=== PATIENT | female | born 1980 | race Caucasian/White ===

== ENCOUNTER 2020-09-29 15:00 | Inpatient (IN) | payer OTHER ==
[~2020-09-29] VITALS: Ht 172.7 cm; Wt 104.2 kg
[2020-09-29] VITALS (11 sets, daily range): BP systolic 96–178; BP diastolic 59–101
[2020-09-29] MEDS ORDERED: SODIUM BICARB ADULT 8.4% 50 MEQ/50 ML DISP.SYRIN. IV ONE (15:15)
[2020-09-29 15:29] LABS: BASE EXCESS ABG -5 mmol/L (-3-3); HCO3 ABG 17 mmol/L (21-28); PCO2 ABG 23 mmHg (35-46); PO2 ABG 60 mmHg (75-108); SAT O2 ABG 93 % (92-99)
[2020-09-29 15:30] LABS: CORRECTED PCO2 ABG 26 mmHg; CORRECTED PH ABG 7.44; CORRECTED PO2 ABG 70 mmHg
[2020-09-29] MEDS ORDERED: IV NORMAL SALINE 1000ML BAG 1,000 ML IV ONE (15:30)
--- NOTE | 2020-09-29 15:30 | NUR ---
Pt admitted to room 105 from [facility] surg unit via ambulance. Pt is very anxious and c/o horrible pain to her right arm. Right arm is red, hot to touch, and swollen. Redness extends from the entirety of the arm and onto her chest and up her neck. Conservation Science Officer unable to draw labs, pt verbally consented to central line placement and IR notified. PT has cell phone and called mother to update her. This nurse updated . Pt ST on monitor, see admission for further information.
[2020-09-29 15:47] LABS: FIO2 ABG 40/5LNC
[2020-09-29] MEDS ORDERED: INSU100C SQ (15:49)
[2020-09-29] MEDS ORDERED: INSU100I13 SQ (15:49)
[2020-09-29] MEDS ORDERED: ONDA4TAB7 IVP (15:49)
--- NOTE | 2020-09-29 15:50 | NUR ---
Dr. Willis notified of pts admission and current status, please see orders for further details.
[2020-09-29] MEDS: MORPHINE SULFATE 4 MG/ML VIAL. IV PRN ×2 (15:57→20:58)
[2020-09-29] MEDS: ACETAMINOPHEN 325 MG TABLET. PO PRN (16:00)
--- NOTE | 2020-09-29 16:01 | RAD ---
EXAM: Chest, single view. HISTORY: Central line placement. COMPARISON: 09/28/2020 FINDINGS: A frontal view of the chest is obtained. There is a right internal jugular catheter with th e tip in the right atrium. There is no pneumothorax. There is a small right pleural effusion and righ t pleural thickening. There is diffuse right lung interstitial infiltrate. There is left basilar atel ectasis or infiltrate. The heart is normal in size. IMPRESSION: 1. Right internal jugular catheter with the tip in the right atrium. There is no pneumothorax. 2. Small right pleural effusion and pleural thickening with diffuse right lung infiltrate. There is a lso stable left basilar atelectasis or interstitial infiltrate. Electronically signed by: Geovanna Langford MD (09/29/2020 3:59 PM) [id number]
--- NOTE | 2020-09-29 16:11 | RAD ---
Procedure: Placement of right internal jugular central line at the bedside with ultrasound guidance Sterility: All elements of maximal sterile barrier technique including the use of a cap, mask, steril e gown, sterile gloves, large sterile sheet, appropriate hand hygiene, and 2% chlorhexidine for cutan eous antisepsis (or acceptable alternative antiseptic per current guidelines) were followed for this procedure. Consent: The procedure was explained in its entirety to the patient or the patients designated repres entative by a member of the treatment team, including a discussion of the risks, benefits and commonl y accepted alternatives to the procedure, as well as the expected consequences of no therapy whatsoev er. Discussion of the risks included, but was not limited to, those that are most frequent and thos e that are rare but possibly severe or life-threatening, as well as the possibility of unforeseen com plications. Technique and Findings: Following informed consent, the patient was prepped and draped in the usual s terile fashion. Ultrasound interrogation of the right neck revealed patency and compressibility of t he right internal jugular vein. A 21-gauge micropuncture was then used to gain access to this vein u nder ultrasound guidance. A hard copy ultrasound image was recorded. A guidewire was advanced centra lly over which, following dilatation, a triple-lumen central venous catheter was placed. The new cat heter was found to flush and aspirate normally. The catheter was secured in place. Sterile dressings were applied. No immediate complications were identified. Follow-up chest radiograph demonstrates the catheter to be in acceptable position. Low lung volumes noted. IMPRESSION: Ultrasound-guided placement of right internal jugular triple-lumen central venous cathete r Electronically signed by: Darin Robbins MD (09/29/2020 4:09 PM) [id number]
[2020-09-29 16:24] LABS: BASO # 0.1 x10^3/uL (0.0-0.2); BASO % 1 % (0-3); EOS # 0.1 x10^3/uL (0.0-0.7); EOS % 1 % (0-3); HEMATOCRIT 37.1 % (36.0-47.0); LYMPH % 6 % (24-48); MEAN CORPUSCULAR HEMOGLOBIN 32 pg (25-35); MEAN CORPUSCULAR HGB CONC 35 g/dL (31-37); MEAN CORPUSCULAR VOLUME 93 fL (79-100); MONO % 6 % (0-9); NEUT # 13.6 x10^3/uL (1.8-7.7); NEUT % 86 % (31-73); PLATELET COUNT 191 x10^3/uL (140-400); RED CELL DISTRIBUTION WIDTH 12.6 % (11.5-14.5); WHITE BLOOD COUNT 15.7 x10^3/uL (4.0-11.0)
[2020-09-29] MEDS: VANCOMYCIN PER PHARMACY MC PRN (16:32)
[2020-09-29 16:33] LABS: CALCIUM 8.3 mg/dL (8.5-10.1); CREATININE 0.7 mg/dL (0.6-1.0); GFR 93.2; POTASSIUM 3.7 mmol/L (3.5-5.1)
--- NOTE | 2020-09-29 16:34 | NUR ---
Pharmacy Vancomycin Dosing Note S:Consulted to monitor and dose vancomycin started 09/28/20. O:JONATAN SON is a 40 year old F with Cellulitis . Height: 5 feet, 8 inches Weight: 98.9 kg [place] Body Weight: 252.27 Adjusted Body Weight: Dosing Weight: Other Antibiotics: LABS: Last BUN: Last Creatinine: 1.2 Creatinine Clearance: mL/min Last WBC: Last Procalcitonin: Tmax (past 24 hours): Microbiology: I/O: Drug Levels: Last level: on at Last dose given 09/29/20 at 0517 Vancomycin Dosing: Loading Dose: 2000 mg x1 Dosing Weight: Target Trough: 10-20 A: 2GM IV VANCOMYCIN STARTED AT [facility] AND LAST DOSE OF 1.5GM IV GIVEN THIS MORNING AT 05:17AM P: 1. Continue Vancomycin 1500 mg IV q12h 2. Follow up Trough level on 09/30/20 at 0530 3. Pharmacy will continue to monitor, follow and adjust therapy as needed. [facility]EVAN [facility], 09/29/20 [id number]
[2020-09-29 16:40] LABS: ALBUMIN 2.2 g/dL (3.4-5.0); ALBUMIN/GLOBULIN RATIO 0.5 (1.0-1.7); MAGNESIUM 1.9 mg/dL (1.8-2.4); PHOSPHORUS 1.7 mg/dL (2.6-4.7); TOTAL BILIRUBIN 1.7 mg/dL (0.2-1.0); TOTAL PROTEIN 6.6 g/dL (6.4-8.2)
[2020-09-29 17:17] LABS: % BANDS 45 % (0-9); % LYMPHS 7 % (24-48); % MONOS 6 % (0-10); % SEGS 42 % (35-66); PLT ESTIMATE ADEQUATE (ADEQUATE); TOXIC GRANULATION MOD; TOXIC VACUOLATION SLIGHT
--- NOTE | 2020-09-29 17:30 | RAD ---
EXAM: Right shoulder, 3 views; right humerus, 2 views; right elbow, 2 views. HISTORY: Swelling. COMPARISON: None. FINDINGS: 3 views of the right shoulder and 2 views of the right humerus and elbow are obtained. Ther e is mild acromial clavicular joint osteoarthritis with a small inferiorly directed distal clavicular spur. There is a right subclavian catheter with the tip excluded from the [id number]. No pneumoth orax is seen. There is a small right pleural effusion and diffuse increased right lung interstitial o pacity. There is no fracture, dislocation or subluxation. There is right upper extremity soft tissue edema. Evaluation for an elbow effusion is limited due to oblique lateral positioning. IMPRESSION: 1. Mild acromioclavicular joint osteoarthritis with small inferiorly directed distal clavicular spur. 2. No acute osseous finding. 3. Right upper extremity soft tissue edema. 4. Small right pleural effusion and diffuse right lung interstitial infiltrate. There is a right cent ral venous catheter partially included on the [id number]-rt-[id number]. Electronically signed by: Geovanna Langford MD (09/29/2020 5:28 PM) [id number]
--- NOTE | 2020-09-29 17:30 | RAD ---
EXAM: Right shoulder, 3 views; right humerus, 2 views; right elbow, 2 views. HISTORY: Swelling. COMPARISON: None. FINDINGS: 3 views of the right shoulder and 2 views of the right humerus and elbow are obtained. Ther e is mild acromial clavicular joint osteoarthritis with a small inferiorly directed distal clavicular spur. There is a right subclavian catheter with the tip excluded from the [id number]-wa-[id number]. No pneumoth orax is seen. There is a small right pleural effusion and diffuse increased right lung interstitial o pacity. There is no fracture, dislocation or subluxation. There is right upper extremity soft tissue edema. Evaluation for an elbow effusion is limited due to oblique lateral positioning. IMPRESSION: 1. Mild acromioclavicular joint osteoarthritis with small inferiorly directed distal clavicular spur. 2. No acute osseous finding. 3. Right upper extremity soft tissue edema. 4. Small right pleural effusion and diffuse right lung interstitial infiltrate. There is a right cent ral venous catheter partially included on the [id number]-fx-kuuy. Electronically signed by: Geovanna Langford MD (09/29/2020 5:28 PM) [id number]
--- NOTE | 2020-09-29 17:30 | RAD ---
EXAM: Right shoulder, 3 views; right humerus, 2 views; right elbow, 2 views. HISTORY: Swelling. COMPARISON: None. FINDINGS: 3 views of the right shoulder and 2 views of the right humerus and elbow are obtained. Ther e is mild acromial clavicular joint osteoarthritis with a small inferiorly directed distal clavicular spur. There is a right subclavian catheter with the tip excluded from the schfc-wm-iooz. No pneumoth orax is seen. There is a small right pleural effusion and diffuse increased right lung interstitial o pacity. There is no fracture, dislocation or subluxation. There is right upper extremity soft tissue edema. Evaluation for an elbow effusion is limited due to oblique lateral positioning. IMPRESSION: 1. Mild acromioclavicular joint osteoarthritis with small inferiorly directed distal clavicular spur. 2. No acute osseous finding. 3. Right upper extremity soft tissue edema. 4. Small right pleural effusion and diffuse right lung interstitial infiltrate. There is a right cent ral venous catheter partially included on the fnbja-vx-eoel. Electronically signed by: Geovanna Langford MD (09/29/2020 5:28 PM) [id number]
[2020-09-29] MEDS: HYDROmorphone 2 MG/ML VIAL IVP PRN ×2 (17:35→23:56)
[2020-09-29] MEDS ORDERED: VANCOMYCIN 1.5 GM in IV NORMAL SALINE 500ML BAG 500 ML IV SCH (18:00)
--- NOTE | 2020-09-29 18:51 | NUR ---
Cj notified of consult.
[2020-09-29] MEDS ORDERED: CLINDAMYCIN 600MG PREMIX 50 ML IV SCH (20:30)
[2020-09-29] MEDS: CEFEPIME HCL IV Push 2 GM VIAL. IVP SCH ×2 (20:34→21:35)
[2020-09-29] MEDS: INSULIN LISPRO 300 UNITS/3 ML VIAL. SQ SCH (20:52)
[2020-09-29] MEDS: INSULIN GLARGINE SYRINGE. SQ SCH (20:53)
[2020-09-29] MEDS: IV NORMAL SALINE 1000ML BAG 1,000 ML IV SCH (20:59)
[2020-09-29] MEDS: CLINDAMYCIN 600MG PREMIX 50 ML IV SCH (21:35)
[2020-09-30] VITALS (21 sets, daily range): BP systolic 104–167; BP diastolic 54–108
[2020-09-30] MEDS: IV NORMAL SALINE 1000ML BAG 1,000 ML IV SCH ×2 (01:57→13:02)
[2020-09-30] MEDS: MORPHINE SULFATE 4 MG/ML VIAL. IV PRN ×7 (01:57→23:46)
[2020-09-30] MEDS: HYDROmorphone 2 MG/ML VIAL IVP PRN ×5 (04:50→22:31)
[2020-09-30 05:20] LABS: BASO # 0.2 x10^3/uL (0.0-0.2); BASO % 1 % (0-3); EOS # 0.2 x10^3/uL (0.0-0.7); EOS % 1 % (0-3); HEMATOCRIT 36.4 % (36.0-47.0); HEMOGLOBIN 12.4 g/dL (12.0-15.5); LYMPH # 1.6 x10^3/uL (1.0-4.8); LYMPH % 10 % (24-48); MEAN CORPUSCULAR HEMOGLOBIN 32 pg (25-35); MEAN CORPUSCULAR HGB CONC 34 g/dL (31-37); MEAN CORPUSCULAR VOLUME 94 fL (79-100); MONO # 1.3 x10^3/uL (0.0-1.1); MONO % 8 % (0-9); NEUT # 13.1 x10^3/uL (1.8-7.7); NEUT % 80 % (31-73); PLATELET COUNT 216 x10^3/uL (140-400); RED BLOOD COUNT 3.88 x10^6/uL (3.50-5.40); RED CELL DISTRIBUTION WIDTH 12.8 % (11.5-14.5); WHITE BLOOD COUNT 16.3 x10^3/uL (4.0-11.0)
[2020-09-30] MEDS: CEFEPIME HCL IV Push 2 GM VIAL. IVP SCH ×3 (05:43→21:30)
[2020-09-30] MEDS: CLINDAMYCIN 600MG PREMIX 50 ML IV SCH ×3 (05:43→21:30)
[2020-09-30 05:49] LABS: VANC TR 6.4 mcg/mL (10.0-20.0)
[2020-09-30 05:52] LABS: ALBUMIN 2.1 g/dL (3.4-5.0); ALBUMIN/GLOBULIN RATIO 0.5 (1.0-1.7); CALCIUM 8.2 mg/dL (8.5-10.1); CREATININE 0.7 mg/dL (0.6-1.0); GFR 93.2; POTASSIUM 3.9 mmol/L (3.5-5.1); TOTAL BILIRUBIN 1.6 mg/dL (0.2-1.0); TOTAL PROTEIN 6.7 g/dL (6.4-8.2)
--- NOTE | 2020-09-30 05:56 | EKG ---
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
--- NOTE | 2020-09-30 06:12 | NUR ---
Patient HR continually increased throughout shift, reached 130s approx 5:00, even when she appears to be at rest. Fluid resuscitation efforts continuous throughout the night as well as pain management. Temperature retaken to be at 98.5. Labs drawn early this AM with no criticals. Dr. Willis notified of increase HR, wanted EKG. This was completed by RT.
[2020-09-30] MEDS: VANCOMYCIN PER PHARMACY MC PRN ×3 (06:23→06:31)
[2020-09-30] MEDS: VANCOMYCIN 1.5 GM in IV NORMAL SALINE 500ML BAG 500 ML IV SCH ×3 (06:29→22:31)
--- NOTE | 2020-09-30 06:32 | NUR ---
Pharmacy Vancomycin Dosing Note S:Consulted to monitor and dose vancomycin started 09/28/20. O:JONATAN SON is a 40 year old F with Cellulitis Pneumonia POSSIBLE PNA . Height: 5 feet, 8 inches Weight: 98.9 kg [place] Body Weight: 63.90 Adjusted Body Weight: 77.90 Dosing Weight: Other Antibiotics: CEFEPIME CLINDA LABS: Last BUN: 18 Last Creatinine: 0.7 Creatinine Clearance: >120 mL/min Last WBC: 16.3 Last Procalcitonin: - Tmax (past 24 hours): 102.7 Microbiology: 09/30 [facility]X NGTD I/O: 3689/950 Drug Levels: Last Trough level: 6.4 on 09/30/20 at 0510 Last dose given 09/29/20 at 0517 Vancomycin Dosing: Loading Dose: 2000 mg x1 Dosing Weight: Target Trough: 15-20 A: Based on: LOW TROUGH, P: 1. NEW REGIMEN OF Vancomycin 1500 mg IV q8h 2. Follow up Trough level on 10/01/20 at 0600 3. Pharmacy will continue to monitor, follow and adjust therapy as needed. ROSALINA BORGES [facility], 09/30/20 [id number]
[2020-09-30] MEDS ORDERED: DULoxetine HCL 30 MG CAPSULE.DR PO SCH (09:00)
[2020-09-30] MEDS ORDERED: IOHEXOL 350 MG/ML 100 ML VIAL. IV ONE ×2 (09:15→15:45)
[2020-09-30] MEDS ORDERED: CONTRAST GIVEN. MC PRN ×2 (09:30→16:00)
--- NOTE | 2020-09-30 10:23 | HP ---
ADMIT DATE: 09/29/2020 HISTORY OF PRESENT ILLNESS: The patient is a 40-year-old female patient who apparently mowed her lawn on Sunday, 09/26 and early on Sunday morning at around 4 a.m., she started having complaint of pain in her right arm and right shoulder. She was seen at the Urgent Clinic, and was discharged home. She was unable to get her pain medication filled at the pharmacy and the pain became very severe, so she went back to the emergency room and again she was given medication and discharged home. She came back on Sunday night and was admitted to [facility] with same complaint. She was also found to have what seemed to be like a boil in her left buttock and was started on IV vancomycin and also possible pneumonia as she had a chest x-ray, which read as suspected focal infiltrate or scarring within the right upper lobe and mild elevation of the right hemidiaphragm. Her CT angio showed that the patient has degraded evaluation for the pulmonary arteries due to contrast bolus timing. With persistent clinical concern, recommend repeat imaging with V/Q scan to further assess. There was right-sided septal thickening. The ground-glass opacities may represent asymmetric pulmonary edema or infection and bilobed right upper lobe nodular opacity. The patient was admitted to [facility] and was started on antibiotics in the form of ceftriaxone, azithromycin as well as vancomycin. She was also continued on IV fluid; however, her pain was extremely severe that even morphine was not controlling and we started her on hydromorphone. Unfortunately, the patient continued to be extremely tachypneic, tachycardic, and therefore, the patient was transferred to ICU of [facility]. While at [facility], we did order venous Doppler ultrasound of right upper extremity, which showed no evidence of deep vein thrombosis and as her bilirubin was elevated together with alkaline phosphatase we did actually abdominal ultrasound, which basically showed hepatic steatosis, obscured common bile duct and midline structure due to patient's respiratory motion. She has 3.8 cm anechoic lesion adjacent to the splenic hilum, possibly artifactual or due to renal cyst. The patient was transferred to [facility] where we continued IV antibiotics as well as IV fluid in the form of vancomycin and cefepime. Continue with pain management. PAST MEDICAL HISTORY: Significant for hypertension, hyperlipidemia, type 2 diabetes mellitus and fatty liver. According to her she is noncompliant and her blood sugar has been poorly controlled, in fact, her blood sugar while in the emergency room of [facility] was 565. PAST SURGICAL HISTORY: Significant for a reconstruction surgery of the left hand. ALLERGIES: SHE IS ALLERGIC TO PENICILLIN AND SULFA DRUGS. MEDICATIONS: She is currently on Lantus insulin 20 units at bedtime and Humalog insulin 20 units 4 times a day. FAMILY HISTORY: She has 2 younger sisters. one of them has bipolar disorder. Does not know her father. Her mother is still alive at age of 60 and is known to have diabetes. SOCIAL HISTORY: She is , has two sons. She quit smoking years ago but drinks alcohol occasionally. Does not use any drugs. 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 PHYSICAL EXAMINATION: GENERAL: On arrival to the emergency room, she was clearly tachypneic. There is no pallor, jaundice, cyanosis, or thyromegaly. No jugular venous distention, no lower limb edema. VITAL SIGNS: Heart rate was 140, blood pressure was 178/101, temperature was 102.7, respiratory rate was 15 and oxygen saturation was 94% on 5 liters of oxygen. HEENT: Examination of the head, eyes, ears, nose, and throat: Normocephalic, atraumatic. NECK: Supple. HEART: Showed normal first and second heart sounds, no gallop, murmur. CHEST: Showed central trachea, equal reduced chest expansion, reduced air entry, vesicular sounds with crepitation mostly on the right side posteriorly. I could not appreciate any rhonchi. ABDOMEN: Distended, soft, nontender. NEUROLOGIC: She is awake, alert, responding appropriately. All cranial nerves intact. She moves extremities without difficulty. She is able to stand and ambulate. Her right upper extremity is markedly swollen. Marked tenderness in the right forearm and right elbow. She also has tenderness in the back of her chest posteriorly on the right side mostly. She has an eschar on the left gluteal area. LABORATORY DATA: Her lab work on arrival showed a white cell count 15,700, hemoglobin 13, hematocrit 37, MCV 93, and platelet count of 191,000 with a manual differential showed 86% polymorphs 6% lymphocytes, 6% monocytes. Her arterial blood gas on arrival showed a pH of 7.47, pCO2 of 23, pO2 of 60, bicarbonate of 17 and oxygen saturation was 96% on FIO2 of 40%. Her chemistry on arrival showed her serum sodium to be 136, potassium 3.7, chloride 99, bicarbonate 23, anion gap of 14, BUN 15, creatinine 0.7. Estimated GFR was 93 mL per minute. Her glucose was 137, calcium was 8.3. Phosphorus 1.7, magnesium was 1.9, total bilirubin 1.7. AST, ALT, alkaline phosphatase were normal. Beta natriuretic peptide was 462 and a total protein 6.6, albumin was 2.2. Her lactic acid was down to 1.7. Chest x-ray again showed right internal jugular catheter with the tip in the right atrium. There is no pneumothorax. She has small right pleural effusion and pleural thickening with diffuse right lung infiltrate. There is also stable left basilar atelectasis and interstitial infiltrate. We have done an x-ray of the right shoulder, right humerus in right view and showed that there is mild acromioclavicular joint osteoarthritis with small inferior directed distal clavicular spur. There is no acute osseous finding. Right upper extremity soft tissue edema, small right pleural effusion, diffuse right lung interstitial infiltrate. There is a right central venous catheter partially included the field of view. We did some blood cultures [facility], the result of which is still pending at the time of this dictation. ASSESSMENT AND PLAN: The patient was admitted to [facility] with right upper extremity cellulitis and pneumonia involving the right lung with right side pleural effusion, acute hypoxic respiratory failure, poorly controlled type 2 diabetes mellitus, hepatic steatosis with elevation of bilirubin, alkaline phosphatase, although ultrasound showed no evidence of acute cholecystitis or cholelithiasis. Plan is to continue with IV antibiotic and IV fluids and consult the orthopedic. We will consult the infectious disease specialist. MELISSA/BUCK DR: Kali TID: [id number]
[2020-09-30] MEDS: INSULIN LISPRO 300 UNITS/3 ML VIAL. SQ SCH ×4 (11:09→20:47)
--- NOTE | 2020-09-30 11:40 | CONS ---
DATE OF CONSULTATION: 09/30/2020 PULMONARY CONSULTATION ATTENDING PHYSICIAN: Jannette Willis MD REASON FOR CONSULTATION: Hypoxic respiratory failure, abnormal chest x-ray. HISTORY OF PRESENT ILLNESS: The patient is a 40-year-old female with a BMI of 33. She presented to [facility] after she was mowing her lawn and complained of pain in her right arm and right shoulder. She was seen at the urgent clinic previously and was discharged on pain medication and I assume some antibiotics. The patient also seemed like a boil in her left buttock. She was started on IV vancomycin. She underwent CT angiogram on , which showed no obvious central pulmonary emboli, but due to contrast bolus timing, distal pulmonary vessels were not well visualized. There was some right-sided septal thickening and there was also some right upper lobe bilobed nodular opacity 1.4 cm in size. The patient was brought into the hospital for further care. She has right arm rash as well as swelling. Has been seen by Infectious Disease for possible cellulitis. She is mildly tachypneic. She is requiring oxygen via nasal cannula. Her saturation is stable, but her heart rate is in the 130s and 140s. She is currently on 6 liters. She denies any significant tobacco history. She denies any substance abuse. No history of asthma. I have reviewed the patient's chest x-ray and it shows evidence of moderate right-sided pleural effusion with pleural thickening and associated infiltrate, atelectasis. PAST MEDICAL HISTORY: Significant for hypertension, hyperlipidemia, type 2 diabetes. PAST SURGICAL HISTORY: Reconstruction surgery of the left hand. ALLERGIES: PENICILLIN AND SULFA. MEDICATIONS: Reviewed as listed in the [facility] including broad-spectrum antibiotic of vancomycin and cefepime. REVIEW OF SYSTEMS: A 12-point system obtained. Pertinent positives discussed in my present illness, otherwise noncontributory. All systems that were negative were reviewed as well. SOCIAL HISTORY: Denies any tobacco use. FAMILY HISTORY: Noncontributory to lungs. PHYSICAL EXAMINATION: VITAL SIGNS: Reviewed. She is tachycardic. Blood pressure 152/90, pulse ox is 94% on 6 liters. NECK: Supple. LUNGS: With diminished breath sounds on the right chest. She has swelling in the right arm and rash. ABDOMEN: Soft, nontender. CARDIOVASCULAR: With tachycardia. EXTREMITIES: With trace pitting edema. LABORATORY DATA: Reviewed. White cell count 16.3, hemoglobin 12.4 and platelets are 216. BUN 18, creatinine 0.7. Albumin is 2.1. ABGs with a pH of 7.44, pCO2 of 23, pO2 of 60 on 40% FIO2. IMPRESSION: 1. Acute hypoxic respiratory failure secondary to right-sided pleural effusion and possible pneumonia. 2. Abnormal CT chest done on at [facility] with no evidence of central pulmonary emboli, but the contrast was poor and unable to see segmental and subsegmental pulmonary arteries. She has some asymmetric right septal thickening and also a right upper lobe bilobed opacity 1.4 cm in size. Now, her chest x-ray has shown increasing pleural effusion and pleural thickening and associated infiltrates. We will benefit from repeat CT chest. 3. No significant tobacco history. 4. Right hand cellulitis. Infectious Disease is following. 5. Tachycardia, likely secondary to pain. RECOMMENDATIONS: 1. Continue present oxygen, keep saturation 94 and above. 2. Continue broad-spectrum antibiotic per Infectious Disease. 3. Repeat CT chest has been ordered by Dr. Willis and will follow the results. 4. The patient may need thoracentesis. 5. Follow blood cultures. 05/10 has been positive for gram-positive cocci. 6. Venous Doppler of the upper extremity did not show any evidence of DVT. 7. Pain control. Discussed with RN. We will follow along with you. NOÉ/MADISON DR: Jeronimo TID: [id number]
[2020-09-30] MEDS: LABETALOL HCL 100 MG TABLET. PO SCH ×2 (12:51→20:40)
--- NOTE | 2020-09-30 13:33 | PN ---
DATE: 09/30/2020 SUBJECTIVE: The patient is resting, propped up in bed, continued to be extremely tachypneic, tachycardic, continued to complain of severe pain in her right upper extremity, right chest, unable to take deep breath. PHYSICAL EXAMINATION: GENERAL: When I examined her, there was no pallor, jaundice, cyanosis or thyromegaly. No jugular venous distention, no lower limb edema. VITAL SIGNS: Her heart rate was 138, blood pressure is 125/87, her temperature this morning was 98.5, respiratory rate was 24 and oxygen saturation was 93% on 6 liters of oxygen via nasal cannula. HEAD, EYES, EARS, NOSE AND THROAT: Normocephalic, atraumatic. NECK: Supple. HEART: Showed normal first and second heart sounds clearly in sinus tachycardia. There is no rub or murmur. CHEST: Shows central trachea, equal reduced chest expansion, reduced air entry, vesicular sounds with crepitation mostly in the right side posteriorly. ABDOMEN: Distended, soft, nontender. NEUROLOGIC: She is awake, alert, responding appropriately. Cranial nerves intact. She moves extremities without difficulty, except her right upper extremity is markedly swollen and extremely tender, particularly in the forearm and right elbow with some tenderness also in the right shoulder and right chest wall posteriorly. Her intake over the last 24 hours was incompletely recorded. LABORATORY DATA: This morning showed a white cell count of 16,300, hemoglobin 12.4, hematocrit 36, MCV 94 and platelet count 216,000 with a manual differential showed 80% polymorphs, 10% lymphocytes and 8% monocytes. Her chemistry this morning showed a serum sodium 136, potassium 3.9, chloride 102, bicarbonate 23, anion gap of 11, BUN 18, creatinine 0.7. Estimated GFR was 93 mL per minute. Her glucose was 123, calcium was 8.2. Total bilirubin 1.6. AST, ALT, alkaline phosphatase slightly elevated. Total protein 6.7, albumin 2.1. Her vancomycin trough level was 6.5, it is subtherapeutic. ASSESSMENT: 1. Acute hypoxic respiratory failure. 2. Community-acquired pneumonia versus asymmetric pulmonary edema. 3. Markedly swollen right upper extremity, possible cellulitis and possible also compartment syndrome. The patient has also what seems to be an abscess in her left gluteal area. Other medical problems include; A. Poorly controlled type 2 diabetes mellitus. B. Hypertension. C. Hyperlipidemia. D. Fatty liver. E. Depression. F. Peripheral neuropathy. PLAN: My plan is to continue with IV antibiotic. Continue with IV fluid. I have consulted Infectious Disease specialist as well as general surgeon for compartment syndrome, winder helper for acute respiratory failure. I added CK to the lab work, to see if the patient has rhabdomyolysis and I will discuss the presentation with Dr. Del Angel and to repeat the CT angio of the chest. [place] DR: Kali TID: [id number]
[2020-09-30] MEDS: ACETAMINOPHEN 325 MG TABLET. PO PRN ×2 (13:56→20:40)
--- NOTE | 2020-09-30 16:40 | NUR ---
SS following for discharge planning. SS reviewed pt chart and discussed with pt RN. Pt is from home with spouse and is currently requiring oxygen at six liters nasal canula. Pt on IV Vancomycin and IV Clindamycin. Pt has no home oxygen. SS will continue to follow for discharge planning.
--- NOTE | 2020-09-30 16:41 | CONS ---
DATE OF CONSULTATION: 09/30/2020 REFERRING PHYSICIAN: Jannette Willis MD REASON FOR CONSULTATION: Right upper extremity cellulitis, antibiotic management. HISTORY OF PRESENT ILLNESS: A 40-year-old female with diabetes, poorly controlled, presented to ED at [facility] on 09/28/2020 with severe back pain, muscle spasms, which started the day prior to admission. The patient was mowing her lawn and started having pain over the right upper extremity, mainly in the neck and the right upper arm. She denied any trauma. She denied any fevers, chills. She had swelling, pain, redness. She also had a bite over the left buttock for which she was seen in urgent care and was given Flexeril and Bactrim prior to admission. There was no drainage. The patient was febrile with tachycardia on room air. CTA of the chest showed degraded evaluation of pulmonary artery due to contrast bolus timing, right-sided septal thickening, ground glass opacities, asymmetric pulmonary edema or infection, bilobed right upper lobe nodularity, recommend followup. Chest x-ray showed suspected focal infiltrate in the right upper lobe, mild elevation of the left hemidiaphragm. The patient's blood sugar was greater than 500. D-dimer was elevated. White count was 16.9, hemoglobin of 16, hematocrit of 47.8, lymphocyte of 0.6, bands of 24. Lactate of 5.5, glucose of 565, bicarbonate of 19. Sodium of 131. CK of 517, alkaline phosphatase was 148, creatinine of 1.2. Acetone was negative. UA showed greater than 1000 glucose. SARS COVID was negative. Blood cultures at [place] 05/10 bottles turned positive this morning for gram-positive cocci in pairs and small clusters. UA was negative, less than 10,000 CFU. The patient was admitted under Dr. Patricio. The patient was started on IV vancomycin. IV fluids were stopped. She received insulin. The patient was then transferred to [facility] last night for respiratory failure and admitted to ICU. The patient was on vancomycin. Last night, I started the patient on cefepime and clindamycin. The patient had tolerated ceftriaxone well at [facility] per discussion with pharmacy at [facility]. The patient also had ultrasound of the liver, which did not show any stones or blockage, does have hepatic steatosis. Upon arrival at [facility], the patient was admitted to ICU. Her white count was 15.7, hemoglobin of 13, platelets of 191, bands of 45. This morning, her white count is 16,000. Lactate was 1.7. Creatinine of 0.7. BNP of 462. Albumin of 2.2. CK was down to 140, glucose is at 223. Total bilirubin of 1.6, AST of 48. Albumin of 2.1. The patient underwent a right IJ placement. Chest x-ray showed no pneumothorax, small right pleural effusion and pleural thickening with diffuse lung infiltrates. Elbow x-ray showed no acute osseous finding. Humeral x-ray did not show any acute osseous findings. Shoulder x-ray did not show any acute osseous finding. CTA chest is pending at this time. Pulmonary has been consulted. Today, the patient states her swelling is a little less, still has quite a bit of tightness. Denies any numbness or tingling. Continues to feel weak. Denies any fevers, chills, nausea, vomiting at this time, diarrhea, abdominal pain, symptoms. Denies any headache, sore throat, difficulty swallowing, ear pain or drainage. Denies any recent procedure. Denies any recent immunization. Does say that she realizes her sugar is not under good control. PAST MEDICAL HISTORY: Diabetes mellitus, noncompliant; chronic pain syndrome, cervical neck muscle spasm. ALLERGIES: SULFA AND PENICILLIN WITH HIVES. Tolerated Rocephin well, tolerating cefepime well. CURRENT MEDICATIONS: IV vancomycin, clindamycin. The patient had been on ceftriaxone, Flagyl, clindamycin and vancomycin at [facility]. SOCIAL HISTORY: Nonsmoker, nondrinker. Lives at home. FAMILY HISTORY: As per the HPI. REVIEW OF SYSTEMS: Significant left upper extremity pain, some back pain, intermittent nausea, left buttock cheek discomfort. Otherwise negative. PHYSICAL EXAMINATION: VITAL SIGNS: Temperature 98.4, pulse 141, respiratory rate 34, blood pressure 152/90, oxygen saturation 91% on 6 liters O2 by nasal cannula. GENERAL: Alert, oriented x 3, tired appearing female, lying in bed comfortably, in no acute distress. HEENT: Normocephalic, atraumatic. Anicteric. No thrush. Oral mucosa moist, on O2 by nasal cannula. NECK: Supple, no JVD, no lymphadenopathy. Right neck central line clean. LUNGS: Poor inspiratory effort, no wheezing. Decreased breath sounds at the bases. HEART: S1, S2, tachycardia. No murmurs. ABDOMEN: Soft, nontender, nondistended, no rebound or guarding. EXTREMITIES: Severe Right upper extremity swelling extending from hand to shoulder, mild redness, diffuse erythema and tenderness though improving per patient. Radial pulse palpable. Decreased range of motion due to extreme swelling. No wrist, elbow or shoulder Effusion noted DERMATOLOGIC: No other open skin wounds noted. No generalized rash except for above. Dry scab present over the left cheek. No abscess, no fluctuance. NEUROLOGIC: Alert, oriented x 3, grossly nonfocal. PSYCHIATRIC: Cooperative, calm, somewhat flat affect. LABORATORY DATA: WBC 16.3 was 15.7, hemoglobin 12.4, hematocrit 36.4, platelets 216. Sodium 136, potassium 3.9, chloride 102, bicarbonate 23, BUN 18, creatinine 0.7, glucose 223. Lactate 1.7. BNP 462. CK is down to 140 here. Albumin 2.1. Vancomycin level is 6.4. IMAGIN. CTA at [facility] as above. 2. Humeral shoulder, elbow, chest x-ray here as above. 3. CTA chest as above. 4. CTA chest at [facility] is pending at this time. MICROBIOLOGY: Blood culture 1/4 bottles positive at [facility] for GPC in pairs and clusters. IMPRESSION: 1. Severe sepsis 2. Bacteremia, 1/4 bottles at outside hospital, Gram-positive cocci. 3. Leukocytosis. 4. Severe right upper extremity swelling and pain. CTA negative 5. Right upper extremity cellulitis. 6. Diabetic ketoacidosis. 7. Abnormal LFTs. 8. Protein calorie malnutrition. 9. Neck pain with underlying chronic neck pain and back pain. 10. High CK. 11. Left buttock skin lesion, improving. No evidence of abscess. 12. History of allergies to penicillin has tolerated ceftriaxone well at outside hospital RECOMMENDATIONS: 1. Continue IV vancomycin, cefepime and clindamycin. 2. Monitor labs and cultures. Vancomycin dosing per pharmacy 3. Repeat blood cultures today from line and peripheral. 4. Follow up GPC from blood cultures at [facility]. 5. Followup CTA. 6. Obtain CT right upper extremity. 7. Monitor neurologic status closely. 8. Agree with General Surgery consultation to rule out compartment syndrome. 9. Elevate right upper extremity. 10. Continue supportive care. 11. Continue local care. 12. Maintain aspiration precaution. Discussed with Dr. Willis. Thank you, Dr. Willis for consulting Infectious Disease to participate in this patient's care. If you have any questions, do not hesitate to contact me. Discussed with nursing staff. CCT time 45 minutes. AD/MAX DR: Enedina TID: [id number] [facility]
--- NOTE | 2020-09-30 17:17 | RAD ---
STUDY: CT of the right upper extremity without contrast INDICATION: Swelling and pain COMPARISON: Right shoulder, humerus, elbow radiographs 09/29/2020 TECHNIQUE: Axial CT imaging of the right upper extremity performed without contrast. Coronal and sagi ttal reformats were obtained. One or more of the following individualized dose reduction techniques were utilized for this examinat ion: 1. Automated exposure control 2. Adjustment of the mA and/or kV according to patient size 3. Use of iterative reconstruction technique. FINDINGS: No acute fracture or dislocation. There is mild acromioclavicular degenerative joint disease. The gle nohumeral joint is maintained. There is mild diffuse subcutaneous edema in the right arm, greatest ar ound the elbow. No definite fluid collection. No joint effusion. There are bilateral perihilar opacit ies and a small right pleural effusion. A right IJ central venous catheter tip is in place. Heart is normal in size. No pericardial effusion. The visualized portion of the upper abdomen is unremarkable. Evaluation limited by streak artifact. IMPRESSION: 1. No acute osseous abnormality. 2. Mild diffuse subcutaneous edema in the right upper extremity, greatest around the elbow. No defin ite drainable fluid collection. Evaluation of soft tissue limited by CT modality and noncontrast exam . 3. Small right pleural effusion and bilateral pulmonary opacities. Electronically signed by: Nkechi Trotter MD (09/30/2020 5:14 PM) [id number]
[2020-09-30] MEDS: GABAPENTIN 300 MG CAPSULE. PO SCH (20:39)
[2020-09-30] MEDS: DULoxetine HCL 30 MG CAPSULE.DR PO SCH (20:40)
[2020-09-30] MEDS: INSULIN GLARGINE SYRINGE. SQ SCH (20:48)
[2020-10-01] VITALS (24 sets, daily range): BP systolic 95–144; BP diastolic 56–87
[2020-10-01] MEDS: MORPHINE SULFATE 4 MG/ML VIAL. IV PRN ×5 (02:11→20:38)
[2020-10-01] MEDS: HYDROmorphone 2 MG/ML VIAL IVP PRN ×3 (04:18→18:06)
[2020-10-01] MEDS: ACETAMINOPHEN 325 MG TABLET. PO PRN (05:11)
[2020-10-01] MEDS: CEFEPIME HCL IV Push 2 GM VIAL. IVP SCH ×3 (05:38→21:36)
[2020-10-01] MEDS: CLINDAMYCIN 600MG PREMIX 50 ML IV SCH ×3 (05:39→21:35)
[2020-10-01 05:42] LABS: BASO # 0.1 x10^3/uL (0.0-0.2); BASO % 1 % (0-3); EOS # 0.2 x10^3/uL (0.0-0.7); EOS % 2 % (0-3); HEMOGLOBIN 11.9 g/dL (12.0-15.5); LYMPH # 1.5 x10^3/uL (1.0-4.8); LYMPH % 12 % (24-48); MEAN CORPUSCULAR HEMOGLOBIN 32 pg (25-35); MEAN CORPUSCULAR HGB CONC 34 g/dL (31-37); MEAN CORPUSCULAR VOLUME 94 fL (79-100); MONO # 1.7 x10^3/uL (0.0-1.1); MONO % 14 % (0-9); NEUT % 72 % (31-73); PLATELET COUNT 209 x10^3/uL (140-400); RED BLOOD COUNT 3.73 x10^6/uL (3.50-5.40); RED CELL DISTRIBUTION WIDTH 13.1 % (11.5-14.5); WHITE BLOOD COUNT 12.6 x10^3/uL (4.0-11.0)
[2020-10-01 06:01] LABS: ALBUMIN 1.9 g/dL (3.4-5.0); ALBUMIN/GLOBULIN RATIO 0.4 (1.0-1.7); CALCIUM 8.3 mg/dL (8.5-10.1); CREATININE 0.7 mg/dL (0.6-1.0); GFR 93.2; POTASSIUM 3.5 mmol/L (3.5-5.1); TOTAL BILIRUBIN 1.5 mg/dL (0.2-1.0); TOTAL PROTEIN 6.5 g/dL (6.4-8.2); VANC TR 14.2 mcg/mL (10.0-20.0)
[2020-10-01] MEDS: VANCOMYCIN 1.5 GM in IV NORMAL SALINE 500ML BAG 500 ML IV SCH ×3 (06:28→22:22)
[2020-10-01] MEDS: VANCOMYCIN PER PHARMACY MC PRN ×2 (06:28→06:30)
[2020-10-01] MEDS: IV NORMAL SALINE 1000ML BAG 1,000 ML IV SCH ×2 (06:30→20:34)
--- NOTE | 2020-10-01 06:31 | NUR ---
Pharmacy Vancomycin Dosing Note S:Consulted to monitor and dose vancomycin started 09/28/20. O:JONATAN SON is a 40 year old F with Cellulitis Bacteremia Pneumonia POSSIBLE PNA . Height: 5 feet, 8 inches Weight: 104.0 kg [place] Body Weight: 63.90 Adjusted Body Weight: 79.94 Dosing Weight: Other Antibiotics: CEFEPIME CLINDA LABS: Last BUN: 18 Last Creatinine: 0.7 Creatinine Clearance: >120 mL/min Last WBC: 12.6 Last Procalcitonin: - Tmax (past 24 hours): 98.4 Microbiology: 09/30 [facility] GPC 05/10 I/O: 4499/1350 Drug Levels: Last Trough level: 14.2 on 10/01/20 at 0530 Last dose given 09/30/20 at 2231 Vancomycin Dosing: Loading Dose: 2000 mg x1 Dosing Weight: Target Trough: 15-20 A: Based on: TROUGH, P: 1. CONTINUE Vancomycin 1500 mg IV q8h 2. Follow up Trough level NEEDED 3. Pharmacy will continue to monitor, follow and adjust therapy as needed. ROSALINA BORGES [facility], 10/01/20 1027
[2020-10-01] MEDS: INSULIN LISPRO 300 UNITS/3 ML VIAL. SQ SCH ×4 (07:30→20:42)
[2020-10-01] MEDS: LACTOBACILLUS RHAMNOSUS GG 1 CAPSULE. PO SCH ×2 (09:25→20:34)
--- NOTE | 2020-10-01 10:01 | PDOC ---
Infectious Disease Note Subjective: Subjective Patient sleepy but arousable Patient feels a little better Right upper extremity swelling and discomfort and redness has improved since slowly No new concerns per discussion with RN Vital Signs: Vital Signs Vital Signs Date Time Temp Pulse Resp B/P (MAP) Pulse Ox O2 Delivery O2 Flow Rate FiO2 10/01/20 09:24 94 Nasal Cannula 6.0 10/01/20 09:00 104 22 119/72 (88) 10/01/20 08:00 97.6 97.6 Physical Exam: PHYSICAL EXAM GENERAL: Alert, oriented x 3, lying in bed comfortably, in no acute distress. Appears tired, lethargic Able to stand up with support HEENT: Normocephalic, atraumatic. Anicteric. No thrush. Oral mucosa moist, on O2 by nasal cannula. NECK: Supple, no JVD, no lymphadenopathy. Right neck central line clean. LUNGS: Poor inspiratory effort, no wheezing. Decreased breath sounds at the bases. HEART: S1, S2, tachycardia. No murmurs. ABDOMEN: Soft, nontender, nondistended, no rebound or guarding. EXTREMITIES: Right upper extremity swelling extending from hand to shoulder, mild redness, diffuse erythema and tenderness though improved than yesterday. Radial pulse palpable. Decreased range of motion due to extreme swelling. No wrist, elbow or shoulder Effusion noted DERMATOLOGIC: No other open skin wounds noted. No generalized rash except for above. Dry scab present over the left cheek. No abscess, no fluctuance. NEUROLOGIC: Alert, oriented x 3, grossly nonfocal. PSYCHIATRIC: Cooperative, calm, somewhat flat affect. Medications: Inpatient Meds: Medications reviewed. Labs: Lab Laboratory Tests Test 09/30/20 10:58 09/30/20 18:33 09/30/20 20:44 10/01/20 05:30 Glucose (Fingerstick) 211 mg/dL (70-99) 199 mg/dL (70-99) 145 mg/dL (70-99) White Blood Count 12.6 x10^3/uL (4.0-11.0) Red Blood Count 3.73 x10^6/uL (3.50-5.40) Hemoglobin 11.9 g/dL (12.0-15.5) Hematocrit 35.0 % (36.0-47.0) Mean Corpuscular Volume 94 fL (79-100) Mean Corpuscular Hemoglobin 32 pg (25-35) Mean Corpuscular Hemoglobin Concent 34 g/dL (31-37) Red Cell Distribution Width 13.1 % (11.5-14.5) Platelet Count 209 x10^3/uL (140-400) Neutrophils (%) (Auto) 72 % (31-73) Lymphocytes (%) (Auto) 12 % (24-48) Monocytes (%) (Auto) 14 % (0-9) Eosinophils (%) (Auto) 2 % (0-3) Basophils (%) (Auto) 1 % (0-3) Neutrophils # (Auto) 9.0 x10^3/uL (1.8-7.7) Lymphocytes # (Auto) 1.5 x10^3/uL (1.0-4.8) Monocytes # (Auto) 1.7 x10^3/uL (0.0-1.1) Eosinophils # (Auto) 0.2 x10^3/uL (0.0-0.7) Basophils # (Auto) 0.1 x10^3/uL (0.0-0.2) Sodium Level 136 mmol/L (136-145) Potassium Level 3.5 mmol/L (3.5-5.1) Chloride Level 103 mmol/L (98-107) Carbon Dioxide Level 23 mmol/L (21-32) Anion Gap 10 (6-14) Blood Urea Nitrogen 18 mg/dL (7-20) Creatinine 0.7 mg/dL (0.6-1.0) Estimated GFR (Cockcroft-Gault) 93.2 BUN/Creatinine Ratio 26 (6-20) Glucose Level 167 mg/dL (70-99) Calcium Level 8.3 mg/dL (8.5-10.1) Total Bilirubin 1.5 mg/dL (0.2-1.0) Aspartate Amino Transf (AST/SGOT) 44 U/L (15-37) Alanine Aminotransferase (ALT/SGPT) 37 U/L (14-59) Alkaline Phosphatase 141 U/L (46-116) Total Protein 6.5 g/dL (6.4-8.2) Albumin 1.9 g/dL (3.4-5.0) Albumin/Globulin Ratio 0.4 (1.0-1.7) Vancomycin Level Trough 14.2 mcg/mL (10.0-20.0) Vancomycin Last Dose Date 09/30/20 Vancomycin Last Dose Time 2229 Test 10/01/20 09:29 Glucose (Fingerstick) 151 mg/dL (70-99) Objective: Assessment: 1. Sepsis 2. Bacteremia, 1/4 bottles at outside hospital, Gram-positive cocci. 3. Leukocytosis. 4. Severe right upper extremity swelling and pain. CTA negative 5. Right upper extremity cellulitis. 6. Diabetic ketoacidosis. 7. Abnormal LFTs. 8. Protein calorie malnutrition. 9. Neck pain with underlying chronic neck pain and back pain. 10. High CK. 11. Left buttock skin lesion, improving. No evidence of abscess. 12. History of allergies to penicillin has tolerated ceftriaxone well at outside hospital Plan: Plan of Care 1. Continue IV vancomycin, cefepime and clindamycin. 2. Monitor labs and cultures. Vancomycin dosing per pharmacy 3. Follow-up repeat blood cultures 4. Follow up GPC from blood cultures at [facility]. 5. Followup CTA. 6. CT right upper extremity. Resolved fluid collection 7. Monitor neurologic status closely. 8. Monitor closely for compartment syndrome 9. Elevate right upper extremity. 10. Continue supportive care. 11. Continue local care. 12. Maintain aspiration precaution. Discussed with CECIL EDWARDS MD October 01, 2020 10:01
--- NOTE | 2020-10-01 10:02 | PDOC ---
PULMONARY PROGRESS NOTES DATE: 10/01/20 TIME: 09:57 Subjective Patient clinically better. Tachycardia is resolved. Pain is still minimal. Still has right arm swelling. Vitals Vital Signs Date Time Temp Pulse Resp B/P (MAP) Pulse Ox O2 Delivery O2 Flow Rate FiO2 10/01/20 09:24 94 Nasal Cannula 6.0 10/01/20 09:00 104 22 119/72 (88) 10/01/20 08:00 97.6 97.6 General: Alert, No acute distress Lungs: Other (decreased right) Cardiovascular: S1 Abdomen: Soft, Other (obese) Extremities: Other (1+edema lower, right arm swelling) Labs Laboratory Tests Test 09/29/20 15:10 09/29/20 16:00 09/29/20 16:10 09/29/20 20:48 O2 Saturation 93 % (92-99) Arterial Blood pH 7.47 (7.35-7.45) Arterial Blood pH (Temp corrected) 7.44 Arterial Blood pCO2 at Patient Temp 23 mmHg (35-46) Arterial Blood pCO2 (Temp correct) 26 mmHg Arterial Blood pO2 at Patient Temp 60 mmHg (75-108) Arterial Blood pO2 (Temp corrected) 70 mmHg Arterial Blood HCO3 17 mmol/L (21-28) Arterial Blood Base Excess -5 mmol/L (-3-3) FiO2 40/5lnc White Blood Count 15.7 x10^3/uL (4.0-11.0) Red Blood Count 4.00 x10^6/uL (3.50-5.40) Hemoglobin 13.0 g/dL (12.0-15.5) Hematocrit 37.1 % (36.0-47.0) Mean Corpuscular Volume 93 fL (79-100) Mean Corpuscular Hemoglobin 32 pg (25-35) Mean Corpuscular Hemoglobin Concent 35 g/dL (31-37) Red Cell Distribution Width 12.6 % (11.5-14.5) Platelet Count 191 x10^3/uL (140-400) Neutrophils (%) (Auto) 86 % (31-73) Lymphocytes (%) (Auto) 6 % (24-48) Monocytes (%) (Auto) 6 % (0-9) Eosinophils (%) (Auto) 1 % (0-3) Basophils (%) (Auto) 1 % (0-3) Neutrophils # (Auto) 13.6 x10^3/uL (1.8-7.7) Lymphocytes # (Auto) 1.0 x10^3/uL (1.0-4.8) Monocytes # (Auto) 1.0 x10^3/uL (0.0-1.1) Eosinophils # (Auto) 0.1 x10^3/uL (0.0-0.7) Basophils # (Auto) 0.1 x10^3/uL (0.0-0.2) Segmented Neutrophils % 42 % (35-66) Band Neutrophils % 45 % (0-9) Lymphocytes % 7 % (24-48) Monocytes % 6 % (0-10) Toxic Granulation Mod Toxic Vacuolation Slight Dohle Bodies Present Platelet Estimate Adequate (ADEQUATE) Sodium Level 136 mmol/L (136-145) Potassium Level 3.7 mmol/L (3.5-5.1) Chloride Level 99 mmol/L (98-107) Carbon Dioxide Level 23 mmol/L (21-32) Anion Gap 14 (6-14) Blood Urea Nitrogen 15 mg/dL (7-20) Creatinine 0.7 mg/dL (0.6-1.0) Estimated GFR (Cockcroft-Gault) 93.2 BUN/Creatinine Ratio 21 (6-20) Glucose Level 237 mg/dL (70-99) Lactic Acid Level 1.7 mmol/L (0.4-2.0) Calcium Level 8.3 mg/dL (8.5-10.1) Phosphorus Level 1.7 mg/dL (2.6-4.7) Magnesium Level 1.9 mg/dL (1.8-2.4) Total Bilirubin 1.7 mg/dL (0.2-1.0) Aspartate Amino Transf (AST/SGOT) 34 U/L (15-37) Alanine Aminotransferase (ALT/SGPT) 31 U/L (14-59) Alkaline Phosphatase 107 U/L (46-116) HQ-Yks-M-Type Natriuretic Peptide 462 pg/mL (0-124) Total Protein 6.6 g/dL (6.4-8.2) Albumin 2.2 g/dL (3.4-5.0) Albumin/Globulin Ratio 0.5 (1.0-1.7) Glucose (Fingerstick) 230 mg/dL (70-99) 266 mg/dL (70-99) Test 09/30/20 04:02 09/30/20 05:10 09/30/20 10:58 09/30/20 18:33 Glucose (Fingerstick) 213 mg/dL (70-99) 211 mg/dL (70-99) 199 mg/dL (70-99) White Blood Count 16.3 x10^3/uL (4.0-11.0) Red Blood Count 3.88 x10^6/uL (3.50-5.40) Hemoglobin 12.4 g/dL (12.0-15.5) Hematocrit 36.4 % (36.0-47.0) Mean Corpuscular Volume 94 fL (79-100) Mean Corpuscular Hemoglobin 32 pg (25-35) Mean Corpuscular Hemoglobin Concent 34 g/dL (31-37) Red Cell Distribution Width 12.8 % (11.5-14.5) Platelet Count 216 x10^3/uL (140-400) Neutrophils (%) (Auto) 80 % (31-73) Lymphocytes (%) (Auto) 10 % (24-48) Monocytes (%) (Auto) 8 % (0-9) Eosinophils (%) (Auto) 1 % (0-3) Basophils (%) (Auto) 1 % (0-3) Neutrophils # (Auto) 13.1 x10^3/uL (1.8-7.7) Lymphocytes # (Auto) 1.6 x10^3/uL (1.0-4.8) Monocytes # (Auto) 1.3 x10^3/uL (0.0-1.1) Eosinophils # (Auto) 0.2 x10^3/uL (0.0-0.7) Basophils # (Auto) 0.2 x10^3/uL (0.0-0.2) Sodium Level 136 mmol/L (136-145) Potassium Level 3.9 mmol/L (3.5-5.1) Chloride Level 102 mmol/L (98-107) Carbon Dioxide Level 23 mmol/L (21-32) Anion Gap 11 (6-14) Blood Urea Nitrogen 18 mg/dL (7-20) Creatinine 0.7 mg/dL (0.6-1.0) Estimated GFR (Cockcroft-Gault) 93.2 BUN/Creatinine Ratio 26 (6-20) Glucose Level 223 mg/dL (70-99) Calcium Level 8.2 mg/dL (8.5-10.1) Total Bilirubin 1.6 mg/dL (0.2-1.0) Aspartate Amino Transf (AST/SGOT) 48 U/L (15-37) Alanine Aminotransferase (ALT/SGPT) 36 U/L (14-59) Alkaline Phosphatase 131 U/L (46-116) Creatine Kinase 140 U/L (26-192) Total Protein 6.7 g/dL (6.4-8.2) Albumin 2.1 g/dL (3.4-5.0) Albumin/Globulin Ratio 0.5 (1.0-1.7) Vancomycin Level Trough 6.4 mcg/mL (10.0-20.0) Vancomycin Last Dose Date 09/29/20 Vancomycin Last Dose Time 1800 Test 09/30/20 20:44 10/01/20 05:30 10/01/20 09:29 Glucose (Fingerstick) 145 mg/dL (70-99) 151 mg/dL (70-99) White Blood Count 12.6 x10^3/uL (4.0-11.0) Red Blood Count 3.73 x10^6/uL (3.50-5.40) Hemoglobin 11.9 g/dL (12.0-15.5) Hematocrit 35.0 % (36.0-47.0) Mean Corpuscular Volume 94 fL (79-100) Mean Corpuscular Hemoglobin 32 pg (25-35) Mean Corpuscular Hemoglobin Concent 34 g/dL (31-37) Red Cell Distribution Width 13.1 % (11.5-14.5) Platelet Count 209 x10^3/uL (140-400) Neutrophils (%) (Auto) 72 % (31-73) Lymphocytes (%) (Auto) 12 % (24-48) Monocytes (%) (Auto) 14 % (0-9) Eosinophils (%) (Auto) 2 % (0-3) Basophils (%) (Auto) 1 % (0-3) Neutrophils # (Auto) 9.0 x10^3/uL (1.8-7.7) Lymphocytes # (Auto) 1.5 x10^3/uL (1.0-4.8) Monocytes # (Auto) 1.7 x10^3/uL (0.0-1.1) Eosinophils # (Auto) 0.2 x10^3/uL (0.0-0.7) Basophils # (Auto) 0.1 x10^3/uL (0.0-0.2) Sodium Level 136 mmol/L (136-145) Potassium Level 3.5 mmol/L (3.5-5.1) Chloride Level 103 mmol/L (98-107) Carbon Dioxide Level 23 mmol/L (21-32) Anion Gap 10 (6-14) Blood Urea Nitrogen 18 mg/dL (7-20) Creatinine 0.7 mg/dL (0.6-1.0) Estimated GFR (Cockcroft-Gault) 93.2 BUN/Creatinine Ratio 26 (6-20) Glucose Level 167 mg/dL (70-99) Calcium Level 8.3 mg/dL (8.5-10.1) Total Bilirubin 1.5 mg/dL (0.2-1.0) Aspartate Amino Transf (AST/SGOT) 44 U/L (15-37) Alanine Aminotransferase (ALT/SGPT) 37 U/L (14-59) Alkaline Phosphatase 141 U/L (46-116) Total Protein 6.5 g/dL (6.4-8.2) Albumin 1.9 g/dL (3.4-5.0) Albumin/Globulin Ratio 0.4 (1.0-1.7) Vancomycin Level Trough 14.2 mcg/mL (10.0-20.0) Vancomycin Last Dose Date 09/30/20 Vancomycin Last Dose Time 2229 Laboratory Tests Test 09/30/20 10:58 09/30/20 18:33 09/30/20 20:44 10/01/20 05:30 Glucose (Fingerstick) 211 mg/dL (70-99) 199 mg/dL (70-99) 145 mg/dL (70-99) White Blood Count 12.6 x10^3/uL (4.0-11.0) Red Blood Count 3.73 x10^6/uL (3.50-5.40) Hemoglobin 11.9 g/dL (12.0-15.5) Hematocrit 35.0 % (36.0-47.0) Mean Corpuscular Volume 94 fL (79-100) Mean Corpuscular Hemoglobin 32 pg (25-35) Mean Corpuscular Hemoglobin Concent 34 g/dL (31-37) Red Cell Distribution Width 13.1 % (11.5-14.5) Platelet Count 209 x10^3/uL (140-400) Neutrophils (%) (Auto) 72 % (31-73) Lymphocytes (%) (Auto) 12 % (24-48) Monocytes (%) (Auto) 14 % (0-9) Eosinophils (%) (Auto) 2 % (0-3) Basophils (%) (Auto) 1 % (0-3) Neutrophils # (Auto) 9.0 x10^3/uL (1.8-7.7) Lymphocytes # (Auto) 1.5 x10^3/uL (1.0-4.8) Monocytes # (Auto) 1.7 x10^3/uL (0.0-1.1) Eosinophils # (Auto) 0.2 x10^3/uL (0.0-0.7) Basophils # (Auto) 0.1 x10^3/uL (0.0-0.2) Sodium Level 136 mmol/L (136-145) Potassium Level 3.5 mmol/L (3.5-5.1) Chloride Level 103 mmol/L (98-107) Carbon Dioxide Level 23 mmol/L (21-32) Anion Gap 10 (6-14) Blood Urea Nitrogen 18 mg/dL (7-20) Creatinine 0.7 mg/dL (0.6-1.0) Estimated GFR (Cockcroft-Gault) 93.2 BUN/Creatinine Ratio 26 (6-20) Glucose Level 167 mg/dL (70-99) Calcium Level 8.3 mg/dL (8.5-10.1) Total Bilirubin 1.5 mg/dL (0.2-1.0) Aspartate Amino Transf (AST/SGOT) 44 U/L (15-37) Alanine Aminotransferase (ALT/SGPT) 37 U/L (14-59) Alkaline Phosphatase 141 U/L (46-116) Total Protein 6.5 g/dL (6.4-8.2) Albumin 1.9 g/dL (3.4-5.0) Albumin/Globulin Ratio 0.4 (1.0-1.7) Vancomycin Level Trough 14.2 mcg/mL (10.0-20.0) Vancomycin Last Dose Date 09/30/20 Vancomycin Last Dose Time 2229 Test 10/01/20 09:29 Glucose (Fingerstick) 151 mg/dL (70-99) Medications Active Scripts Medications Dose Route/Sig Max Daily Dose Days Date Category Zofran (Ondansetron Hcl) 4 Mg Tablet 4 Mg IVP PRN Q6HRS PRN 09/29/20 Reported Humalog (Insulin Lispro) 100 Unit/1 Ml Cartridge 20 Unit SQ QIDACHS 09/29/20 Reported Lantus Solostar (Insulin Glargine,Hum.rec.anlog) 100 Unit/1 Ml Insuln.pen 20 Unit SQ QHS 09/29/20 Reported Impression . 1. Acute hypoxic respiratory failure secondary to right lung pneumonia, and small right-sided pleural effusion , likely parapneumonic. 2. Abnormal CT chest done on at [facility] with no evidence of central pulmonary emboli, but the contrast was poor and unable to see segmental and subsegmental pulmonary arteries. She has some asymmetric right septal thickening and also a right upper lobe bilobed opacity 1.4 cm in size. Now, her chest x-ray has shown increasing pleural effusion and pleural thickening and associated infiltrates. CT of right arm along with CT of the chest was reviewed dated 09/30. She has right lung infiltrate with effusion is small. 3. No significant tobacco history. 4. Right hand cellulitis. Infectious Disease is following. 5. Tachycardia, likely secondary to pain. Resolved. Plan . 1. Continue present oxygen, keep saturation 94 and above. 2. Continue broad-spectrum antibiotic per Infectious Disease. 3. CT chest reviewed 527. Fusion is a small. Does not need thoracentesis. 4. Follow-up chest x-ray in few days to see an improvement in right lung pneumonia. 5. Follow blood cultures. 05/10 has been positive for gram-positive cocci. 6. Venous Doppler of the upper extremity did not show any evidence of DVT. 7. Pain control. 8. She will need a follow-up CT chest in 4 to 6 weeks to follow-up on the right upper lobe bilobed mass to make sure it is not malignant. Discussed with RN. We will follow along with you. BELGICA PAZ MD October 01, 2020 10:02
--- NOTE | 2020-10-01 10:06 | PN ---
DATE: 10/01/2020 SUBJECTIVE: The patient is resting, slightly propped up in bed, continued to be somewhat tachypneic, although she is generally much better than yesterday. She is able now to move her right upper extremity. PHYSICAL EXAMINATION: GENERAL: When I examined her, she looked well and was clearly slightly tachypneic, but no pallor, jaundice, cyanosis or thyromegaly. No jugular venous distention, no lower limb edema. VITAL SIGNS: Heart rate was 102, blood pressure 116/68, temperature 98.7, respiratory rate 20, and oxygen saturation was 97% on 6 liters of oxygen. HEAD, EYES, EARS, NOSE AND THROAT: Normocephalic, atraumatic. NECK: Supple. HEART: Normal first and second heart sounds. No gallop or murmur. CHEST: Shows central trachea, equal bilateral expansion, air entry, vesicular breath sounds with dull percussion noted and absent breath sounds on the right side posteriorly. There is also bilateral basal crepitation. I could not appreciate any rhonchi. ABDOMEN: Distended, soft, nontender. NEUROLOGIC: She was awake, alert, responding appropriately. All cranial nerves intact. She moves extremities without difficulties, although her right arm continues to be swollen, she is now able to move it. The radial pulses are easily palpable. A CT scan showed no evidence of any drainable abscess. Her intake was 3689 and output was 950. LABORATORY DATA: Her lab work showed a white cell count 12,600, hemoglobin 12, hematocrit 35, MCV 94 and platelet count 209,000. Serum sodium was 136, potassium 3.5, chloride 103, bicarbonate 23, anion gap of 10, BUN 18 and creatinine 0.7. Estimated GFR was 93 mL per minute. Her glucose 167, calcium was 8.3. Total bilirubin, AST, ALT and alkaline phosphatase slightly elevated. Total protein 6.5, albumin was 1.9. ASSESSMENT: 1. Acute hypoxic respiratory failure. 2. Community-acquired pneumonia versus asymmetric pulmonary edema. 3. Markedly swollen right upper extremity with possible cellulitis. 4. An abscess in the left gluteal area. 5. Poorly controlled type 2 diabetes mellitus. 6. Hypertension. 7. Hyperlipidemia. 8. Fatty liver. 9. Depression. 10. Peripheral neuropathy. PLAN: To continue with IV antibiotic. Continue with pain management. Continue with oxygen supplementation. Continue with DVT prophylaxis in the form of SCDs. MELISSA/SINDY DR: Kali TID: [id number]
[2020-10-01] MEDS: LABETALOL HCL 100 MG TABLET. PO SCH ×2 (10:39→20:35)
--- NOTE | 2020-10-01 10:42 | NUR ---
Patient did not eat breakfast this morning. Requested that we hold insulin and give dose at noon
--- NOTE | 2020-10-01 16:11 | NUR ---
SS following up with discharge planning. SS reviewed pt chart and discussed with pt RN. Pt is currently requiring oxygen at six liters nasal canula. Pt on IV Vancomycin, IV Clindamycin, and IV Cefepime. Pt has no home oxygen. SS will continue to follow for discharge planning.
--- NOTE | 2020-10-01 16:14 | PDOC2 ---
Consult: Patient seen and evaluated in room 105 at 6pm 09/30- her primary reason of right arm swelling. She has been having swelling and pain in the arm for about 5 days. She was admitted to [facility] and then transferred to [facility] on Sunday. She denies any specific injury. She has had an ultrasound as well as an x-ray and CT which revealed soft tissue swelling but no discrete abscess. She currently also has significant pleural fluid. She is having on and off fevers. PAST MEDICAL/SURGICAL/FAMILY HISTORY/SOCIAL HISTORY/ AND ROS were reviewed on intake to include multiple system review. Copied to EHR. EXAM: -------- Well-nourished well-developed patient General: No acute distress. HEENT: Normocephalic. Respiratory: Respirations are non-labored. Cardiovascular: No edema. Abdomen: soft Neurologic: Alert. Psychiatric: Cooperative. Right upper extremity reveals moderate soft tissue swelling up to the mid upper arm. She is able to wiggle move her fingers. Her compartments are compressible although she has pain. She has limited range of motion of the elbow wrist and hand. There is no palpable abscess or mass. No fluctuant areas. She does have pitting edema. Sensation is intact distally. ASSESSMENT & PLAN: Moderate to severe right upper extremity cellulitis with pleural effusion and sepsis With regards to her right upper extremity I do not feel there is any operative intervention needed. She does need to continue IV antibiotics as prescribed. I will reevaluate her within 24 hours to see if there is any progression or regression of her symptoms. There does not appear to be any swelling in the knee compartments of the upper extremity to warrant any consideration for compartmental release. Overall prognosis is guarded secondary to her sepsis. KENDRA DILLON DO October 01, 2020 16:14
--- NOTE | 2020-10-01 16:17 | PDOC ---
Date of Service: DATE: 10/01/20 TIME: 1000 Progress Note: Patient seen today in reevaluation. She states her right upper extremity is improving. She is able to move the extremity. She is still slightly tachycardic. Right upper extremity reveals some mild regression of the swelling in her upper extremity. She is able to move her elbow and wrist without much difficulty. Neurocirculatory status is intact. There is still considerable soft tissue swelling but no fluctuant areas are noticed. ASSESSMENT & PLAN: Right upper extremity cellulitis improving Sepsis At this point I recommended continued nonoperative management of her cellulitis. Continue with IV antibiotics as prescribed. If there is any regression in her progress I will be happy to reevaluate but I do not see any operative intervention to be needed at this time. Thank you. Do not hesitate to call me if there are any need for reconsideration Justifications for Admission Other Justification KENDRA DILLON DO October 01, 2020 16:17
--- NOTE | 2020-10-01 16:57 | NUR ---
Patient not given insulin. BS was 90. Patient states she does not want to eat dinner.
--- NOTE | 2020-10-01 18:58 | CARD ---
MR#: [id number] Date of Study: 10/01/2020 Ordering Physician: SAMM FOFANA, Referring Physician: SAMM FOFANA, Tech: Magdalena Lin, [facility] APPROVED REPORT EXAM: Two-dimensional and M-mode echocardiogram with Doppler and color Doppler. Other Information Quality : AverageHR: 112bpm Technically limited study due to patient sitting up INDICATION Pericardial effusion 2D DIMENSIONS RVDd2.9 (2.9-3.5cm)Left Atrium(2D)3.6 (1.6-4.0cm) IVSd0.8 (0.7-1.1cm)Aortic Root(2D)3.3 (2.0-3.7cm) LVDd4.8 (3.9-5.9cm)LVOT Diameter2.0 (1.8-2.4cm) PWd0.8 (0.7-1.1cm)LVDs2.8 (2.5-4.0cm) FS (%) 42.0 %SV80.2 ml Aortic Valve AoV Peak Edison.148.3cm/sAoV VTI19.8cm AO Peak GR.8.8mmHgLVOT VTI 15.21cm AO Mean GR.5mmHg Mitral Valve MV E Aakavcja78.0cm/sMV DECEL ATNU021vp MV A Mxvfdfjc15.4cm/sE/A Ratio1.1 TDI Lateral E' P. V11.01cm/sMedial E' P. V13.97cm/s E/Lateral E'8.3E/Medial E'6.5 Tricuspid Valve TR P. Qyeavtks377vy/sRAP JCRFRBLU3hpWp TR Peak Gr.22sjQrZCPU05zxPi LEFT VENTRICLE The left ventricle is normal size. There is normal left ventricular wall thickness. The left ventricu lar systolic function is normal and the ejection fraction is within normal range. The Ejection Fracti on is 55-60%. Septal motion consistent with conduction abnormality. The left ventricular diastolic fu nction and filling is normal for age. RIGHT VENTRICLE The right ventricle is normal size. There is normal right ventricular wall thickness. The right ventr icular systolic function is normal. ATRIA The left atrium size is normal. The right atrium size is normal. The interatrial septum is intact wit h no evidence for an atrial septal defect or patent foramen ovale as noted on 2-D or Doppler imaging. AORTIC VALVE The aortic valve is normal in structure and function. Doppler and Color Flow revealed no significant aortic regurgitation. There is no significant aortic valvular stenosis. Calculated aortic valve area is 2.42 cm2 with maximum pressure gradient of 9 mmHg and mean pressure gradient of 5 mmHg. MITRAL VALVE The mitral valve is normal in structure and function. There is no evidence of mitral valve prolapse. There is no mitral valve stenosis. Doppler and Color-flow revealed trace mitral regurgitation. TRICUSPID VALVE The tricuspid valve is normal in structure and function. Doppler and Color Flow revealed trace tricus pid regurgitation with an estimated PAP of 32 mmHg. There is no tricuspid valve stenosis. PULMONIC VALVE The pulmonic valve is not well visualized. Doppler and Color Flow revealed trace pulmonic valvular re gurgitation. GREAT VESSELS The aortic root is normal in size. The IVC was not visualized. PERICARDIAL EFFUSION There is a trace to small pericardial effusion with no evidence of hemodynamic significance. Critical Notification Critical Value: No <Conclusion> The left ventricle is normal size. The left ventricular systolic function is normal and the ejection fraction is within normal range. The Ejection Fraction is 55-60%. Doppler and Color Flow revealed no significant aortic regurgitation. There is no significant aortic valvular stenosis. Doppler and Color-flow revealed trace mitral regurgitation. Doppler and Color Flow revealed trace tricuspid regurgitation with an estimated PAP of 32 mmHg. There is a trace to small pericardial effusion with no evidence of hemodynamic significance. Signed by : Bubba Montoya MD Electronically Approved : 10/01/2020 18:58:41
[2020-10-01] MEDS: LORazepam 0.5 MG TABLET PO PRN (19:39)
[2020-10-01] MEDS: GABAPENTIN 300 MG CAPSULE. PO SCH (20:35)
[2020-10-01] MEDS: DULoxetine HCL 30 MG CAPSULE.DR PO SCH (20:38)
[2020-10-01] MEDS: INSULIN GLARGINE SYRINGE. SQ SCH (20:41)
[2020-10-02] VITALS (24 sets, daily range): BP systolic 105–176; BP diastolic 64–102
[2020-10-02] MEDS: HYDROmorphone 2 MG/ML VIAL IVP PRN ×2 (01:53→06:49)
[2020-10-02] MEDS: MORPHINE SULFATE 4 MG/ML VIAL. IV PRN (04:41)
[2020-10-02] MEDS: LORazepam 0.5 MG TABLET PO PRN ×2 (04:41→21:06)
[2020-10-02] MEDS: CEFEPIME HCL IV Push 2 GM VIAL. IVP SCH ×3 (05:43→21:41)
[2020-10-02] MEDS: CLINDAMYCIN 600MG PREMIX 50 ML IV SCH (05:43)
[2020-10-02] MEDS: VANCOMYCIN 1.5 GM in IV NORMAL SALINE 500ML BAG 500 ML IV SCH (06:12)
[2020-10-02] MEDS: INSULIN LISPRO 300 UNITS/3 ML VIAL. SQ SCH ×4 (07:30→21:10)
[2020-10-02] MEDS: POTASSIUM CHLORIDE 20 MEQ TABLET.ER. PO SCH ×3 (07:53→17:17)
[2020-10-02] MEDS: LACTOBACILLUS RHAMNOSUS GG 1 CAPSULE. PO SCH ×2 (07:53→21:06)
[2020-10-02] MEDS: LABETALOL HCL 100 MG TABLET. PO SCH ×2 (07:54→21:06)
[2020-10-02] MEDS ORDERED: FUROSEMIDE 40 MG/4 ML VIAL. IVP ONE (08:00)
--- NOTE | 2020-10-02 08:02 | PN ---
DATE: 10/02/2020 SUBJECTIVE: The patient is sitting, slightly propped up in bed, continued to be tachypneic, tachycardic. OBJECTIVE: GENERAL: On examining her, she was pale, but no jaundice, cyanosis or thyromegaly. No jugular venous distention, mild bilateral lower limb edema. VITAL SIGNS: Heart rate was 126, blood pressure is 162/102, temperature was 98.2, respiratory rate was 26 and oxygen saturation was 94% on 6 liters of oxygen. HEAD, EYES, EARS, NOSE AND THROAT: Normocephalic, atraumatic. NECK: Supple. HEART: Showed normal first and second heart sounds, no gallop, murmur. CHEST: Shows central trachea, equal, bilateral chest expansion, air entry, vesicular breath sounds with crepitation mostly on the right side posteriorly with dull percussion, not so on the right side posteriorly. ABDOMEN: Distended, soft, nontender, no guarding or rigidity. No organomegaly. All hernial orifice intact. Bowel sounds normal. NEUROLOGIC: She was awake, alert, responding appropriately. All her cranial nerves are intact. She moves without difficulty. Her right upper extremity has continued to be swollen, but less tender. The right radial artery pulsation is easily palpable. Her intake over the last 24 hours was 4500. Output was 1350. LABORATORY DATA: Her lab work is still pending at the time of this dictation. As of yesterday, her white cell count was 12,600, hemoglobin 12, hematocrit 35, MCV 94 and platelet count 209,000. Serum sodium was 136, potassium 3.5, chloride 103, bicarbonate 23, anion gap of 10, BUN 18, creatinine 0.7. Estimated GFR was 93 mL per minute, glucose 167, calcium was 8.3. Total bilirubin, AST, ALT, alkaline phosphatase slightly elevated. Total protein 6.5, albumin was 1.9. Her vancomycin trough level was 14.2. ASSESSMENT: 1. Acute hypoxic respiratory failure. 2. Community-acquired pneumonia versus symmetric pulmonary edema. 3. Markedly swollen right upper extremity with possible cellulitis. 4. Abscess in the left gluteal area. 5. Poorly controlled type 2 diabetes mellitus. 6. Hypertension. 7. Hyperlipidemia. 8. fatty liver. 9. Depression and anxiety. 10. Peripheral neuropathy. PLAN: To continue with IV antibiotic. Continue pain management. Continue with DVT prophylaxis in the form of SCDs. Continue with oxygen supplementation. Repeat all her lab work including CBC, CMP, BMP, blood gases, chest x-ray. I will increase her labetalol to 200 mg twice a day and start her on some IV Lasix. CRISTHIAN DR: Kali TID: [id number]
--- NOTE | 2020-10-02 08:11 | PDOC ---
PULMONARY PROGRESS NOTES DATE: 10/02/20 TIME: 08:06 Subjective on 02 6 lpm, confused on morphin diladid Still has right arm swelling. Vitals Vital Signs Date Time Temp Pulse Resp B/P (MAP) Pulse Ox O2 Delivery O2 Flow Rate FiO2 10/02/20 07:54 29 94 Nasal Cannula 6.0 10/02/20 07:54 126 162/102 10/02/20 05:00 98.2 98.2 Comments ros unable to obtain confused General: No acute distress, Confused HEENT: Other (nc at perrl nose clear opened her mouth ? spastic neck no lad no thyromegaly) Lungs: Other (decreased right) Cardiovascular: S1, S2, Other (tachy) Abdomen: Soft, Non-tender, Other (obese) Extremities: Other (1+edema lower, right arm swelling) Skin: Warm Labs Laboratory Tests Test 09/30/20 10:58 09/30/20 18:33 09/30/20 20:44 10/01/20 05:30 Glucose (Fingerstick) 211 mg/dL (70-99) 199 mg/dL (70-99) 145 mg/dL (70-99) White Blood Count 12.6 x10^3/uL (4.0-11.0) Red Blood Count 3.73 x10^6/uL (3.50-5.40) Hemoglobin 11.9 g/dL (12.0-15.5) Hematocrit 35.0 % (36.0-47.0) Mean Corpuscular Volume 94 fL (79-100) Mean Corpuscular Hemoglobin 32 pg (25-35) Mean Corpuscular Hemoglobin Concent 34 g/dL (31-37) Red Cell Distribution Width 13.1 % (11.5-14.5) Platelet Count 209 x10^3/uL (140-400) Neutrophils (%) (Auto) 72 % (31-73) Lymphocytes (%) (Auto) 12 % (24-48) Monocytes (%) (Auto) 14 % (0-9) Eosinophils (%) (Auto) 2 % (0-3) Basophils (%) (Auto) 1 % (0-3) Neutrophils # (Auto) 9.0 x10^3/uL (1.8-7.7) Lymphocytes # (Auto) 1.5 x10^3/uL (1.0-4.8) Monocytes # (Auto) 1.7 x10^3/uL (0.0-1.1) Eosinophils # (Auto) 0.2 x10^3/uL (0.0-0.7) Basophils # (Auto) 0.1 x10^3/uL (0.0-0.2) Sodium Level 136 mmol/L (136-145) Potassium Level 3.5 mmol/L (3.5-5.1) Chloride Level 103 mmol/L (98-107) Carbon Dioxide Level 23 mmol/L (21-32) Anion Gap 10 (6-14) Blood Urea Nitrogen 18 mg/dL (7-20) Creatinine 0.7 mg/dL (0.6-1.0) Estimated GFR (Cockcroft-Gault) 93.2 BUN/Creatinine Ratio 26 (6-20) Glucose Level 167 mg/dL (70-99) Calcium Level 8.3 mg/dL (8.5-10.1) Total Bilirubin 1.5 mg/dL (0.2-1.0) Aspartate Amino Transf (AST/SGOT) 44 U/L (15-37) Alanine Aminotransferase (ALT/SGPT) 37 U/L (14-59) Alkaline Phosphatase 141 U/L (46-116) Total Protein 6.5 g/dL (6.4-8.2) Albumin 1.9 g/dL (3.4-5.0) Albumin/Globulin Ratio 0.4 (1.0-1.7) Vancomycin Level Trough 14.2 mcg/mL (10.0-20.0) Vancomycin Last Dose Date 09/30/20 Vancomycin Last Dose Time 2229 Test 10/01/20 09:29 10/01/20 12:29 10/01/20 16:55 10/01/20 20:40 Glucose (Fingerstick) 151 mg/dL (70-99) 168 mg/dL (70-99) 90 mg/dL (70-99) 117 mg/dL (70-99) Laboratory Tests Test 10/01/20 09:29 10/01/20 12:29 10/01/20 16:55 10/01/20 20:40 Glucose (Fingerstick) 151 mg/dL (70-99) 168 mg/dL (70-99) 90 mg/dL (70-99) 117 mg/dL (70-99) Medications Active Scripts Medications Dose Route/Sig Max Daily Dose Days Date Category Zofran (Ondansetron Hcl) 4 Mg Tablet 4 Mg IVP PRN Q6HRS PRN 09/29/20 Reported Humalog (Insulin Lispro) 100 Unit/1 Ml Cartridge 20 Unit SQ QIDACHS 09/29/20 Reported Lantus Solostar (Insulin Glargine,Hum.rec.anlog) 100 Unit/1 Ml Insuln.pen 20 Unit SQ QHS 09/29/20 Reported Comments cxr 10/02 r infilt consolidation ? worse Impression . 1. Acute hypoxic respiratory failure secondary to right lung pneumonia, and sma ll right-sided pleural effusion , likely parapneumonic. 2. Abnormal CT chest done on at [facility] with no evidence of central pulmonary emboli, but the contrast was poor and unable to see segmental and subsegmental pulmonary arteries. She has some asymmetric right septal thickening and also a right upper lobe bilobed opacity 1.4 cm in size. Now, her chest x-ray has shown increasing pleural effusion and pleural thickening and associated infiltrates. CT of right arm along with CT of the chest was reviewed dated 09/30. She has right lung infiltrate with effusion is small. 3. No significant tobacco history. 4. Right hand cellulitis. Infectious Disease is following. 5. staph areous bactremia Plan . 10/02 02 titration decreased to 4 lpm stat cxr, r infilt consolidation ? worse BD atrovent only tachycardic avoid over sedation abg will review fu bcx cont abx per id, DCed IV vancomycin, clindamycin.,Started Daptomycin,flagyl,doxycycline fu ct in 4-6 weeks Venous Doppler of the upper extremity did not show any evidence of DVT. monitor in icu discussed w rn id 1. Continue present oxygen, keep saturation 94 and above. 2. Continue broad-spectrum antibiotic per Infectious Disease. 3. CT chest reviewed 527. Fusion is a small. Does not need thoracentesis. 4. Follow-up chest x-ray in few days to see an improvement in right lung pneumonia. 5. Follow blood cultures. 05/10 has been positive for gram-positive cocci. 6. Venous Doppler of the upper extremity did not show any evidence of DVT. 7. Pain control. 8. She will need a follow-up CT chest in 4 to 6 weeks to follow-up on the right upper lobe bilobed mass to make sure it is not malignant. Discussed with RN. We will follow along with you. ISAAC COURTNEY MD October 02, 2020 08:11
--- NOTE | 2020-10-02 08:21 | PDOC ---
Infectious Disease Note Subjective: Subjective Patient little agitated she wants to get out of bed Says right upper extremity swelling ,discomfort and redness has improved Some shortness of breath No fevers, nausea, vomiting, diarrhea Tolerating p.o. intake well No new concerns per discussion with RN Vital Signs: Vital Signs Vital Signs Date Time Temp Pulse Resp B/P (MAP) Pulse Ox O2 Delivery O2 Flow Rate FiO2 10/02/20 07:54 29 94 Nasal Cannula 6.0 10/02/20 07:54 126 162/102 10/02/20 05:00 98.2 98.2 Physical Exam: PHYSICAL EXAM GENERAL: Alert, oriented x 3, lying in bed comfortably, in no acute distress. Appears tired, Able to stand up with support HEENT: Normocephalic, atraumatic. Anicteric. No thrush. Oral mucosa moist, on O2 by nasal cannula. NECK: Supple, no JVD, no lymphadenopathy. Right neck central line clean. LUNGS: Poor inspiratory effort, no wheezing. Decreased breath sounds at the bases. HEART: S1, S2, No murmurs. ABDOMEN: Soft, nontender, nondistended, no rebound or guarding. EXTREMITIES: Right upper extremity swelling extending from hand to shoulder, mild redness, diffuse erythema and tenderness though improving, Radial pulse palpable. Decreased range of motion due to extreme swelling. No wrist, elbow or shoulder Effusion noted DERMATOLOGIC: No other open skin wounds noted. No generalized rash except for above. Dry scab present over the left cheek. No abscess, no fluctuance. NEUROLOGIC: Alert, oriented x 3, grossly nonfocal. PSYCHIATRIC: Cooperative, calm, somewhat flat affect. Medications: Inpatient Meds: Medications reviewed. Labs: Lab Laboratory Tests Test 10/01/20 09:29 10/01/20 12:29 10/01/20 16:55 10/01/20 20:40 Glucose (Fingerstick) 151 mg/dL (70-99) 168 mg/dL (70-99) 90 mg/dL (70-99) 117 mg/dL (70-99) Micro RUN DATE: 10/01/20 [facility] LAB *LIVE* PAGE 1 RUN TIME: 08 Specimen Inquiry PATIENT: JONATAN SON ACCT: [id number] LOC: [address] [place] [address] U: [id number] AGE/SX: 40/F ROOM: 120 RE09/28/[address]: SAMM FOFANA MD : [id number] BED: A DIS: 09/29/20 STATUS: DIS IN TLOC: SPEC #: [id number] ABDOULAYE: 09/28/20 STATUS: RES REQ #: [id number] RECD: 09/28/20 [facility] DR: ALVARO GALVIN APRN SOURCE: BLOOD ENTR: 09/30/[address] [facility] [address]: MELIZA ANDREW MD SPDC: ALVARO NUNEZ DO ORDERED: BLOOD CULT-LC ----- ------- Procedure Result BLOOD CULTURE LC Preliminary Preliminary GRAM POSITIVE COCCI FINAL ID= [STAPHYLOCOCCUS AUREUS] STAPHYLOCOCCUS AUREUS Unless otherwise specified, Testing Performed by: [facility] [address] [place] [address] For Inquires, the Physician may contact the Microbiology department at [phone] END OF REPORT Objective: Assessment: 1. Sepsis 2. Staph aureus Bacteremia, 1/ bottles at [facility], source left buttock skin lesion 3. Leukocytosis. 4. Severe right upper extremity swelling and pain. CTA negative 5. Right upper extremity cellulitis. Improved 6. Diabetic ketoacidosis. 7. Abnormal LFTs. 8. Protein calorie malnutrition. 9. Neck pain with underlying chronic neck pain and back pain. 10. High CK at outside hospital. They are within normal limits 11. Left buttock skin lesion, improving. No evidence of abscess. 12. History of allergies to penicillin has tolerated ceftriaxone well at outside hospital 13. Pneumonia, right pleural effusion Plan: Plan of Care 1. DC IV vancomycin, clindamycin.,Start Daptomycin,flagyl,doxycycline, monitor CPK F/U Labs from this am 2. Cont Cefepime 3. Follow-up repeat blood cultures here 4. Follow up GPC from blood cultures at [facility]. 5. Followup CTA. 6. CT right upper extremity.revealed no fluid collection 7. Monitor neurologic status closely. 8. Monitor closely for compartment syndrome 9. Elevate right upper extremity. 10. Continue supportive care. 11. Continue local care. 12. Maintain aspiration precaution. Discussed with CECIL EDWARDS MD October 02, 2020 08:21
[2020-10-02 08:22] LABS: BASO # 0.1 x10^3/uL (0.0-0.2); BASO % 1 % (0-3); EOS # 0.2 x10^3/uL (0.0-0.7); EOS % 1 % (0-3); HEMATOCRIT 37.3 % (36.0-47.0); HEMOGLOBIN 12.6 g/dL (12.0-15.5); LYMPH # 1.5 x10^3/uL (1.0-4.8); LYMPH % 8 % (24-48); MEAN CORPUSCULAR HEMOGLOBIN 32 pg (25-35); MEAN CORPUSCULAR HGB CONC 34 g/dL (31-37); MEAN CORPUSCULAR VOLUME 93 fL (79-100); MONO # 1.8 x10^3/uL (0.0-1.1); MONO % 9 % (0-9); NEUT % 82 % (31-73); PLATELET COUNT 286 x10^3/uL (140-400); RED BLOOD COUNT 4.01 x10^6/uL (3.50-5.40); RED CELL DISTRIBUTION WIDTH 13.2 % (11.5-14.5); WHITE BLOOD COUNT 19.6 x10^3/uL (4.0-11.0)
--- NOTE | 2020-10-02 08:31 | RAD ---
XR CHEST 1V CLINICAL INDICATIONS: Worsening shortness of breath. COMPARISON: September 29, 2020. Findings: Moderate size right-sided pleural effusion and associated compressive atelectasis or consol idative right lung base infiltrate is unchanged. Developing infiltrate is seen within the medial left lung base. No left-sided pleural effusion is seen. No pneumothorax is evident. Heart size and medias tinum and pulmonary vasculature are and unchanged. Position of right IJ central line is unchanged. IMPRESSION: Stable moderate size right-sided pleural effusion and associated compressive atelectasis or consolidative right lung base infiltrate. Developing medial left lung base infiltrate. Electronically signed by: Jose Rafael Ramachandran MD (10/02/2020 8:29 AM) [id number]
[2020-10-02 09:02] LABS: BILIRUBIN,URINE NEGATIVE (NEG); CLARITY,URINE CLEAR; COLOR,URINE YELLOW; NITRITE,URINE NEGATIVE (NEG); PH,URINE 5.5 (<5.0-8.0); PROTEIN,URINE NEGATIVE (NEG-TRACE)
[2020-10-02 09:10] LABS: CALCIUM 7.5 mg/dL (8.5-10.1); CREATININE 0.6 mg/dL (0.6-1.0); GFR 111.3; POTASSIUM 3.6 mmol/L (3.5-5.1)
[2020-10-02 09:15] LABS: ALBUMIN/GLOBULIN RATIO 0.5 (1.0-1.7); TOTAL BILIRUBIN 1.6 mg/dL (0.2-1.0)
[2020-10-02 09:22] LABS: BASE EXCESS ABG -6 mmol/L (-3-3); HCO3 ABG 19 mmol/L (21-28); PCO2 ABG 39 mmHg (35-46); PO2 ABG 79 mmHg (75-108); SAT O2 ABG 95 % (92-99)
[2020-10-02] MEDS: DAPTOmycin (GENERIC) IVPB 490 MG in IV NORMAL SALINE 50ML 50 ML IV SCH (09:31)
[2020-10-02] MEDS ORDERED: IPRATROPIUM BROMIDE 0.5 MG/2.5 ML NEBU. NEB ONE (10:30)
[2020-10-02 10:47] LABS: BACTERIA,URINE 0 /HPF (0-FEW); RBC,URINE 0 /HPF (0-2); WBC,URINE 0 /HPF (0-4)
[2020-10-02] MEDS: DOXYCYCLINE HYCLATE 100 MG TABLET PO SCH ×2 (11:23→21:06)
[2020-10-02] MEDS: metroNIDAZOLE 500 MG TABLET PO SCH ×3 (11:23→21:41)
[2020-10-02] MEDS: IV NORMAL SALINE 1000ML BAG 1,000 ML IV SCH (11:53)
[2020-10-02] MEDS: oxyCODONE/APAP 5/325 1 TAB TABLET PO PRN ×3 (11:57→19:58)
--- NOTE | 2020-10-02 14:03 | NUR ---
Non administered 1400 Q8hrs PO Flagyl per pharmacy. Gave 1st dose at 1130. Will pass on to production supervisor off shift to give 2200 dose at 2100 in order to get back on schedule.
[2020-10-02] MEDS: NYSTATIN TOPICAL POWDER 15GM BOTTLE. TP SCH (15:56)
[2020-10-02] MEDS: IPRATROPIUM BROMIDE 0.5 MG/2.5 ML NEBU. NEB SCH ×2 (16:24→20:08)
[2020-10-02] MEDS: AMINO AC 3%/ELECTROLYTE/GLYCER 1,000 ML IV SCH (18:02)
[2020-10-02] MEDS: GABAPENTIN 300 MG CAPSULE. PO SCH (21:06)
[2020-10-02] MEDS: DULoxetine HCL 30 MG CAPSULE.DR PO SCH (21:08)
[2020-10-02] MEDS: INSULIN GLARGINE SYRINGE. SQ SCH (21:09)
[2020-10-03] VITALS (12 sets, daily range): BP systolic 108–147; BP diastolic 60–88
--- NOTE | 2020-10-03 01:14 | NUR ---
After receiving pain medication and anxiety medication per pt request, pt again slurring words and unable to breathe through mouth on request. At this time, pt remains belligerent, and continually trying to get OOB and pull off O2. With O2 on, sat is 92-95, when removed, pt holds breath and bears down, causing sat to drop to 70%. Pt does not open eyes while conversing with anyone who comes into room. is now at bedside and keeping O2 on with great difficulty. Pt insists that she needs to get up to use bathroom. When reminded she has a catheter, pt states she knows, but then tries to get oob siting the same reason. Catheter draining well. Pt exhibiting poor STM, inability to keep eyes open during short conversations, forgetfulness, and poor judgement. is at bedside to assure pt compliance with treatment. Will hold all narcotics until morning rounds by Dr Willis.
[2020-10-03 05:21] LABS: HEMATOCRIT 34.2 % (36.0-47.0); HEMOGLOBIN 11.6 g/dL (12.0-15.5); RED BLOOD COUNT 3.7 x10^6/uL (3.50-5.40); RED CELL DISTRIBUTION WIDTH 13.1 % (11.5-14.5); WHITE BLOOD COUNT 19.7 x10^3/uL (4.0-11.0)
[2020-10-03 05:30] LABS: CALCIUM 8.7 mg/dL (8.5-10.1); CREATININE 0.6 mg/dL (0.6-1.0); GFR 111.3; POTASSIUM 3.2 mmol/L (3.5-5.1)
[2020-10-03] MEDS: CEFEPIME HCL IV Push 2 GM VIAL. IVP SCH ×3 (05:38→21:01)
[2020-10-03] MEDS: metroNIDAZOLE 500 MG TABLET PO SCH ×3 (05:38→21:00)
[2020-10-03] MEDS: ACETAMINOPHEN 325 MG TABLET. PO PRN (05:38)
[2020-10-03] MEDS: AMINO AC 3%/ELECTROLYTE/GLYCER 1,000 ML IV SCH ×2 (05:39→18:58)
--- NOTE | 2020-10-03 06:27 | NUR ---
Pt remains drowsy, though less confused and less slurring of words noted. She began coughing frequently at 0400 and was able to expectorate a small amount of thick phlegm. O2 removed at 0615. O2 sat now 92-93% on room air. has gone home.
[2020-10-03] MEDS: IPRATROPIUM BROMIDE 0.5 MG/2.5 ML NEBU. NEB SCH ×4 (07:28→20:26)
[2020-10-03] MEDS: INSULIN LISPRO 300 UNITS/3 ML VIAL. SQ SCH ×4 (07:30→21:02)
--- NOTE | 2020-10-03 07:52 | PDOC ---
Infectious Disease Note Subjective: Subjective Patient says feels a little better Says right upper extremity swelling ,discomfort and redness has improved Shortness of breath is improved Down to 3 L from 6 L No fevers, nausea, vomiting, diarrhea,abdo pain Vital Signs: Vital Signs Vital Signs Date Time Temp Pulse Resp B/P (MAP) Pulse Ox O2 Delivery O2 Flow Rate FiO2 10/03/20 07:00 109 25 130/81 (97) 90 Room Air 10/03/20 05:00 2.0 10/03/20 04:00 99.4 99.4 Physical Exam: PHYSICAL EXAM GENERAL: Alert, oriented x 3, lying in bed comfortably, in no acute distress. Appears tired, Able to stand up with support HEENT: Normocephalic, atraumatic. Anicteric. No thrush. Oral mucosa moist, on O2 by nasal cannula. NECK: Supple, no JVD, no lymphadenopathy. Right neck central line clean. LUNGS: Poor inspiratory effort, no wheezing. Decreased breath sounds at the bases. HEART: S1, S2, No murmurs. ABDOMEN: Soft, nontender, nondistended, no rebound or guarding. EXTREMITIES: Right upper extremity swelling extending from hand to shoulder, mild redness, diffuse erythema and tenderness though improving, Radial pulse palpable. Decreased range of motion due to extreme swelling. No wrist, elbow or shoulder Effusion noted DERMATOLOGIC: No other open skin wounds noted. No generalized rash except for above. Dry scab present over the left cheek. No abscess, no fluctuance. NEUROLOGIC: Alert, oriented x 3, grossly nonfocal. PSYCHIATRIC: Cooperative, calm, somewhat flat affect. Medications: Inpatient Meds: Medications reviewed. Labs: Lab Laboratory Tests Test 10/02/20 08:05 10/02/20 08:40 10/02/20 09:15 10/02/20 11:48 White Blood Count 19.6 x10^3/uL (4.0-11.0) Red Blood Count 4.01 x10^6/uL (3.50-5.40) Hemoglobin 12.6 g/dL (12.0-15.5) Hematocrit 37.3 % (36.0-47.0) Mean Corpuscular Volume 93 fL (79-100) Mean Corpuscular Hemoglobin 32 pg (25-35) Mean Corpuscular Hemoglobin Concent 34 g/dL (31-37) Red Cell Distribution Width 13.2 % (11.5-14.5) Platelet Count 286 x10^3/uL (140-400) Neutrophils (%) (Auto) 82 % (31-73) Lymphocytes (%) (Auto) 8 % (24-48) Monocytes (%) (Auto) 9 % (0-9) Eosinophils (%) (Auto) 1 % (0-3) Basophils (%) (Auto) 1 % (0-3) Neutrophils # (Auto) 16.0 x10^3/uL (1.8-7.7) Lymphocytes # (Auto) 1.5 x10^3/uL (1.0-4.8) Monocytes # (Auto) 1.8 x10^3/uL (0.0-1.1) Eosinophils # (Auto) 0.2 x10^3/uL (0.0-0.7) Basophils # (Auto) 0.1 x10^3/uL (0.0-0.2) Sodium Level 139 mmol/L (136-145) Potassium Level 3.6 mmol/L (3.5-5.1) Chloride Level 103 mmol/L (98-107) Carbon Dioxide Level 22 mmol/L (21-32) Anion Gap 14 (6-14) Blood Urea Nitrogen 14 mg/dL (7-20) Creatinine 0.6 mg/dL (0.6-1.0) Estimated GFR (Cockcroft-Gault) 111.3 BUN/Creatinine Ratio 23 (6-20) Glucose Level 110 mg/dL (70-99) Calcium Level 7.5 mg/dL (8.5-10.1) Total Bilirubin 1.6 mg/dL (0.2-1.0) Aspartate Amino Transf (AST/SGOT) 56 U/L (15-37) Alanine Aminotransferase (ALT/SGPT) 41 U/L (14-59) Alkaline Phosphatase 228 U/L (46-116) MV-Lgl-P-Type Natriuretic Peptide 698 pg/mL (0-124) Total Protein 6.0 g/dL (6.4-8.2) Albumin 2.0 g/dL (3.4-5.0) Albumin/Globulin Ratio 0.5 (1.0-1.7) Urine Collection Type Unknown Urine Color Yellow Urine Clarity Clear Urine pH 5.5 (<5.0-8.0) Urine Specific [place] 1.010 (1.000-1.030) Urine Protein Negative mg/dL (NEG-TRACE) Urine Glucose (UA) Negative mg/dL (NEG) Urine Ketones (Stick) 40 mg/dL (NEG) Urine Blood Negative (NEG) Urine Nitrite Negative (NEG) Urine Bilirubin Negative (NEG) Urine Urobilinogen Dipstick 1.0 mg/dL (0.2 mg/dL) Urine Leukocyte Esterase Negative (NEG) Urine RBC 0 /HPF (0-2) Urine WBC 0 /HPF (0-4) Urine Bacteria 0 /HPF (0-FEW) O2 Saturation 95 % (92-99) Arterial Blood pH 7.31 (7.35-7.45) Arterial Blood pCO2 at Patient Temp 39 mmHg (35-46) Arterial Blood pO2 at Patient Temp 79 mmHg (75-108) Arterial Blood HCO3 19 mmol/L (21-28) Arterial Blood Base Excess -6 mmol/L (-3-3) FiO2 10 lpm nc Glucose (Fingerstick) 108 mg/dL (70-99) Test 10/02/20 16:02 10/02/20 20:53 10/03/20 05:00 Glucose (Fingerstick) 190 mg/dL (70-99) 183 mg/dL (70-99) White Blood Count 19.7 x10^3/uL (4.0-11.0) Red Blood Count 3.70 x10^6/uL (3.50-5.40) Hemoglobin 11.6 g/dL (12.0-15.5) Hematocrit 34.2 % (36.0-47.0) Mean Corpuscular Volume 92 fL (79-100) Mean Corpuscular Hemoglobin 31 pg (25-35) Mean Corpuscular Hemoglobin Concent 34 g/dL (31-37) Red Cell Distribution Width 13.1 % (11.5-14.5) Platelet Count 248 x10^3/uL (140-400) Sodium Level 140 mmol/L (136-145) Potassium Level 3.2 mmol/L (3.5-5.1) Chloride Level 105 mmol/L (98-107) Carbon Dioxide Level 24 mmol/L (21-32) Anion Gap 11 (6-14) Blood Urea Nitrogen 15 mg/dL (7-20) Creatinine 0.6 mg/dL (0.6-1.0) Estimated GFR (Cockcroft-Gault) 111.3 Glucose Level 144 mg/dL (70-99) Calcium Level 8.7 mg/dL (8.5-10.1) Micro - RUN DATE: 10/02/20 [facility] LAB *LIVE* PAGE 1 RUN TIME: 929 Specimen Inquiry PATIENT: JONATAN SON ACCT: [id number] LOC: [address] [place] [address] U: [id number] AGE/SX: 40/F ROOM: [facility] RE09/28/[address]: SAMM FOFANA MD : [id number] BED: A DIS: 09/29/20 STATUS: DIS IN TLOC: SPEC #: [id number] ABDOULAYE: 09/28/20-1813 STATUS: PHILL RENadine #: [id number] RECD: 09/28/20-[address]: ALVARO GALVIN APRN SOURCE: BLOOD ENTR: 09/30/[address] [facility] [address]: MELIZA ANDREW MD [facility]: ALVARO NUNEZ DO ORDERED: BLOOD CULT-LC Procedure Result BLOOD CULTURE LC Final Final GRAM POSITIVE COCCI FINAL ID= [STAPHYLOCOCCUS AUREUS (MRSA)] STAPHYLOCOCCUS AUREUS (MRSA) ANTIMICROBIAL SUSCEPTIBILITY Final Comment POS IVELISSE TYPE 38 STAPHYLOCOCCUS AUREUS (MRSA) ANTIBIOTIC RESULT INTERPRETATION AZITHROMYCIN >4 R CLINDAMYCIN <=0.25 S CEFOXITIN SCREEN >4 POS CIPROFLOXACIN <=1 S CEFTAROLINE <=0.5 S DAPTOMYCIN 1 S ERYTHROMYCIN >4 R GENTAMICIN <=4 S INDUCIBLE CLINDAMYCIN <=4/0.5 NEG LINEZOLID 2 S LEVOFLOXACIN <=1 S OXACILLIN >2 R PENICILLIN >2 R* RIFAMPIN <=1 S TRIMETHOPRIM/SULFAMETHOXAZOLE <=0.5/9.5 S TETRACYCLINE <=4 S VANCOMYCIN 1 S Unless otherwise specified, Testing Performed by: [address] [address] For Inquires, the Physician may contact the Microbiology department at [phone] <Conclusion> The left ventricle is normal size. The left ventricular systolic function is normal and the ejection fraction is within normal range. The Ejection Fraction is 55-60%. Doppler and Color Flow revealed no significant aortic regurgitation. There is no significant aortic valvular stenosis. Doppler and Color-flow revealed trace mitral regurgitation. Doppler and Color Flow revealed trace tricuspid regurgitation with an estimated PAP of 32 mmHg. There is a trace to small pericardial effusion with no evidence of hemodynamic significance. Objective: Assessment: 1. Sepsis 2. MRSA Bacteremia, 1/ bottles at [facility], POA source left buttock skin lesion 3. Leukocytosis and Bandemia. 4. Severe right upper extremity swelling and pain. CTA negative for abscess Improving though slowly 5. Right upper extremity cellulitis. Improving 6. Diabetic ketoacidosis. 7. Abnormal LFTs. 8. Protein calorie malnutrition. 9. Neck pain with underlying chronic neck pain and back pain. 10. High CK at outside hospital. They are within normal limits 11. Left buttock skin lesion, improving. No evidence of abscess. 12. History of allergies to penicillin has tolerated ceftriaxone well at outside hospital 13. Pneumonia, right pleural effusion,?Parapneumonic effusion 14. Mild CHF 2D echo noted Plan: Plan of Care 1. Continue Daptomycin,Cefepime,flagyl,doxycycline, 3. Follow-up repeat blood cultures here negative so far 4. Follow up GPC from blood cultures at [facility]. 5. CT Chest, may need thoracocentesis 6. CT right upper extremity.revealed no fluid collection 7. Elevate right upper extremity. 8. Continue local care. 9.. Maintain aspiration precautions. 10. Check c diff if has diarrhea Discussed with CECIL EDWARDS MD October 03, 2020 07:52
[2020-10-03] MEDS ORDERED: FUROSEMIDE 40 MG/4 ML VIAL. IVP ONE (08:00)
[2020-10-03] MEDS: NYSTATIN TOPICAL POWDER 15GM BOTTLE. TP SCH ×2 (08:34→21:01)
[2020-10-03] MEDS: LABETALOL HCL 100 MG TABLET. PO SCH ×2 (08:34→21:00)
[2020-10-03] MEDS: POTASSIUM CHLORIDE 20 MEQ TABLET.ER. PO SCH ×3 (08:34→16:53)
[2020-10-03] MEDS: DOXYCYCLINE HYCLATE 100 MG TABLET PO SCH ×2 (08:34→21:00)
[2020-10-03] MEDS: LACTOBACILLUS RHAMNOSUS GG 1 CAPSULE. PO SCH ×2 (08:43→21:00)
--- NOTE | 2020-10-03 08:47 | PN ---
DATE: 10/03/2020 SUBJECTIVE: The patient is resting, slightly propped up in bed, continued to be slightly tachypneic, although seemed to be much better than before. She is not interacting, apparently had received Ativan and oxycodone yesterday. We did treat her with IV Lasix and oxygen requirement came down, in fact she was requiring 6 liters of oxygen and now she is only on 2 liters. PHYSICAL EXAMINATION: GENERAL: When I examined her, she was somewhat pale, but not jaundiced or cyanosed. No lymphadenopathy, no thyromegaly, no jugular venous distention, no lower limb edema. VITAL SIGNS: Her heart rate was 115, blood pressure was 133/85, temperature was 99.4, respiratory rate was 22 and oxygen saturation was 92% on 2 liters of oxygen. HEAD, EYES, EARS, NOSE AND THROAT: Normocephalic, atraumatic. NECK: Supple. HEART: Normal first and second heart sounds. No gallop, rub or murmur. CHEST: Clear to auscultation anteriorly, dull percussion note and absent breath sounds and crepitation mostly on the right side posteriorly. ABDOMEN: Nondistended, soft, nontender. NEUROLOGIC: She is awake, alert, responding appropriately. She has generalized anasarca with swelling in her right upper extremity more than her left upper extremity. Her intake over the last 24 hours was 3700, output was 1650. LABORATORY DATA: As of this morning, her white cell count was up to 19,700, hemoglobin 11.6, hematocrit 34, MCV 92 and platelet count 248,000. Her serum sodium was 140, potassium 3.2, chloride 105, bicarbonate 24, anion gap of 11, BUN 15, creatinine 0.6. Estimated GFR was 111. Her glucose was 144, calcium was 8.7. ASSESSMENT: 1. Acute hypoxic respiratory failure, improving. Her oxygen requirement is down from 6 liters to 2 liters. 2. Community-acquired pneumonia versus asymmetric pulmonary edema. 3. Right side pleural effusion. 4. Markedly swollen right upper extremity and possible cellulitis; however, venous Doppler ultrasound was negative for deep vein thrombosis for abscess in the left gluteal area. 5. Poorly controlled type 2 diabetes mellitus. 6. Hypertension. 7. Hyperlipidemia. 8. Fatty liver. 9. Depression and anxiety. 10. Peripheral neuropathy. 11. Hypokalemia. PLAN: 1. To continue with IV antibiotic as recommended by the infectious disease specialist. 2. Continue with pain management. She is now on oxycodone. 3. Continue with DVT prophylaxis in the form of SCDs. 4. Continue with oxygen supplementation. Continue with nutritional support in the form of TPN. PRITI DR: Kali TID: [id number]
--- NOTE | 2020-10-03 09:22 | PDOC ---
PULMONARY PROGRESS NOTES DATE: 10/03/20 TIME: 09:21 Subjective on 02 2 lpm, alert sob better, r arm pain better Vitals Vital Signs Date Time Temp Pulse Resp B/P (MAP) Pulse Ox O2 Delivery O2 Flow Rate FiO2 10/03/20 08:34 106 140/88 10/03/20 08:00 98.7 28 96 Room Air 98.7 10/03/20 05:00 2.0 ROS: No Nausea, No Chest Pain General: Alert, No acute distress HEENT: Other (nc at perrl nose clear opened her mouth ? spastic neck no lad no thyromegaly) Lungs: Other (dimished bs on right ) Cardiovascular: S1, S2, Other (tachy) Abdomen: Soft, Non-tender, Other (obese) Neuro Exam: Alert Extremities: Other (1+edema lower, right arm swelling) Skin: Warm Labs Laboratory Tests Test 10/01/20 09:29 10/01/20 12:29 10/01/20 16:55 10/01/20 20:40 Glucose (Fingerstick) 151 mg/dL (70-99) 168 mg/dL (70-99) 90 mg/dL (70-99) 117 mg/dL (70-99) Test 10/02/20 07:33 10/02/20 08:05 10/02/20 08:40 10/02/20 09:15 Creatine Kinase 76 U/L (26-192) White Blood Count 19.6 x10^3/uL (4.0-11.0) Red Blood Count 4.01 x10^6/uL (3.50-5.40) Hemoglobin 12.6 g/dL (12.0-15.5) Hematocrit 37.3 % (36.0-47.0) Mean Corpuscular Volume 93 fL (79-100) Mean Corpuscular Hemoglobin 32 pg (25-35) Mean Corpuscular Hemoglobin Concent 34 g/dL (31-37) Red Cell Distribution Width 13.2 % (11.5-14.5) Platelet Count 286 x10^3/uL (140-400) Neutrophils (%) (Auto) 82 % (31-73) Lymphocytes (%) (Auto) 8 % (24-48) Monocytes (%) (Auto) 9 % (0-9) Eosinophils (%) (Auto) 1 % (0-3) Basophils (%) (Auto) 1 % (0-3) Neutrophils # (Auto) 16.0 x10^3/uL (1.8-7.7) Lymphocytes # (Auto) 1.5 x10^3/uL (1.0-4.8) Monocytes # (Auto) 1.8 x10^3/uL (0.0-1.1) Eosinophils # (Auto) 0.2 x10^3/uL (0.0-0.7) Basophils # (Auto) 0.1 x10^3/uL (0.0-0.2) Sodium Level 139 mmol/L (136-145) Potassium Level 3.6 mmol/L (3.5-5.1) Chloride Level 103 mmol/L (98-107) Carbon Dioxide Level 22 mmol/L (21-32) Anion Gap 14 (6-14) Blood Urea Nitrogen 14 mg/dL (7-20) Creatinine 0.6 mg/dL (0.6-1.0) Estimated GFR (Cockcroft-Gault) 111.3 BUN/Creatinine Ratio 23 (6-20) Glucose Level 110 mg/dL (70-99) Calcium Level 7.5 mg/dL (8.5-10.1) Total Bilirubin 1.6 mg/dL (0.2-1.0) Aspartate Amino Transf (AST/SGOT) 56 U/L (15-37) Alanine Aminotransferase (ALT/SGPT) 41 U/L (14-59) Alkaline Phosphatase 228 U/L (46-116) YW-Qge-X-Type Natriuretic Peptide 698 pg/mL (0-124) Total Protein 6.0 g/dL (6.4-8.2) Albumin 2.0 g/dL (3.4-5.0) Albumin/Globulin Ratio 0.5 (1.0-1.7) Urine Collection Type Unknown Urine Color Yellow Urine Clarity Clear Urine pH 5.5 (<5.0-8.0) Urine Specific [place] 1.010 (1.000-1.030) Urine Protein Negative mg/dL (NEG-TRACE) Urine Glucose (UA) Negative mg/dL (NEG) Urine Ketones (Stick) 40 mg/dL (NEG) Urine Blood Negative (NEG) Urine Nitrite Negative (NEG) Urine Bilirubin Negative (NEG) Urine Urobilinogen Dipstick 1.0 mg/dL (0.2 mg/dL) Urine Leukocyte Esterase Negative (NEG) Urine RBC 0 /HPF (0-2) Urine WBC 0 /HPF (0-4) Urine Bacteria 0 /HPF (0-FEW) O2 Saturation 95 % (92-99) Arterial Blood pH 7.31 (7.35-7.45) Arterial Blood pCO2 at Patient Temp 39 mmHg (35-46) Arterial Blood pO2 at Patient Temp 79 mmHg (75-108) Arterial Blood HCO3 19 mmol/L (21-28) Arterial Blood Base Excess -6 mmol/L (-3-3) FiO2 10 lpm nc Test 10/02/20 11:48 10/02/20 16:02 10/02/20 20:53 10/03/20 05:00 Glucose (Fingerstick) 108 mg/dL (70-99) 190 mg/dL (70-99) 183 mg/dL (70-99) White Blood Count 19.7 x10^3/uL (4.0-11.0) Red Blood Count 3.70 x10^6/uL (3.50-5.40) Hemoglobin 11.6 g/dL (12.0-15.5) Hematocrit 34.2 % (36.0-47.0) Mean Corpuscular Volume 92 fL (79-100) Mean Corpuscular Hemoglobin 31 pg (25-35) Mean Corpuscular Hemoglobin Concent 34 g/dL (31-37) Red Cell Distribution Width 13.1 % (11.5-14.5) Platelet Count 248 x10^3/uL (140-400) Erythrocyte Sedimentation Rate 125 (0-25) Sodium Level 140 mmol/L (136-145) Potassium Level 3.2 mmol/L (3.5-5.1) Chloride Level 105 mmol/L (98-107) Carbon Dioxide Level 24 mmol/L (21-32) Anion Gap 11 (6-14) Blood Urea Nitrogen 15 mg/dL (7-20) Creatinine 0.6 mg/dL (0.6-1.0) Estimated GFR (Cockcroft-Gault) 111.3 Glucose Level 144 mg/dL (70-99) Calcium Level 8.7 mg/dL (8.5-10.1) C-Reactive Protein, Quantitative 197.9 mg/L (0-3.3) Laboratory Tests Test 10/02/20 11:48 10/02/20 16:02 10/02/20 20:53 10/03/20 05:00 Glucose (Fingerstick) 108 mg/dL (70-99) 190 mg/dL (70-99) 183 mg/dL (70-99) White Blood Count 19.7 x10^3/uL (4.0-11.0) Red Blood Count 3.70 x10^6/uL (3.50-5.40) Hemoglobin 11.6 g/dL (12.0-15.5) Hematocrit 34.2 % (36.0-47.0) Mean Corpuscular Volume 92 fL (79-100) Mean Corpuscular Hemoglobin 31 pg (25-35) Mean Corpuscular Hemoglobin Concent 34 g/dL (31-37) Red Cell Distribution Width 13.1 % (11.5-14.5) Platelet Count 248 x10^3/uL (140-400) Erythrocyte Sedimentation Rate 125 (0-25) Sodium Level 140 mmol/L (136-145) Potassium Level 3.2 mmol/L (3.5-5.1) Chloride Level 105 mmol/L (98-107) Carbon Dioxide Level 24 mmol/L (21-32) Anion Gap 11 (6-14) Blood Urea Nitrogen 15 mg/dL (7-20) Creatinine 0.6 mg/dL (0.6-1.0) Estimated GFR (Cockcroft-Gault) 111.3 Glucose Level 144 mg/dL (70-99) Calcium Level 8.7 mg/dL (8.5-10.1) C-Reactive Protein, Quantitative 197.9 mg/L (0-3.3) Medications Active Scripts Medications Dose Route/Sig Max Daily Dose Days Date Category Zofran (Ondansetron Hcl) 4 Mg Tablet 4 Mg IVP PRN Q6HRS PRN 09/29/20 Reported Humalog (Insulin Lispro) 100 Unit/1 Ml Cartridge 20 Unit SQ QIDACHS 09/29/20 Reported Lantus Solostar (Insulin Glargine,Hum.rec.anlog) 100 Unit/1 Ml Insuln.pen 20 Unit SQ QHS 09/29/20 Reported Comments cxr 10/02 r infilt consolidation ? worse Impression . 1. Acute hypoxic respiratory failure secondary to right lung pneumonia, and small right-sided pleural effusion , likely parapneumonic. 2. Abnormal CT chest done on at [facility] with no evidence of central pulmonary emboli, but the contrast was poor and unable to see segmental and subsegmental pulmonary arteries. She has some asymmetric right septal thickening and also a right upper lobe bilobed opacity 1.4 cm in size. Now, her chest x-ray has shown increasing pleural effusion and pleural thickening and associated infiltrates. CT of right arm along with CT of the chest was reviewed dated 09/30. She has right lung infiltrate with effusion is small. 3. No significant tobacco history. 4. Right u ext cellulitis. Infectious Disease is following. 5. MRSA bacteremia [facility] blood cx 05/10 Plan . 10/03 01 titration to keep sat 92% reviewed cxr, r infilt consolidation ? worse cxr in am BD atrovent only tachycardic avoid over sedation abg reviewed fu bcx mrsa cont abx per id, Daptomycin,flagyl,doxycycline fu ct in 4-6 weeks Venous Doppler of the upper extremity did not show any evidence of DVT. monitor in icu discussed w rn id 10/02 02 titration decreased to 4 lpm stat cxr, r infilt consolidation ? worse BD atrovent only tachycardic avoid over sedation abg will review fu bcx cont abx per id, DCed IV vancomycin, clindamycin.,Started Daptomycin,flagyl,doxycycline fu ct in 4-6 weeks Venous Doppler of the upper extremity did not show any evidence of DVT. monitor in icu discussed w rn id 1. Continue present oxygen, keep saturation 94 and above. 2. Continue broad-spectrum antibiotic per Infectious Disease. 3. CT chest reviewed 527. Fusion is a small. Does not need thoracentesis. 4. Follow-up chest x-ray in few days to see an improvement in right lung pneumonia. 5. Follow blood cultures. 05/10 has been positive for gram-positive cocci. 6. Venous Doppler of the upper extremity did not show any evidence of DVT. 7. Pain control. 8. She will need a follow-up CT chest in 4 to 6 weeks to follow-up on the right upper lobe bilobed mass to make sure it is not malignant. Discussed with RN. We will follow along with you. ISAAC COURTNEY MD October 03, 2020 09:22
[2020-10-03] MEDS: DAPTOmycin (GENERIC) IVPB 490 MG in IV NORMAL SALINE 50ML 50 ML IV SCH (10:37)
[2020-10-03] MEDS: oxyCODONE/APAP 5/325 1 TAB TABLET PO PRN (16:52)
[2020-10-03] MEDS: DULoxetine HCL 30 MG CAPSULE.DR PO SCH (21:00)
[2020-10-03] MEDS: GABAPENTIN 300 MG CAPSULE. PO SCH (21:00)
[2020-10-03] MEDS: INSULIN GLARGINE SYRINGE. SQ SCH (21:01)
[2020-10-04] VITALS (7 sets, daily range): BP systolic 98–137; BP diastolic 53–80
[2020-10-04] MEDS: ACETAMINOPHEN 325 MG TABLET. PO PRN (02:23)
[2020-10-04] MEDS: CEFEPIME HCL IV Push 2 GM VIAL. IVP SCH ×3 (06:05→20:55)
[2020-10-04] MEDS: metroNIDAZOLE 500 MG TABLET PO SCH ×3 (06:05→20:55)
[2020-10-04 06:35] LABS: ALBUMIN 1.4 g/dL (3.4-5.0); ALBUMIN/GLOBULIN RATIO 0.3 (1.0-1.7); CALCIUM 8.2 mg/dL (8.5-10.1); CREATININE 0.6 mg/dL (0.6-1.0); GFR 111.3; POTASSIUM 3.6 mmol/L (3.5-5.1); TOTAL PROTEIN 5.8 g/dL (6.4-8.2)
[2020-10-04 06:37] LABS: BASO # 0.1 x10^3/uL (0.0-0.2); BASO % 0 % (0-3); EOS # 0.1 x10^3/uL (0.0-0.7); EOS % 1 % (0-3); HEMATOCRIT 34.1 % (36.0-47.0); HEMOGLOBIN 11.4 g/dL (12.0-15.5); LYMPH # 1.9 x10^3/uL (1.0-4.8); LYMPH % 10 % (24-48); MEAN CORPUSCULAR HEMOGLOBIN 31 pg (25-35); MEAN CORPUSCULAR HGB CONC 34 g/dL (31-37); MEAN CORPUSCULAR VOLUME 93 fL (79-100); MONO # 1.8 x10^3/uL (0.0-1.1); MONO % 9 % (0-9); NEUT # 16.1 x10^3/uL (1.8-7.7); NEUT % 81 % (31-73); PLATELET COUNT 282 x10^3/uL (140-400); RED BLOOD COUNT 3.66 x10^6/uL (3.50-5.40); RED CELL DISTRIBUTION WIDTH 13.4 % (11.5-14.5)
--- NOTE | 2020-10-04 07:34 | RAD ---
XR CHEST 1V INDICATION: Reason: fu infilt 105 / Spl. Instructions: / History: . COMPARISON STUDY: 10/04/2020. FINDINGS: Life Support Devices: Stable right IJ central venous catheter. Lungs: Normal lung volume. Stable right lung opacities and left basilar opacity. Pleura: Stable small right pleural effusion. Heart and Mediastinum: Stable cardiomediastinal silhouette and great vessels. Bones and Soft Tissues: Stable regional skeleton and soft tissues. IMPRESSION: 1. Stable right lung opacities and left basilar opacities. 2. Stable small right pleural effusion. Electronically signed by: Richard Moore MD (10/04/2020 7:32 AM) [id number]
[2020-10-04] MEDS: IPRATROPIUM BROMIDE 0.5 MG/2.5 ML NEBU. NEB SCH ×4 (07:51→19:55)
--- NOTE | 2020-10-04 07:56 | PDOC ---
Infectious Disease Note Subjective: Subjective Patient says feels better Says right upper extremity swelling ,discomfort and redness has improved Shortness of breath is improved Down to 2 l O2 by nc No fevers, nausea, vomiting,abdo pain Has diarrhea Awaiting CT chest and right upper extremity later today Vital Signs: Vital Signs Vital Signs Date Time Temp Pulse Resp B/P (MAP) Pulse Ox O2 Delivery O2 Flow Rate FiO2 10/04/20 07:52 96 Nasal Cannula 3.0 10/04/20 04:00 98.8 102 24 137/74 (95) 98.8 Physical Exam: PHYSICAL EXAM GENERAL: Alert, oriented x 3, sitting in chair comfortably, in no acute distress. Looks better HEENT: Normocephalic, atraumatic. Anicteric. No thrush. Oral mucosa dry on O2 by nasal cannula. NECK: Supple, no JVD, no lymphadenopathy. Right neck central line clean. LUNGS: Poor inspiratory effort, no wheezing. Decreased breath sounds at the bases. HEART: S1, S2, No murmurs. ABDOMEN: Soft, nontender, nondistended, no rebound or guarding. EXTREMITIES: Right upper extremity swelling extending from hand to shoulder, mild redness, diffuse erythema and tenderness though improving, Radial pulse palpable. Decreased range of motion due to extreme swelling. No wrist, elbow or shoulder Effusion noted DERMATOLOGIC: No other open skin wounds noted. No generalized rash except for above. Dry scab present over the left cheek and right forearm. No abscess, no fluctuance. NEUROLOGIC: Alert, oriented x 3, grossly nonfocal. PSYCHIATRIC: Cooperative, calm, somewhat flat affect. Medications: Inpatient Meds: Medications reviewed. Labs: Lab Laboratory Tests Test 10/03/20 11:39 10/03/20 17:03 10/03/20 20:59 10/04/20 06:00 Glucose (Fingerstick) 222 mg/dL (70-99) 266 mg/dL (70-99) 253 mg/dL (70-99) White Blood Count 20.0 x10^3/uL (4.0-11.0) Red Blood Count 3.66 x10^6/uL (3.50-5.40) Hemoglobin 11.4 g/dL (12.0-15.5) Hematocrit 34.1 % (36.0-47.0) Mean Corpuscular Volume 93 fL (79-100) Mean Corpuscular Hemoglobin 31 pg (25-35) Mean Corpuscular Hemoglobin Concent 34 g/dL (31-37) Red Cell Distribution Width 13.4 % (11.5-14.5) Platelet Count 282 x10^3/uL (140-400) Neutrophils (%) (Auto) 81 % (31-73) Lymphocytes (%) (Auto) 10 % (24-48) Monocytes (%) (Auto) 9 % (0-9) Eosinophils (%) (Auto) 1 % (0-3) Basophils (%) (Auto) 0 % (0-3) Neutrophils # (Auto) 16.1 x10^3/uL (1.8-7.7) Lymphocytes # (Auto) 1.9 x10^3/uL (1.0-4.8) Monocytes # (Auto) 1.8 x10^3/uL (0.0-1.1) Eosinophils # (Auto) 0.1 x10^3/uL (0.0-0.7) Basophils # (Auto) 0.1 x10^3/uL (0.0-0.2) Sodium Level 139 mmol/L (136-145) Potassium Level 3.6 mmol/L (3.5-5.1) Chloride Level 104 mmol/L (98-107) Carbon Dioxide Level 27 mmol/L (21-32) Anion Gap 8 (6-14) Blood Urea Nitrogen 18 mg/dL (7-20) Creatinine 0.6 mg/dL (0.6-1.0) Estimated GFR (Cockcroft-Gault) 111.3 BUN/Creatinine Ratio 30 (6-20) Glucose Level 268 mg/dL (70-99) Calcium Level 8.2 mg/dL (8.5-10.1) Total Bilirubin 1.0 mg/dL (0.2-1.0) Aspartate Amino Transf (AST/SGOT) 29 U/L (15-37) Alanine Aminotransferase (ALT/SGPT) 23 U/L (14-59) Alkaline Phosphatase 196 U/L (46-116) Total Protein 5.8 g/dL (6.4-8.2) Albumin 1.4 g/dL (3.4-5.0) Albumin/Globulin Ratio 0.3 (1.0-1.7) Micro --------- --- RUN DATE: 10/02/20 [facility] LAB *LIVE* PAGE 1 RUN TIME: 929 Specimen Inquiry PATIENT: JONATAN SON ACCT: [id number] LOC: [address] [place] [address] U: [id number] AGE/SX: 40/F ROOM: 120 RE09/28/[address]: ASMM FOFANA MD : [id number] BED: A DIS: 09/29/20 STATUS: DIS IN TLOC: SPEC #: [id number] ABDOULAYE: 09/28/20-1813 STATUS: COMP REQ #: [id number] RECD: 09/28/20-[address]: ALVARO GALVIN APRN SOURCE: BLOOD ENTR: 09/30/20-[address] [facility] [address]: MELIZA ANDREW MD SPDESC: ALVARO NUNEZ DO ORDERED: BLOOD CULT-LC Procedure Result BLOOD CULTURE LC Final Final GRAM POSITIVE COCCI FINAL ID= [STAPHYLOCOCCUS AUREUS (MRSA)] STAPHYLOCOCCUS AUREUS (MRSA) ANTIMICROBIAL SUSCEPTIBILITY Final Comment POS IVELISSE TYPE 38 STAPHYLOCOCCUS AUREUS (MRSA) ANTIBIOTIC RESULT INTERPRETATION AZITHROMYCIN >4 R CLINDAMYCIN <=0.25 S CEFOXITIN SCREEN >4 POS CIPROFLOXACIN <=1 S CEFTAROLINE <=0.5 S DAPTOMYCIN 1 S ERYTHROMYCIN >4 R GENTAMICIN <=4 S INDUCIBLE CLINDAMYCIN <=4/0.5 NEG LINEZOLID 2 S LEVOFLOXACIN <=1 S OXACILLIN >2 R PENICILLIN >2 R* RIFAMPIN <=1 S TRIMETHOPRIM/SULFAMETHOXAZOLE <=0.5/9.5 S TETRACYCLINE <=4 S VANCOMYCIN 1 S Unless otherwise specified, Testing Performed by: [address] [address] For Inquires, the Physician may contact the Microbiology department at [phone] <Conclusion> The left ventricle is normal size. The left ventricular systolic function is normal and the ejection fraction is within normal range. The Ejection Fraction is 55-60%. Doppler and Color Flow revealed no significant aortic regurgitation. There is no significant aortic valvular stenosis. Doppler and Color-flow revealed trace mitral regurgitation. Doppler and Color Flow revealed trace tricuspid regurgitation with an estimated PAP of 32 mmHg. There is a trace to small pericardial effusion with no evidence of hemodynamic significance. Objective: Assessment: 1. Sepsis 2. MRSA Bacteremia, 1/4 bottles at [facility], POA source left buttock skin lesion Repeat BC neg here ECHO noted 3. Leukocytosis and Bandemia. 4. Severe right upper extremity swelling and pain. CTA negative for abscess Improving though slowly 5. Right upper extremity cellulitis. Improving 6. Diabetic ketoacidosis. 7. Abnormal LFTs. 8. Protein calorie malnutrition. 9. Neck pain with underlying chronic neck pain and back pain. 10. High CK at outside hospital. They are within normal limits 11. Left buttock skin lesion, improving. No evidence of abscess. 12. History of allergies to penicillin has tolerated ceftriaxone well at outside hospital 13. Pneumonia, right pleural effusion,?Parapneumonic effusion 14. Mild CHF 2D echo noted Plan: Plan of Care 1. Continue Daptomycin,Cefepime,flagyl,doxycycline, Was on IV Vanc and clindamycin 3. Follow-up repeat blood cultures here negative so far 4. Follow up CT Chest, 5. F/U RUE CT with contrast 6. may need thoracocentesis 7. Elevate right upper extremity. 8. Continue local care. 9.. Maintain aspiration precautions. 10. Check c diff Discussed with CECIL EDWARDS MD October 04, 2020 07:56
[2020-10-04] MEDS: POTASSIUM CHLORIDE 20 MEQ TABLET.ER. PO SCH ×3 (08:53→17:30)
[2020-10-04] MEDS: AMINO AC 3%/ELECTROLYTE/GLYCER 1,000 ML IV SCH (08:53)
[2020-10-04] MEDS: LACTOBACILLUS RHAMNOSUS GG 1 CAPSULE. PO SCH ×2 (08:53→20:48)
[2020-10-04] MEDS: DOXYCYCLINE HYCLATE 100 MG TABLET PO SCH ×2 (08:53→20:48)
[2020-10-04] MEDS: LABETALOL HCL 100 MG TABLET. PO SCH ×2 (08:53→20:48)
[2020-10-04] MEDS: NYSTATIN TOPICAL POWDER 15GM BOTTLE. TP SCH ×2 (08:54→20:48)
[2020-10-04] MEDS: INSULIN LISPRO 300 UNITS/3 ML VIAL. SQ SCH ×4 (08:57→20:52)
--- NOTE | 2020-10-04 09:28 | PDOC ---
PULMONARY PROGRESS NOTES DATE: 10/04/20 TIME: 09:27 Subjective Patient sitting up in a chair, very sleepy, not more short of air, feels better. Vitals Vital Signs Date Time Temp Pulse Resp B/P (MAP) Pulse Ox O2 Delivery O2 Flow Rate FiO2 10/04/20 08:53 103 133/80 10/04/20 08:00 98.4 26 95 Nasal Cannula 2.0 98.4 ROS: No Nausea, No Chest Pain, No Abdominal Pain, No Increase Cough General: Alert, No acute distress Lungs: Other (dimished bs on right ) Cardiovascular: S1, S2, Other (tachy) Abdomen: Soft, Non-tender, Other (obese) Neuro Exam: Alert Extremities: Other (1+edema lower, right arm swelling) Skin: Warm Labs Laboratory Tests Test 10/02/20 11:48 10/02/20 16:02 10/02/20 20:53 10/03/20 05:00 Glucose (Fingerstick) 108 mg/dL (70-99) 190 mg/dL (70-99) 183 mg/dL (70-99) White Blood Count 19.7 x10^3/uL (4.0-11.0) Red Blood Count 3.70 x10^6/uL (3.50-5.40) Hemoglobin 11.6 g/dL (12.0-15.5) Hematocrit 34.2 % (36.0-47.0) Mean Corpuscular Volume 92 fL (79-100) Mean Corpuscular Hemoglobin 31 pg (25-35) Mean Corpuscular Hemoglobin Concent 34 g/dL (31-37) Red Cell Distribution Width 13.1 % (11.5-14.5) Platelet Count 248 x10^3/uL (140-400) Erythrocyte Sedimentation Rate 125 (0-25) Sodium Level 140 mmol/L (136-145) Potassium Level 3.2 mmol/L (3.5-5.1) Chloride Level 105 mmol/L (98-107) Carbon Dioxide Level 24 mmol/L (21-32) Anion Gap 11 (6-14) Blood Urea Nitrogen 15 mg/dL (7-20) Creatinine 0.6 mg/dL (0.6-1.0) Estimated GFR (Cockcroft-Gault) 111.3 Glucose Level 144 mg/dL (70-99) Calcium Level 8.7 mg/dL (8.5-10.1) C-Reactive Protein, Quantitative 197.9 mg/L (0-3.3) Test 10/03/20 11:39 10/03/20 17:03 10/03/20 20:59 10/04/20 06:00 Glucose (Fingerstick) 222 mg/dL (70-99) 266 mg/dL (70-99) 253 mg/dL (70-99) White Blood Count 20.0 x10^3/uL (4.0-11.0) Red Blood Count 3.66 x10^6/uL (3.50-5.40) Hemoglobin 11.4 g/dL (12.0-15.5) Hematocrit 34.1 % (36.0-47.0) Mean Corpuscular Volume 93 fL (79-100) Mean Corpuscular Hemoglobin 31 pg (25-35) Mean Corpuscular Hemoglobin Concent 34 g/dL (31-37) Red Cell Distribution Width 13.4 % (11.5-14.5) Platelet Count 282 x10^3/uL (140-400) Neutrophils (%) (Auto) 81 % (31-73) Lymphocytes (%) (Auto) 10 % (24-48) Monocytes (%) (Auto) 9 % (0-9) Eosinophils (%) (Auto) 1 % (0-3) Basophils (%) (Auto) 0 % (0-3) Neutrophils # (Auto) 16.1 x10^3/uL (1.8-7.7) Lymphocytes # (Auto) 1.9 x10^3/uL (1.0-4.8) Monocytes # (Auto) 1.8 x10^3/uL (0.0-1.1) Eosinophils # (Auto) 0.1 x10^3/uL (0.0-0.7) Basophils # (Auto) 0.1 x10^3/uL (0.0-0.2) Sodium Level 139 mmol/L (136-145) Potassium Level 3.6 mmol/L (3.5-5.1) Chloride Level 104 mmol/L (98-107) Carbon Dioxide Level 27 mmol/L (21-32) Anion Gap 8 (6-14) Blood Urea Nitrogen 18 mg/dL (7-20) Creatinine 0.6 mg/dL (0.6-1.0) Estimated GFR (Cockcroft-Gault) 111.3 BUN/Creatinine Ratio 30 (6-20) Glucose Level 268 mg/dL (70-99) Calcium Level 8.2 mg/dL (8.5-10.1) Total Bilirubin 1.0 mg/dL (0.2-1.0) Aspartate Amino Transf (AST/SGOT) 29 U/L (15-37) Alanine Aminotransferase (ALT/SGPT) 23 U/L (14-59) Alkaline Phosphatase 196 U/L (46-116) Total Protein 5.8 g/dL (6.4-8.2) Albumin 1.4 g/dL (3.4-5.0) Albumin/Globulin Ratio 0.3 (1.0-1.7) Laboratory Tests Test 10/03/20 11:39 10/03/20 17:03 10/03/20 20:59 10/04/20 06:00 Glucose (Fingerstick) 222 mg/dL (70-99) 266 mg/dL (70-99) 253 mg/dL (70-99) White Blood Count 20.0 x10^3/uL (4.0-11.0) Red Blood Count 3.66 x10^6/uL (3.50-5.40) Hemoglobin 11.4 g/dL (12.0-15.5) Hematocrit 34.1 % (36.0-47.0) Mean Corpuscular Volume 93 fL (79-100) Mean Corpuscular Hemoglobin 31 pg (25-35) Mean Corpuscular Hemoglobin Concent 34 g/dL (31-37) Red Cell Distribution Width 13.4 % (11.5-14.5) Platelet Count 282 x10^3/uL (140-400) Neutrophils (%) (Auto) 81 % (31-73) Lymphocytes (%) (Auto) 10 % (24-48) Monocytes (%) (Auto) 9 % (0-9) Eosinophils (%) (Auto) 1 % (0-3) Basophils (%) (Auto) 0 % (0-3) Neutrophils # (Auto) 16.1 x10^3/uL (1.8-7.7) Lymphocytes # (Auto) 1.9 x10^3/uL (1.0-4.8) Monocytes # (Auto) 1.8 x10^3/uL (0.0-1.1) Eosinophils # (Auto) 0.1 x10^3/uL (0.0-0.7) Basophils # (Auto) 0.1 x10^3/uL (0.0-0.2) Sodium Level 139 mmol/L (136-145) Potassium Level 3.6 mmol/L (3.5-5.1) Chloride Level 104 mmol/L (98-107) Carbon Dioxide Level 27 mmol/L (21-32) Anion Gap 8 (6-14) Blood Urea Nitrogen 18 mg/dL (7-20) Creatinine 0.6 mg/dL (0.6-1.0) Estimated GFR (Cockcroft-Gault) 111.3 BUN/Creatinine Ratio 30 (6-20) Glucose Level 268 mg/dL (70-99) Calcium Level 8.2 mg/dL (8.5-10.1) Total Bilirubin 1.0 mg/dL (0.2-1.0) Aspartate Amino Transf (AST/SGOT) 29 U/L (15-37) Alanine Aminotransferase (ALT/SGPT) 23 U/L (14-59) Alkaline Phosphatase 196 U/L (46-116) Total Protein 5.8 g/dL (6.4-8.2) Albumin 1.4 g/dL (3.4-5.0) Albumin/Globulin Ratio 0.3 (1.0-1.7) Medications Active Scripts Medications Dose Route/Sig Max Daily Dose Days Date Category Zofran (Ondansetron Hcl) 4 Mg Tablet 4 Mg IVP PRN Q6HRS PRN 09/29/20 Reported Humalog (Insulin Lispro) 100 Unit/1 Ml Cartridge 20 Unit SQ QIDACHS 09/29/20 Reported Lantus Solostar (Insulin Glargine,Hum.rec.anlog) 100 Unit/1 Ml Insuln.pen 20 Unit SQ QHS 09/29/20 Reported Comments Chest x-ray reviewed, right infiltrate no change Impression . 1. Acute hypoxic respiratory failure secondary to right lung pneumonia, and small right-sided pleural effusion , likely parapneumonic. 2. Abnormal CT chest done on at [facility] with no evidence of central pulmonary emboli, but the contrast was poor and unable to see segmental and subsegmental pulmonary arteries. She has some asymmetric right septal thickening and also a right upper lobe bilobed opacity 1.4 cm in size. Now, her chest x-ray has shown increasing pleural effusion and pleural thickening and associated infiltrates. CT of right arm along with CT of the chest was reviewed dated 09/30. She has right lung infiltrate with effusion is small. 3. No significant tobacco history. 4. Right u ext cellulitis. Infectious Disease is following. 5. MRSA bacteremia , per ID 6. Encephalopathy multifactorial 7. Right upper extremity cellulitis 8. Abnormal LFTs 9. Protein malnutrition Plan . Updated October 04 Continue antibiotics per ID Up into chair Needs repeat follow-up CT chest in 6 to 8 weeks Advance diet as tolerated Check C. difficile No significant effusion seen on current chest x-ray 10/03 02 titration to keep sat 92% reviewed cxr, r infilt consolidation ? worse cxr in am BD atrovent only tachycardic avoid over sedation abg reviewed fu bcx mrsa cont abx per id, Daptomycin,flagyl,doxycycline fu ct in 4-6 weeks Venous Doppler of the upper extremity did not show any evidence of DVT. monitor in icu discussed w JAYSHREE Paredes MD October 04, 2020 09:28
[2020-10-04] MEDS: DAPTOmycin (GENERIC) IVPB 490 MG in IV NORMAL SALINE 50ML 50 ML IV SCH (10:11)
--- NOTE | 2020-10-04 11:43 | PN ---
DATE: 10/04/2020 SUBJECTIVE: The patient is resting in her recliner, in no apparent respiratory distress. She is awake, alert, continued to complain of shortness of breath. She is definitely more awake, alert, has been able to move her right upper extremity, was able to walk with physical therapy. PHYSICAL EXAMINATION: GENERAL: When I examined her this morning, she was somewhat pale, not jaundiced or cyanosed. No thyromegaly. No jugular venous distention, but somewhat generalized anasarca. VITAL SIGNS: Her heart rate was 102, blood pressure is 137/74, temperature was 98.8, respiratory rate 24 and oxygen saturation was 95% on 2 liters of oxygen by nasal cannula. HEAD, EYES, EARS, NOSE AND THROAT: Normocephalic, atraumatic. NECK: Supple. HEART: Normal first and second heart sounds. No gallop, murmur. CHEST: Showed central trachea, equal bilateral expansion, air entry, vesicular breath sounds. No crepitation or rhonchi anteriorly. Has dull percussion noted and absent breath sounds on the right side posteriorly. Bilateral basal crepitation. I do not appreciate any rhonchi. ABDOMEN: Distended, soft, nontender. NEUROLOGIC: She is definitely more awake, alert. LABORATORY DATA: Her intake over the last 24 hours was 2888, output was 3635. As of this morning, her white cell count was up to 20,000, hemoglobin 11, hematocrit 34, MCV 93 and platelet count 282,000 with normal manual differential. Her chemistry showed a serum sodium 139, potassium 3.6, chloride 104, bicarbonate 27, anion gap of 8, BUN 18, creatinine 0.6. Estimated GFR was 111 mL/min. Her glucose 168, calcium was 8.2. Total bilirubin, AST, ALT were normal. Alkaline phosphatase slightly elevated. Total protein was 5.8, albumin was 1.4. ASSESSMENT: 1. Acute hypoxic respiratory failure, improving. Her oxygen requirement is down from 6 liters to 2 liters now. 2. Community-acquired pneumonia with questionable parapneumonic effusion. 3. Marked swollen right upper extremity, possible cellulitis; however, venous Doppler ultrasound was negative for deep vein thrombosis. 4. The patient has an abscess in the left gluteal area. 5. Poorly controlled type 2 diabetes mellitus. 6. Hypertension. 7. Hyperlipidemia. 8. Fatty liver. 9. Depression and anxiety. 10. Peripheral neuropathy. 11. Hypokalemia, resolved. 12. Severe protein calorie malnutrition. Serum albumin is only 1.4 g/dL. PLAN: 1. To continue with the IV antibiotic as recommended by the infectious disease specialist. 2. Continue with pain management. She is now on oxycodone. 3. Continue with DVT prophylaxis in form of SCDs. 4. Continue with oxygen supplementation. 5. Continue nutritional support in the form of TPN and encourage oral intake. 6. I will arrange for a CT scan of the chest without contrast to evaluate for the right side pleural effusion that might require drainage. [facility] [place]: Kali TID: [id number]
[2020-10-04] MEDS ORDERED: IOHEXOL 300 MG/ML 100ML VIAL. IV ONE (14:30)
[2020-10-04] MEDS ORDERED: CONTRAST GIVEN. MC PRN (14:45)
--- NOTE | 2020-10-04 17:24 | RAD ---
STUDY: CT of the right upper extremity with contrast INDICATION: Right upper extremity swelling COMPARISON: 09/30/2020 TECHNIQUE: Axial CT imaging of the right upper extremity performed 75 cc Omnipaque 300 contrast. Chandan nal and sagittal reformats were obtained. One or more of the following individualized dose reduction techniques were utilized for this examinat ion: 1. Automated exposure control 2. Adjustment of the mA and/or kV according to patient size 3. Use of iterative reconstruction technique. FINDINGS: Much of the right upper extremity is not included in the [id number]. Portions that are included in the [id number]-nr-[id number] are degraded given positioning near the edge of the imaging field. Ill-defined subcutaneous fatty reticulation seen along the medial aspect of the upper arm becoming ap parent at approximately the mid humerus. No drainable fluid collection is identified. No CT evidence for a shoulder joint effusion. No erosive change across the glenohumeral or acromioclavicular joints. No fracture or periostitis involving the shoulder girdle or partially imaged humerus. Right axillary lymph nodes on images 40 and 41 series 12 measures 0.9 cm and 0.8 cm short axis, respectively. Chest and abdominal findings detailed separately. IMPRESSION: 1. Only a small portion of the right upper extremity is included in the [id number]. Nonspecific i ll-defined edema along the medial aspect of the upper arm beginning at approximately the mid aspect o f the humerus and extending towards the elbow. No soft tissue gas or well delineated fluid collection along the imaged portion of the upper shotty. Mildly prominent but not pathologically enlarged axill erna lymph nodes. 2. Abnormalities involving the chest and abdomen detailed in a separate report. Electronically signed by: RASHAD HELM MD (10/04/2020 5:21 PM) [facility]
[2020-10-04] MEDS: DULoxetine HCL 30 MG CAPSULE.DR PO SCH (20:47)
[2020-10-04] MEDS: GABAPENTIN 300 MG CAPSULE. PO SCH (20:48)
[2020-10-04] MEDS: INSULIN GLARGINE SYRINGE. SQ SCH (20:51)
[2020-10-04] MEDS: oxyCODONE/APAP 5/325 1 TAB TABLET PO PRN (20:55)
--- NOTE | 2020-10-04 22:33 | RAD ---
Study: CT chest, abdomen and pelvis with contrast INDICATION: Pneumonia. Pleural effusion. COMPARISON: CT chest 09/28/2020 TECHNIQUE: Helical CT imaging performed of the chest, abdomen and pelvis after the intravenous admini stration of 75 cc Omnipaque 300. Coronal and sagittal reformats were obtained. One or more of the following individualized dose reduction techniques were utilized for this examinat ion: 1. Automated exposure control 2. Adjustment of the mA and/or kV according to patient size 3. Use of iterative reconstruction technique. FINDINGS: CT Chest: Right IJ central venous catheter extending into the right atrium. Normal aortic caliber. Unchanged transverse dimension of the main pulmonary artery at 2.9 cm. In gene ral mediastinal lymph nodes have increased in size. A subcarinal lymph node now measures 1.4 cm genesis red to 1 cm. Small amount of pericardial fluid. Increase in size of a right pleural effusion but still relatively small. Progressive atelectasis on t he right. No pleural effusion on the left but with increasing atelectasis/infiltrates with newly seen groundglass densities some of which are perihilar but the majority subpleural.. Branching opacities with a basilar predilection of the aerated right lung. Mild increase in size of a few lower neck lymph nodes such as retroclavicular on the right, image 7 s eries 3 measuring 1 cm short axis compared to 0.7 cm. No pathologically enlarged axillary lymph nodes . Mild fatty stranding along the right lateral chest wall towards the breast. More pronounced subcuta neous edema below the diaphragm. No newly seen osseous abnormality. Partial segmentation anomaly at T5. CT Abdomen/Pelvis: Hepatic steatosis and mild hepatic enlargement. The spleen is within normal limits for size. Small ga llstone. No CT manifestations of acute cholecystitis. Nondilated biliary tree. Unremarkable pancreas. No adrenal gland mass. A few areas of hypoattenuation within the renal parenchyma. Endoscopy Registered Nurse low-attenuation at the rig ht kidney upper pole on image 41 series 8 measuring 2.2 cm. Mild perinephric fat stranding. No hydron ephrosis. The urinary bladder is partially imaged. Duncan catheter noted. Unremarkable uterus. Bilater al ovarian dermoid cysts on the right measuring up to 4.5 cm and on the left 6.1 cm. Incompletely for med stool within the colon. No pericolonic inflammation. Normal appendix. Nonobstructed small bowel. The stomach is within normal limits. Nonaneurysmal aorta. Patent central portal veins and superior mesenteric vein. Precaval lymph node on image 32 series 4 is mildly enlarged at 1.1 cm. Retroperitoneal lymph nodes are subcentimeter in siz e. There appears to be a small amount of fluid subjacent to the right hemidiaphragm. Body wall edema. Mildly diastatic ventral midline above the umbilicus. No complex body wall hernia. E dematous soft tissues partially imaged along the dorsum of the hand, image 85 series 4. No acute or aggressive osseous process. IMPRESSION: CT Chest: 1. Increase in size of a small right pleural effusion. More pronounced atelectasis on the right and progression of branching opacities and interlobular septal thickening. As was noted previously a port ion of the findings could be related to asymmetric pulmonary edema. The appearance would be somewhat unusual for worsening pneumonia but an atypical infectious process remains a consideration. 2. No pleural effusion has developed on the left however there are increasing predominantly groundgl ass infiltrates. Atypical infection is on the differentiation is well. 3. Increase in size of mediastinal lymph nodes but not unexpected given worsened appearance of the l ungs. CT Abdomen/Pelvis: 1. Heterogeneous attenuation of the kidneys more noticeable on the right and best seen at the right kidney upper pole (image 41 series 8). This is not well explained by artifact but the areas of hetero geneity are poorly defined and not diagnostic of a particular pathology. Recommend urinalysis and con labeling specialist follow-up to assess for processes such as pyelonephritis or evolving renal infarcts. 2. Hepatic steatosis and mild hepatomegaly. Small gallstone without findings of cholecystitis. 3. Fluid within the colon typical of a diarrheal state. No bowel obstruction. 4. There appears to be a small amount of subdiaphragmatic free fluid. 5. Incidental bilateral dermoid cysts Electronically signed by: RASHAD HELM MD (10/04/2020 10:31 PM) [facility] [place]
[2020-10-05] MEDS: AMINO AC 3%/ELECTROLYTE/GLYCER 1,000 ML IV SCH ×2 (02:42→15:35)
[2020-10-05 04:00] VITALS: BP 127/55
[2020-10-05] MEDS: CEFEPIME HCL IV Push 2 GM VIAL. IVP SCH ×3 (06:02→22:00)
[2020-10-05] MEDS: metroNIDAZOLE 500 MG TABLET PO SCH ×3 (06:02→22:00)
[2020-10-05 06:25] LABS: CREATININE 0.6 mg/dL (0.6-1.0); GFR 111.3
--- NOTE | 2020-10-05 06:57 | NUR ---
IP: Pt is mrsa + in blood from culture done at [facility] on 09/28/20 requiring contact precautions.
[2020-10-05] MEDS ORDERED: FUROSEMIDE 40 MG/4 ML VIAL. IVP ONE (07:30)
--- NOTE | 2020-10-05 07:54 | PN ---
DATE: 10/05/2020 SUBJECTIVE: The patient is sitting comfortably in her recliner in no apparent distress, awake, alert, continued to complain of pain in her right arm, right side of the chest. Her appetite continues to be poor; however, she was able to walk twice yesterday. The CT scan of the chest, abdomen and pelvis showed that the patient has increase in size of her small right-sided pleural effusion with more pronounced atelectasis on the right and progression of branching opacities and interlobular septal thickening. Some of the findings are related to asymmetric pulmonary edema. The appearance would be somewhat unusual for worsening pneumonia, but an atypical infectious process remains a consideration. No pleural effusion has developed on the left; however, there are increasing predominantly ground glass infiltrates, atypical infection is on the differential as well. Increased size of mediastinal lymph nodes, but not unexpected given worsening appearance of the lungs. CT scan of the abdomen showed heterogenous attenuation of the kidneys, more noticeable on the right and best seen at the right kidney upper pole and is not well explained by artifacts, but the areas of heterogeneity are poorly defined and not diagnostic of any particular pathology. Recommend urinalysis and consider followup to assess for the process such as pyelonephritis or evolving renal infarct. She was found to have hepatic steatosis and mild hepatomegaly, small gallstones without finding of cholecystitis. There is fluid within the colon, typically with diarrheal state. No bowel obstruction. There appears to be a small amount of subdiaphragmatic free fluid and incidental finding of dermoid cyst. OBJECTIVE: GENERAL: On examining her, she was pale, but no jaundice, cyanosis, no lymphadenopathy, no thyromegaly. No jugular venous distention, no lower limb edema. VITAL SIGNS: Heart rate was 80, blood pressure is 127/55, temperature was 98.2, respiratory rate was 18 and oxygen saturation was 92% on 2 liters of oxygen. HEAD, EYES, EARS, NOSE AND THROAT: Normocephalic, atraumatic. NECK: Supple. HEART: Showed normal first and second heart sounds, no gallop, murmur. CHEST: Shows central trachea, equal bilateral chest expansion, air entry, vesicular breath sounds. No crepitation or rhonchi anteriorly. The patient has dull percussion noted and absent breath sounds, bilateral basal crepitation posteriorly, more so on the right than left. ABDOMEN: Soft, nontender. NEUROLOGIC: She was grossly intact. She continued to have swollen right upper extremity compared to the left with limited mobility. Her intake was 3200. Output was 4100. LABORATORY DATA: Today's labs are still pending at the time of this dictation. ASSESSMENT: 1. Acute hypoxic respiratory failure, improving. Her oxygen requirement is down from 6 liters to 2 liters. 2. Community-acquired pneumonia, questionable left-sided pleural effusion versus parapneumonic effusion. 3. Markedly swollen right upper extremity, possible cellulitis; however, venous Doppler ultrasound was negative for deep vein thrombosis and CT scan showed no obvious drainable abscess. 4. The patient has an abscess in the left gluteal area. 5. The patient has poorly controlled type 2 diabetes. 6. Hypertension. 7. Hyperlipidemia. 8. Fatty liver. 9. Depression and anxiety. 10. Peripheral neuropathy. 11. Hypokalemia, resolved. 12. Severe protein calorie malnutrition. Serum albumin is only 1.4 g/dL. PLAN: To continue with IV antibiotic as recommended by the infectious disease specialist. Continue with pain management. She is now on oxycodone. Continue with DVT prophylaxis in the form of SCDs. Continue with oxygen supplementation. Continue nutritional support. MARCOS DR: Kali TID: [id number]
[2020-10-05 08:00] VITALS: BP 140/85
[2020-10-05] MEDS: IPRATROPIUM BROMIDE 0.5 MG/2.5 ML NEBU. NEB SCH ×4 (08:15→18:20)
--- NOTE | 2020-10-05 08:35 | PDOC ---
Infectious Disease Note Subjective: Subjective Patient says feels better Denies fever, chills, nausea, vomiting, abdominal pain As of breath and cough have improved slightly Remains on 2 l O2 by nc No fevers, nausea, vomiting,abdo pain Vital Signs: Vital Signs Vital Signs Date Time Temp Pulse Resp B/P (MAP) Pulse Ox O2 Delivery O2 Flow Rate FiO2 10/05/20 08:11 94 Nasal Cannula 3.0 10/05/20 04:00 98.2 80 18 127/55 (79) 98.2 Physical Exam: PHYSICAL EXAM GENERAL: Alert, oriented x 3, sitting in chair comfortably, in no acute distress. Looks better HEENT: Normocephalic, atraumatic. Anicteric. No thrush. Oral mucosa dry on O2 by nasal cannula. NECK: Supple, no JVD, no lymphadenopathy. Right neck central line clean. LUNGS: Poor inspiratory effort, no wheezing. Decreased breath sounds at the bases. HEART: S1, S2, No murmurs. ABDOMEN: Soft, nontender, nondistended, no rebound or guarding. EXTREMITIES: Right upper extremity swelling extending from hand to shoulder, mild redness, diffuse erythema and tenderness though improving, Radial pulse palpable. Decreased range of motion due to extreme swelling. No wrist, elbow or shoulder Effusion noted DERMATOLOGIC: No other open skin wounds noted. No generalized rash except for above. Dry scab present over the left cheek and right forearm. No abscess, no fluctuance. NEUROLOGIC: Alert, oriented x 3, grossly nonfocal. PSYCHIATRIC: Cooperative, calm, somewhat flat affect. Medications: Inpatient Meds: Medications reviewed. Labs: Lab Laboratory Tests Test 10/04/20 12:15 10/04/20 17:29 10/04/20 20:50 10/05/20 06:00 Glucose (Fingerstick) 260 mg/dL (70-99) 222 mg/dL (70-99) 225 mg/dL (70-99) Sodium Level 137 mmol/L (136-145) Potassium Level 4.0 mmol/L (3.5-5.1) Chloride Level 103 mmol/L (98-107) Carbon Dioxide Level 25 mmol/L (21-32) Anion Gap 9 (6-14) Blood Urea Nitrogen 12 mg/dL (7-20) Creatinine 0.6 mg/dL (0.6-1.0) Estimated GFR (Cockcroft-Gault) 111.3 Glucose Level 252 mg/dL (70-99) Calcium Level 8.0 mg/dL (8.5-10.1) Micro RUN DATE: 10/02/20 [facility] LAB *LIVE* PAGE 1 RUN TIME: 929 Specimen Inquiry PATIENT: JONATAN SON ACCT: [id number] LOC: [address] [place] [address] U: [id number] AGE/SX: 40/F ROOM: 120 RE09/28/[address]: SAMM FOFANA MD : 1980 BED: A DIS: 09/29/20 STATUS: DIS IN TLOC: SPEC #: [id number] ABDOULAYE: 09/28/20 STATUS: COMP REQ #: [id number] RECD: 09/28/[address]: ALVARO GALVIN APRN SOURCE: BLOOD ENTR: 09/30/[address] [facility] [address]: MELIZA ANDREW MD SPDESC: ALVARO NUNEZ DO ORDERED: BLOOD CULT-LC Procedure Result BLOOD CULTURE LC Final Final GRAM POSITIVE COCCI FINAL ID= [STAPHYLOCOCCUS AUREUS (MRSA)] STAPHYLOCOCCUS AUREUS (MRSA) ANTIMICROBIAL SUSCEPTIBILITY Final Comment POS IVELISSE TYPE 38 STAPHYLOCOCCUS AUREUS (MRSA) ANTIBIOTIC RESULT INTERPRETATION AZITHROMYCIN >4 R CLINDAMYCIN <=0.25 S CEFOXITIN SCREEN >4 POS CIPROFLOXACIN <=1 S CEFTAROLINE <=0.5 S DAPTOMYCIN 1 S ERYTHROMYCIN >4 R GENTAMICIN <=4 S INDUCIBLE CLINDAMYCIN <=4/0.5 NEG LINEZOLID 2 S LEVOFLOXACIN <=1 S OXACILLIN >2 R PENICILLIN >2 R* RIFAMPIN <=1 S TRIMETHOPRIM/SULFAMETHOXAZOLE <=0.5/9.5 S TETRACYCLINE <=4 S VANCOMYCIN 1 S Unless otherwise specified, Testing Performed by: [address] [address] For Inquires, the Physician may contact the Microbiology department at [phone] <Conclusion> The left ventricle is normal size. The left ventricular systolic function is normal and the ejection fraction is within normal range. The Ejection Fraction is 55-60%. Doppler and Color Flow revealed no significant aortic regurgitation. There is no significant aortic valvular stenosis. Doppler and Color-flow revealed trace mitral regurgitation. Doppler and Color Flow revealed trace tricuspid regurgitation with an estimated PAP of 32 mmHg. There is a trace to small pericardial effusion with no evidence of hemodynamic significance. Objective: Assessment: 1. Sepsis 2. MRSA Bacteremia, 1/4 bottles at [facility], POA source left buttock skin lesion Repeat BC neg here ECHO noted 3. Leukocytosis and Bandemia. 4. Severe right upper extremity swelling and pain. CTA negative for abscess Improving though slowly 5. Right upper extremity cellulitis. Improving 6. Diabetic ketoacidosis. 7. Abnormal LFTs. 8. Protein calorie malnutrition. 9. Neck pain with underlying chronic neck pain and back pain. 10. High CK at outside hospital. They are within normal limits 11. Left buttock skin lesion, improving. No evidence of abscess. 12. History of allergies to penicillin has tolerated ceftriaxone well at outside hospital 13. Pneumonia, right pleural effusion,?Parapneumonic effusion 14. Mild CHF 2D echo noted Plan: Plan of Care CT chest, abdomen and pelvis noted CT right upper extremity did not reveal any abscess formation 1. Continue Daptomycin,Cefepime,flagyl,doxycycline, Was on IV Vanc and clindamycin 3. Follow-up repeat blood cultures here negative so far 4. May need thoracocentesis 5. Elevate right upper extremity. 6.. Continue local care. 7.. Maintain aspiration precautions. 8 Follow-up infectious disease serologies and C. difficile PCR Discussed with CECIL EDWARDS MD Oct 05, 2020 08:35
[2020-10-05] MEDS: LABETALOL HCL 100 MG TABLET. PO SCH ×2 (08:43→20:21)
[2020-10-05] MEDS: POTASSIUM CHLORIDE 20 MEQ TABLET.ER. PO SCH ×3 (08:45→17:40)
[2020-10-05] MEDS: DOXYCYCLINE HYCLATE 100 MG TABLET PO SCH ×2 (08:45→20:22)
[2020-10-05] MEDS: LACTOBACILLUS RHAMNOSUS GG 1 CAPSULE. PO SCH ×2 (08:45→20:22)
[2020-10-05] MEDS: NYSTATIN TOPICAL POWDER 15GM BOTTLE. TP SCH ×2 (08:46→21:00)
[2020-10-05] MEDS: LINEZOLID 600 MG TABLET PO SCH ×2 (08:47→20:21)
[2020-10-05] MEDS: oxyCODONE/APAP 5/325 1 TAB TABLET PO PRN ×2 (08:48→20:23)
[2020-10-05] MEDS: INSULIN LISPRO 300 UNITS/3 ML VIAL. SQ SCH ×4 (08:58→22:15)
[2020-10-05] MEDS: DAPTOmycin (GENERIC) IVPB 490 MG in IV NORMAL SALINE 50ML 50 ML IV SCH (09:34)
[2020-10-05 10:21] LABS: HEMATOCRIT 35.6 % (36.0-47.0); HEMOGLOBIN 11.9 g/dL (12.0-15.5); RED BLOOD COUNT 3.75 x10^6/uL (3.50-5.40); RED CELL DISTRIBUTION WIDTH 13.6 % (11.5-14.5); WHITE BLOOD COUNT 19.3 x10^3/uL (4.0-11.0)
--- NOTE | 2020-10-05 10:21 | PDOC ---
PULMONARY PROGRESS NOTES DATE: 10/05/20 TIME: 10:18 Subjective Patient is resting comfortably on 2 L nasal cannula, reports some shortness of breath with exertion Denies cough, chest pain no overnight Events per nursing Vitals Vital Signs Date Time Temp Pulse Resp B/P (MAP) Pulse Ox O2 Delivery O2 Flow Rate FiO2 10/05/20 09:33 94 Nasal Cannula 2.0 10/05/20 08:43 106 140/85 10/05/20 04:00 98.2 18 98.2 ROS: No Nausea, No Chest Pain, No Abdominal Pain, No Increase Cough General: Alert, No acute distress Lungs: Other (dimished bs on right ) Cardiovascular: S1, S2 Abdomen: Soft, Non-tender, Other (obese) Neuro Exam: Alert Extremities: Other (1+edema lower, right arm swelling) Skin: Warm Labs Laboratory Tests Test 10/03/20 11:39 10/03/20 17:03 10/03/20 20:59 10/04/20 06:00 Glucose (Fingerstick) 222 mg/dL (70-99) 266 mg/dL (70-99) 253 mg/dL (70-99) White Blood Count 20.0 x10^3/uL (4.0-11.0) Red Blood Count 3.66 x10^6/uL (3.50-5.40) Hemoglobin 11.4 g/dL (12.0-15.5) Hematocrit 34.1 % (36.0-47.0) Mean Corpuscular Volume 93 fL (79-100) Mean Corpuscular Hemoglobin 31 pg (25-35) Mean Corpuscular Hemoglobin Concent 34 g/dL (31-37) Red Cell Distribution Width 13.4 % (11.5-14.5) Platelet Count 282 x10^3/uL (140-400) Neutrophils (%) (Auto) 81 % (31-73) Lymphocytes (%) (Auto) 10 % (24-48) Monocytes (%) (Auto) 9 % (0-9) Eosinophils (%) (Auto) 1 % (0-3) Basophils (%) (Auto) 0 % (0-3) Neutrophils # (Auto) 16.1 x10^3/uL (1.8-7.7) Lymphocytes # (Auto) 1.9 x10^3/uL (1.0-4.8) Monocytes # (Auto) 1.8 x10^3/uL (0.0-1.1) Eosinophils # (Auto) 0.1 x10^3/uL (0.0-0.7) Basophils # (Auto) 0.1 x10^3/uL (0.0-0.2) Sodium Level 139 mmol/L (136-145) Potassium Level 3.6 mmol/L (3.5-5.1) Chloride Level 104 mmol/L (98-107) Carbon Dioxide Level 27 mmol/L (21-32) Anion Gap 8 (6-14) Blood Urea Nitrogen 18 mg/dL (7-20) Creatinine 0.6 mg/dL (0.6-1.0) Estimated GFR (Cockcroft-Gault) 111.3 BUN/Creatinine Ratio 30 (6-20) Glucose Level 268 mg/dL (70-99) Calcium Level 8.2 mg/dL (8.5-10.1) Total Bilirubin 1.0 mg/dL (0.2-1.0) Aspartate Amino Transf (AST/SGOT) 29 U/L (15-37) Alanine Aminotransferase (ALT/SGPT) 23 U/L (14-59) Alkaline Phosphatase 196 U/L (46-116) Total Protein 5.8 g/dL (6.4-8.2) Albumin 1.4 g/dL (3.4-5.0) Albumin/Globulin Ratio 0.3 (1.0-1.7) Test 10/04/20 12:15 10/04/20 17:29 10/04/20 20:50 10/05/20 06:00 Glucose (Fingerstick) 260 mg/dL (70-99) 222 mg/dL (70-99) 225 mg/dL (70-99) Sodium Level 137 mmol/L (136-145) Potassium Level 4.0 mmol/L (3.5-5.1) Chloride Level 103 mmol/L (98-107) Carbon Dioxide Level 25 mmol/L (21-32) Anion Gap 9 (6-14) Blood Urea Nitrogen 12 mg/dL (7-20) Creatinine 0.6 mg/dL (0.6-1.0) Estimated GFR (Cockcroft-Gault) 111.3 Glucose Level 252 mg/dL (70-99) Calcium Level 8.0 mg/dL (8.5-10.1) Test 10/05/20 08:55 Glucose (Fingerstick) 283 mg/dL (70-99) Laboratory Tests Test 10/04/20 12:15 10/04/20 17:29 10/04/20 20:50 10/05/20 06:00 Glucose (Fingerstick) 260 mg/dL (70-99) 222 mg/dL (70-99) 225 mg/dL (70-99) Sodium Level 137 mmol/L (136-145) Potassium Level 4.0 mmol/L (3.5-5.1) Chloride Level 103 mmol/L (98-107) Carbon Dioxide Level 25 mmol/L (21-32) Anion Gap 9 (6-14) Blood Urea Nitrogen 12 mg/dL (7-20) Creatinine 0.6 mg/dL (0.6-1.0) Estimated GFR (Cockcroft-Gault) 111.3 Glucose Level 252 mg/dL (70-99) Calcium Level 8.0 mg/dL (8.5-10.1) Test 10/05/20 08:55 Glucose (Fingerstick) 283 mg/dL (70-99) Medications Active Scripts Medications Dose Route/Sig Max Daily Dose Days Date Category Zofran (Ondansetron Hcl) 4 Mg Tablet 4 Mg IVP PRN Q6HRS PRN 09/29/20 Reported Humalog (Insulin Lispro) 100 Unit/1 Ml Cartridge 20 Unit SQ QIDACHS 09/29/20 Reported Lantus Solostar (Insulin Glargine,Hum.rec.anlog) 100 Unit/1 Ml Insuln.pen 20 Unit SQ QHS 09/29/20 Reported Comments Chest x-ray reviewed, right infiltrate no change Impression . 1. Acute hypoxic respiratory failure secondary to right lung pneumonia, and small right-sided pleural effusion , likely parapneumonic. 2. Abnormal CT chest done on at [facility] with no evidence of central pulmonary emboli, but the contrast was poor and unable to see segmental and subsegmental pulmonary arteries. She has some asymmetric right septal thickening and also a right upper lobe bilobed opacity 1.4 cm in size. Now, her chest x-ray has shown increasing pleural effusion and pleural thickening and associated infiltrates. CT of right arm along with CT of the chest was reviewed dated 09/30. She has right lung infiltrate with effusion is small. 3. No significant tobacco history. 4. Right u ext cellulitis. Infectious Disease is following. 5. MRSA bacteremia , per ID 6. Encephalopathy multifactorial 7. Right upper extremity cellulitis 8. Abnormal LFTs 9. Protein malnutrition Plan . Updated 10/05/2020 Continue supplemental oxygen to keep oxygen saturations greater than 92%, currently on [address] chest reviewed, no need for thoracentesis at this point in time I-S at bedside, encourage hourly use Will need repeat CT of chest in 6 to 8 weeks Continue PPN for nutritional support and additional to p.o. intake, encourage p.o. intake Follow infectious disease recommendations in regards to antibiotics, follow cultures, C. difficile pending----MRSA bacteremia DVT/GI prophylaxis Discussed with RN Updated October 04 Continue antibiotics per ID Up into chair Needs repeat follow-up CT chest in 6 to 8 weeks Advance diet as tolerated Check C. difficile No significant effusion seen on current chest x-ray 10/03 02 titration to keep sat 92% reviewed cxr, r infilt consolidation ? worse cxr in am BD atrovent only tachycardic avoid over sedation abg reviewed fu bcx mrsa cont abx per id, Daptomycin,flagyl,doxycycline fu ct in 4-6 weeks Venous Doppler of the upper extremity did not show any evidence of DVT. monitor in icu discussed w JAYSHREE Paredes MD Oct 05, 2020 10:21
[2020-10-05 12:00] VITALS: BP 115/73
[2020-10-05 16:00] VITALS: BP 101/67
--- NOTE | 2020-10-05 16:34 | NUR ---
SS following up with discharge planning. SS reviewed pt chart and discussed with pt RN. Pt is from home with family and is currently requiring oxygen at three liters nasal canula. Pt on PPN, IV Daptomycin, and IV Cefepime. PT/OT recommended home with assistance. SS will continue to follow for discharge planning. Addendum: 10/05/20 at 1636 by NILES SOLIS SS Pt transferred to room 662. Nkechi CAGLE to follow.
[2020-10-05 19:00] VITALS: BP 108/55
[2020-10-05] MEDS: DULoxetine HCL 30 MG CAPSULE.DR PO SCH (20:22)
[2020-10-05] MEDS: GABAPENTIN 300 MG CAPSULE. PO SCH (20:22)
[2020-10-05] MEDS: INSULIN GLARGINE SYRINGE. SQ SCH (22:14)
[2020-10-05 23:00] VITALS: BP 102/56
[2020-10-06] MEDS: AMINO AC 3%/ELECTROLYTE/GLYCER 1,000 ML IV SCH ×2 (02:22→13:41)
[2020-10-06 03:00] VITALS: BP 109/64
[2020-10-06] MEDS: oxyCODONE/APAP 5/325 1 TAB TABLET PO PRN ×5 (04:02→21:55)
--- NOTE | 2020-10-06 04:31 | NUR ---
Patient remains SOA, with minimal exertion, with repositioning in bed, not much as far as effort to cough, IS encouraged, pt is assisted and instructed on IS use, able to move gauge to 500ml, slight, painful cough is elicited. Did use x6, patient reports to do again later.
[2020-10-06] MEDS: CEFEPIME HCL IV Push 2 GM VIAL. IVP SCH ×3 (06:00→21:58)
[2020-10-06] MEDS: metroNIDAZOLE 500 MG TABLET PO SCH ×3 (06:00→21:57)
[2020-10-06 07:00] VITALS: BP 129/66
[2020-10-06] MEDS ORDERED: ALTEPLASE 1MG SYRINGE. INT CAT ONE (07:45)
[2020-10-06] MEDS: IPRATROPIUM BROMIDE 0.5 MG/2.5 ML NEBU. NEB SCH ×4 (07:49→20:18)
[2020-10-06] MEDS: NYSTATIN TOPICAL POWDER 15GM BOTTLE. TP SCH ×2 (08:19→22:15)
[2020-10-06] MEDS: LACTOBACILLUS RHAMNOSUS GG 1 CAPSULE. PO SCH ×2 (08:20→21:57)
[2020-10-06] MEDS: LABETALOL HCL 100 MG TABLET. PO SCH ×2 (08:20→21:56)
[2020-10-06] MEDS: DOXYCYCLINE HYCLATE 100 MG TABLET PO SCH ×2 (08:21→21:57)
[2020-10-06] MEDS: LINEZOLID 600 MG TABLET PO SCH ×2 (08:21→21:56)
[2020-10-06] MEDS: POTASSIUM CHLORIDE 20 MEQ TABLET.ER. PO SCH ×2 (08:21→12:00)
[2020-10-06] MEDS: INSULIN LISPRO 300 UNITS/3 ML VIAL. SQ SCH ×4 (08:24→22:23)
--- NOTE | 2020-10-06 08:40 | PDOC ---
Infectious Disease Note Subjective: Subjective Patient says feels better though had chestpain in the rt lung area since yesterday Denies fever, chills, nausea, vomiting, abdominal pain RUE swelling, pain and redness is improving Remains on 2 l O2 by nc No fevers, nausea, vomiting,abdo pain Vital Signs: Vital Signs Vital Signs Date Time Temp Pulse Resp B/P (MAP) Pulse Ox O2 Delivery O2 Flow Rate FiO2 10/06/20 08:25 94 Nasal Cannula 2.0 10/06/20 08:20 91 129/66 10/06/20 07:00 97.8 18 97.8 Physical Exam: PHYSICAL EXAM GENERAL: Alert, oriented x 3, sitting in chair comfortably, in no acute distress. Looks better HEENT: Normocephalic, atraumatic. Anicteric. No thrush. Oral mucosa dry on O2 by nasal cannula. NECK: Supple, no JVD, no lymphadenopathy. Right neck central line clean. LUNGS: Poor inspiratory effort, no wheezing. Decreased breath sounds at the bases. HEART: S1, S2, No murmurs. ABDOMEN: Soft, nontender, nondistended, no rebound or guarding. EXTREMITIES: Right upper extremity swelling extending from hand to shoulder, mild redness, diffuse erythema and tenderness though improving, Radial pulse palpable. Decreased range of motion due to extreme swelling. No wrist, elbow or shoulder Effusion noted DERMATOLOGIC: No other open skin wounds noted. No generalized rash except for above. Dry scab present over the left cheek and right forearm. No abscess, no fluctuance. NEUROLOGIC: Alert, oriented x 3, grossly nonfocal. PSYCHIATRIC: Cooperative, calm, somewhat flat affect. Medications: Inpatient Meds: Medications reviewed. Labs: Lab Laboratory Tests Test 10/05/20 08:55 10/05/20 12:26 10/05/20 17:02 10/05/20 20:13 Glucose (Fingerstick) 283 mg/dL (70-99) 292 mg/dL (70-99) 212 mg/dL (70-99) 213 mg/dL (70-99) Test 10/06/20 07:25 Glucose (Fingerstick) 238 mg/dL (70-99) Micro RUN DATE: 10/02/20 [facility] LAB *LIVE* PAGE 1 RUN TIME: 929 Specimen Inquiry PATIENT: JONATAN SON ACCT: [id number] LOC: [address] [place] [address] U: [id number] AGE/SX: 40/F ROOM: [facility] RE09/28/[address]: SAMM FOFANA MD : 1980 BED: A DIS: 09/29/20 STATUS: DIS IN TLOC: ------ ------ SPEC #: [id number] ABDOULAYE: 09/28/20 STATUS: COMP REQ #: [id number] RECD: 09/28/[address]: ALVARO GALVIN APRN SOURCE: BLOOD ENTR: 09/30/[address] [facility] DR: MELIZA ANDREW [facility] AL[facility]UN[facility] DO ORDERED: BLOOD CULT-LC Procedure Result BLOOD CULTURE LC Final Final GRAM POSITIVE COCCI FINAL ID= [STAPHYLOCOCCUS AUREUS (MRSA)] STAPHYLOCOCCUS AUREUS (MRSA) ANTIMICROBIAL SUSCEPTIBILITY Final Comment POS IVELISSE TYPE 38 STAPHYLOCOCCUS AUREUS (MRSA) ANTIBIOTIC RESULT INTERPRETATION AZITHROMYCIN >4 R CLINDAMYCIN <=0.25 S CEFOXITIN SCREEN >4 POS CIPROFLOXACIN <=1 S CEFTAROLINE <=0.5 S DAPTOMYCIN 1 S ERYTHROMYCIN >4 R GENTAMICIN <=4 S INDUCIBLE CLINDAMYCIN <=4/0.5 NEG LINEZOLID 2 S LEVOFLOXACIN <=1 S OXACILLIN >2 R PENICILLIN >2 R* RIFAMPIN <=1 S TRIMETHOPRIM/SULFAMETHOXAZOLE <=0.5/9.5 S TETRACYCLINE <=4 S VANCOMYCIN 1 S Unless otherwise specified, Testing Performed by: [address] [address] For Inquires, the Physician may contact the Microbiology department at [phone] -- <Conclusion> The left ventricle is normal size. The left ventricular systolic function is normal and the ejection fraction is within normal range. The Ejection Fraction is 55-60%. Doppler and Color Flow revealed no significant aortic regurgitation. There is no significant aortic valvular stenosis. Doppler and Color-flow revealed trace mitral regurgitation. Doppler and Color Flow revealed trace tricuspid regurgitation with an estimated PAP of 32 mmHg. There is a trace to small pericardial effusion with no evidence of hemodynamic significance. Objective: Assessment: 1. Sepsis 2. MRSA Bacteremia, 1/ bottles at [facility], POA source left buttock skin lesion Repeat BC neg here ECHO noted 3. Leukocytosis and Bandemia. 4. Severe right upper extremity swelling and pain. CTA negative for abscess Improving though slowly 5. Right upper extremity cellulitis. Improving 6. Diabetic ketoacidosis. 7. Abnormal LFTs. 8. Protein calorie malnutrition. 9. Neck pain with underlying chronic neck pain and back pain. Improved 10. High CK at outside hospital. Here within normal limits 11. Left buttock skin lesion, improving. No evidence of abscess. 12. History of allergies to penicillin has tolerated ceftriaxone well at outside hospital 13. Pneumonia, right pleural effusion,?Parapneumonic effusion 14. Mild CHF 2D echo noted Plan: Plan of Care DC Rt Central line Continue Daptomycin,Cefepime,flagyl,doxycycline, linezolid Follow-up repeat blood cultures here negative so far No thoracocentesis per pulm Elevate right upper extremity. Continue local care. Maintain aspiration precautions. C diff neg Discussed with CECIL EDWARDS MD Oct 06, 2020 08:39
--- NOTE | 2020-10-06 10:44 | PDOC ---
PULMONARY PROGRESS NOTES DATE: 10/06/20 TIME: 10:44 Subjective Patient is resting comfortably on 2 L nasal cannula, NO SOA or cough clinically improving Vitals Vital Signs Date Time Temp Pulse Resp B/P (MAP) Pulse Ox O2 Delivery O2 Flow Rate FiO2 10/06/20 09:09 94 Nasal Cannula 2.0 10/06/20 08:20 91 129/66 10/06/20 07:00 97.8 18 97.8 ROS: No Nausea, No Chest Pain, No Abdominal Pain, No Increase Cough General: Alert, Oriented X4, No acute distress Lungs: Clear Cardiovascular: S1, S2 Abdomen: Soft, Non-tender, Other (obese) Neuro Exam: Alert Extremities: Other (1+edema lower, right arm swelling) Skin: Warm Labs Laboratory Tests Test 10/04/20 12:15 10/04/20 17:29 10/04/20 20:50 10/05/20 06:00 Glucose (Fingerstick) 260 mg/dL (70-99) 222 mg/dL (70-99) 225 mg/dL (70-99) White Blood Count 19.3 x10^3/uL (4.0-11.0) Red Blood Count 3.75 x10^6/uL (3.50-5.40) Hemoglobin 11.9 g/dL (12.0-15.5) Hematocrit 35.6 % (36.0-47.0) Mean Corpuscular Volume 95 fL (79-100) Mean Corpuscular Hemoglobin 32 pg (25-35) Mean Corpuscular Hemoglobin Concent 33 g/dL (31-37) Red Cell Distribution Width 13.6 % (11.5-14.5) Platelet Count 281 x10^3/uL (140-400) Sodium Level 137 mmol/L (136-145) Potassium Level 4.0 mmol/L (3.5-5.1) Chloride Level 103 mmol/L (98-107) Carbon Dioxide Level 25 mmol/L (21-32) Anion Gap 9 (6-14) Blood Urea Nitrogen 12 mg/dL (7-20) Creatinine 0.6 mg/dL (0.6-1.0) Estimated GFR (Cockcroft-Gault) 111.3 Glucose Level 252 mg/dL (70-99) Calcium Level 8.0 mg/dL (8.5-10.1) Test 10/05/20 08:55 10/05/20 12:26 10/05/20 17:02 10/05/20 20:13 Glucose (Fingerstick) 283 mg/dL (70-99) 292 mg/dL (70-99) 212 mg/dL (70-99) 213 mg/dL (70-99) Test 10/06/20 07:25 Glucose (Fingerstick) 238 mg/dL (70-99) Laboratory Tests Test 10/05/20 12:26 10/05/20 17:02 10/05/20 20:13 10/06/20 07:25 Glucose (Fingerstick) 292 mg/dL (70-99) 212 mg/dL (70-99) 213 mg/dL (70-99) 238 mg/dL (70-99) Medications Active Scripts Medications Dose Route/Sig Max Daily Dose Days Date Category Zofran (Ondansetron Hcl) 4 Mg Tablet 4 Mg IVP PRN Q6HRS PRN 09/29/20 Reported Humalog (Insulin Lispro) 100 Unit/1 Ml Cartridge 20 Unit SQ QIDACHS 09/29/20 Reported Lantus Solostar (Insulin Glargine,Hum.rec.anlog) 100 Unit/1 Ml Insuln.pen 20 Unit SQ QHS 09/29/20 Reported Comments Chest x-ray reviewed, right infiltrate no change Impression . 1. Acute hypoxic respiratory failure secondary to right lung pneumonia, and small right-sided pleural effusion , likely parapneumonic. 2. Abnormal CT chest done on at [facility] with no evidence of central pulmonary emboli, but the contrast was poor and unable to see segmental and subsegmental pulmonary arteries. She has some asymmetric right septal thickening and also a right upper lobe bilobed opacity 1.4 cm in size. Now, her chest x-ray has shown increasing pleural effusion and pleural thickening and associated infiltrates. CT of right arm along with CT of the chest was reviewed dated 09/30. She has right lung infiltrate with effusion is small. 3. No significant tobacco history. 4. Right u ext cellulitis. Infectious Disease is following. 5. MRSA bacteremia , per ID 6. Encephalopathy multifactorial 7. Right upper extremity cellulitis 8. Abnormal LFTs 9. Protein malnutrition Plan . Updated 10/06/2020 Continue supplemental oxygen to keep oxygen saturations greater than 92%, currently on [address] chest reviewed, no need for thoracentesis at this point in time I-S at bedside, encourage hourly use Will need repeat CT of chest in 6 to 8 weeks Continue PPN for nutritional support and additional to p.o. intake, encourage p.o. intake Follow infectious disease recommendations in regards to antibiotics, follow cultures,----MRSA bacteremia-- on Continue Daptomycin,Cefepime,flagyl,doxycycline, linezolid DVT/GI prophylaxis Discussed with JAYSHREE COSTA MD Oct 06, 2020 10:44
[2020-10-06 11:00] VITALS: BP 120/67
--- NOTE | 2020-10-06 12:49 | NUR ---
SW following. Discussed with RN, pt from home with spouse, 1.5L (does not use oxygen at home), ada doet. PPN, Cdiff negative. Therapy recommending home. Pt currently on multiple IV abx. SW will continue to follow.
--- NOTE | 2020-10-06 13:17 | PN ---
DATE: 10/06/2020 SUBJECTIVE: The patient is sitting slightly propped up in bed, no apparent distress. She stated that she has severe pain in the right-sided chest yesterday; however, she is feeling much better today. Continued to have poor appetite. However, she is discharged to work with physical and occupational therapy. PHYSICAL EXAMINATION: GENERAL: When I examined her, she looked pale, but no jaundice, cyanosis or thyromegaly. No jugular venous distention. No limb edema. VITAL SIGNS: Her heart rate was 102, blood pressure was 120/67, temperature 97.9, respiratory rate was 18 and oxygen saturation was 94% on 1.5 liters of oxygen. HEAD, EYES, EARS, NOSE AND THROAT: Normocephalic, atraumatic. NECK: Supple. HEART: Showed normal first and second heart sounds, no gallop, rub or murmur. CHEST: Shows central trachea, equal bilateral expansion, air entry, vesicular breath sounds. No crepitation or rhonchi anteriorly and posteriorly with dull percussion noted and absent breath sounds on the right side posteriorly. Bilateral basal crepitation. I could not appreciate any rhonchi. ABDOMEN: Slightly distended, soft, nontender. NEUROLOGIC: She is definitely more awake, alert, responding appropriately. She moves her extremities without difficulty. The swelling of the right upper extremity is decreasing, although has not completely resolved. Her intake over the last 24 hours was 1900, output was 1550. LABORATORY DATA: Today's labs are still pending at the time of this dictation. As of yesterday, her white cell count was 19,000, hemoglobin 12, hematocrit 36, MCV 95 and platelet count 281,000. Her chemistry as of yesterday showed a serum sodium 137, potassium 4, chloride 103, bicarbonate 25, anion gap of 9, BUN 12, creatinine 0.6. Estimated GFR was 111. Glucose was 252, calcium was 8. Her urine culture showed no growth and her blood culture showed no growth after 5 days; however, her blood cultures at [facility] showed growth of gram-positive cocci, 1/4 bottles, identified as methicillin-resistant Staph aureus sensitive to linezolid, vancomycin, tetracycline. ASSESSMENT: 1. Acute hypoxic respiratory failure, improving. Her oxygen requirement is down from 6 to 1-1/2 liters. 2. Community-acquired pneumonia with questionable left side pleural effusion versus parapneumonic effusion. 3. Markedly swollen right upper extremity, possible cellulitis. However, venous Doppler ultrasound was negative for deep vein thrombosis. CT scan showed no evidence of drainable abscess. 4. The patient has an abscess in the left gluteal area. 5. The patient has poorly controlled type 2 diabetes. 6. Hypertension. 7. Hyperlipidemia. 8. Fatty liver. 9. Depression and anxiety. 10. Peripheral neuropathy. 11. Hypokalemia, resolved. 12. Severe protein calorie malnutrition. Serum albumin is only 1.54 g/dL. PLAN: To continue with IV antibiotic as recommended by the Infectious Disease specialist. She is on linezolid, Flagyl, doxycycline and daptomycin as well as cefepime. Continue with pain management. Continue to monitor blood sugar and adjust insulin as needed. Continue with TPN for nutritional support. Encourage oral intake. Continue with physical and occupational therapy. [place] DR: Kali TID: [id number]
[2020-10-06 13:32] LABS: CALCIUM 8.3 mg/dL (8.5-10.1); CREATININE 0.7 mg/dL (0.6-1.0); GFR 93.2; POTASSIUM 4.7 mmol/L (3.5-5.1)
[2020-10-06] MEDS: DAPTOmycin (GENERIC) IVPB 490 MG in IV NORMAL SALINE 50ML 50 ML IV SCH (13:41)
[2020-10-06 15:00] VITALS: BP 118/72
[2020-10-06 19:00] VITALS: BP 112/64
[2020-10-06] MEDS: DULoxetine HCL 30 MG CAPSULE.DR PO SCH (21:57)
[2020-10-06] MEDS: GABAPENTIN 300 MG CAPSULE. PO SCH (21:57)
[2020-10-06] MEDS: INSULIN GLARGINE SYRINGE. SQ SCH (22:22)
[2020-10-06 23:00] VITALS: BP 115/66
[2020-10-07 03:00] VITALS: BP 96/56
[2020-10-07] MEDS: AMINO AC 3%/ELECTROLYTE/GLYCER 1,000 ML IV SCH ×2 (04:24→14:48)
[2020-10-07] MEDS: metroNIDAZOLE 500 MG TABLET PO SCH ×2 (06:00→14:52)
[2020-10-07] MEDS: CEFEPIME HCL IV Push 2 GM VIAL. IVP SCH ×3 (06:01→21:56)
[2020-10-07 06:14] LABS: BASO # 0.1 x10^3/uL (0.0-0.2); BASO % 0 % (0-3); EOS # 0.1 x10^3/uL (0.0-0.7); EOS % 1 % (0-3); HEMOGLOBIN 11.7 g/dL (12.0-15.5); LYMPH # 1.9 x10^3/uL (1.0-4.8); LYMPH % 13 % (24-48); MEAN CORPUSCULAR HEMOGLOBIN 31 pg (25-35); MEAN CORPUSCULAR HGB CONC 34 g/dL (31-37); MEAN CORPUSCULAR VOLUME 93 fL (79-100); MONO # 0.9 x10^3/uL (0.0-1.1); MONO % 6 % (0-9); NEUT # 11.9 x10^3/uL (1.8-7.7); NEUT % 80 % (31-73); PLATELET COUNT 335 x10^3/uL (140-400); RED BLOOD COUNT 3.76 x10^6/uL (3.50-5.40); RED CELL DISTRIBUTION WIDTH 13.7 % (11.5-14.5); WHITE BLOOD COUNT 14.9 x10^3/uL (4.0-11.0)
[2020-10-07 06:16] LABS: CALCIUM 8.3 mg/dL (8.5-10.1); CREATININE 0.6 mg/dL (0.6-1.0); GFR 111.3; POTASSIUM 4.4 mmol/L (3.5-5.1)
[2020-10-07 07:00] VITALS: BP 116/73
[2020-10-07] MEDS: IPRATROPIUM BROMIDE 0.5 MG/2.5 ML NEBU. NEB SCH ×4 (07:35→21:16)
--- NOTE | 2020-10-07 08:20 | PDOC ---
Infectious Disease Note Subjective: Subjective Patient complains of right-sided chest pain Right upper extremity swelling, redness and pain are improving though very slowly Denies any fever, nausea, vomiting, diarrhea Did have some GI upset yesterday, now resolved Mother at bedside Vital Signs: Vital Signs Vital Signs Date Time Temp Pulse Resp B/P (MAP) Pulse Ox O2 Delivery O2 Flow Rate FiO2 10/07/20 07:36 94 Nasal Cannula 2.0 10/07/20 07:00 97.9 95 18 116/73 (87) 97.9 Physical Exam: PHYSICAL EXAM GENERAL: Alert, oriented x 3, sitting in chair comfortably, in no acute distress. Looks better HEENT: Normocephalic, atraumatic. Anicteric. No thrush. Oral mucosa dry on O2 by nasal cannula. NECK: Supple, no JVD, no lymphadenopathy. Right neck central line clean. LUNGS: Poor inspiratory effort, no wheezing. Decreased breath sounds at the bases. HEART: S1, S2, No murmurs. ABDOMEN: Soft, nontender, nondistended, no rebound or guarding. EXTREMITIES: Right upper extremity swelling extending from hand to shoulder, mild redness, diffuse erythema and tenderness though improving, Radial pulse palpable. Decreased range of motion due to extreme swelling. No wrist, elbow or shoulder Effusion noted DERMATOLOGIC: No other open skin wounds noted. No generalized rash except for above. Dry scab present over the left cheek and right forearm. No abscess, no fluctuance. NEUROLOGIC: Alert, oriented x 3, grossly nonfocal. PSYCHIATRIC: Cooperative, calm, somewhat flat affect. Medications: Inpatient Meds: Medications reviewed. Labs: Lab Laboratory Tests Test 10/06/20 11:42 10/06/20 13:02 10/06/20 17:02 10/06/20 20:54 Glucose (Fingerstick) 238 mg/dL (70-99) 233 mg/dL (70-99) 203 mg/dL (70-99) Sodium Level 134 mmol/L (136-145) Potassium Level 4.7 mmol/L (3.5-5.1) Chloride Level 100 mmol/L (98-107) Carbon Dioxide Level 28 mmol/L (21-32) Anion Gap 6 (6-14) Blood Urea Nitrogen 13 mg/dL (7-20) Creatinine 0.7 mg/dL (0.6-1.0) Estimated GFR (Cockcroft-Gault) 93.2 Glucose Level 274 mg/dL (70-99) Calcium Level 8.3 mg/dL (8.5-10.1) Test 10/07/20 05:55 10/07/20 07:21 White Blood Count 14.9 x10^3/uL (4.0-11.0) Red Blood Count 3.76 x10^6/uL (3.50-5.40) Hemoglobin 11.7 g/dL (12.0-15.5) Hematocrit 35.0 % (36.0-47.0) Mean Corpuscular Volume 93 fL (79-100) Mean Corpuscular Hemoglobin 31 pg (25-35) Mean Corpuscular Hemoglobin Concent 34 g/dL (31-37) Red Cell Distribution Width 13.7 % (11.5-14.5) Platelet Count 335 x10^3/uL (140-400) Neutrophils (%) (Auto) 80 % (31-73) Lymphocytes (%) (Auto) 13 % (24-48) Monocytes (%) (Auto) 6 % (0-9) Eosinophils (%) (Auto) 1 % (0-3) Basophils (%) (Auto) 0 % (0-3) Neutrophils # (Auto) 11.9 x10^3/uL (1.8-7.7) Lymphocytes # (Auto) 1.9 x10^3/uL (1.0-4.8) Monocytes # (Auto) 0.9 x10^3/uL (0.0-1.1) Eosinophils # (Auto) 0.1 x10^3/uL (0.0-0.7) Basophils # (Auto) 0.1 x10^3/uL (0.0-0.2) Erythrocyte Sedimentation Rate > 130 (0-25) Sodium Level 133 mmol/L (136-145) Potassium Level 4.4 mmol/L (3.5-5.1) Chloride Level 100 mmol/L (98-107) Carbon Dioxide Level 28 mmol/L (21-32) Anion Gap 5 (6-14) Blood Urea Nitrogen 11 mg/dL (7-20) Creatinine 0.6 mg/dL (0.6-1.0) Estimated GFR (Cockcroft-Gault) 111.3 Glucose Level 230 mg/dL (70-99) Calcium Level 8.3 mg/dL (8.5-10.1) Glucose (Fingerstick) 249 mg/dL (70-99) Micro RUN DATE: 10/02/20 [facility] *LIVE* PAGE 1 RUN TIME: 929 Specimen Inquiry PATIENT: JONATAN SON ACCT: [id number] LOC: [address] [place] [address] U: [id number] AGE/SX: 40/F ROOM: 120 RE09/28/[address]: SAMM FOFANA MD : [id number] BED: A DIS: 09/29/20 STATUS: DIS IN TLOC: SPEC #: [id number] ABDOULAYE: 09/28/20 STATUS: COMP REQ #: [id number] RECD: 09/28/[address]: ALVARO GALVIN APRN SOURCE: BLOOD ENTR: 09/30/[address]: MELIZA ANDREW MD [facility] [address] [facility]: ALVARO NUNEZ DO ORDERED: BLOOD CULT-LC Procedure Result BLOOD CULTURE LC Final Final GRAM POSITIVE COCCI FINAL ID= [STAPHYLOCOCCUS AUREUS (MRSA)] STAPHYLOCOCCUS AUREUS (MRSA) ANTIMICROBIAL SUSCEPTIBILITY Final Comment POS IVELISSE TYPE 38 STAPHYLOCOCCUS AUREUS (MRSA) ANTIBIOTIC RESULT INTERPRETATION AZITHROMYCIN >4 R CLINDAMYCIN <=0.25 S CEFOXITIN SCREEN >4 POS CIPROFLOXACIN <=1 S CEFTAROLINE <=0.5 S DAPTOMYCIN 1 S ERYTHROMYCIN >4 R GENTAMICIN <=4 S INDUCIBLE CLINDAMYCIN <=4/0.5 NEG LINEZOLID 2 S LEVOFLOXACIN <=1 S OXACILLIN >2 R PENICILLIN >2 R* RIFAMPIN <=1 S TRIMETHOPRIM/SULFAMETHOXAZOLE <=0.5/9.5 S TETRACYCLINE <=4 S VANCOMYCIN 1 S Unless otherwise specified, Testing Performed by: [address] [address] For Inquires, the Physician may contact the Microbiology department at [phone] <Conclusion> The left ventricle is normal size. The left ventricular systolic function is normal and the ejection fraction is within normal range. The Ejection Fraction is 55-60%. Doppler and Color Flow revealed no significant aortic regurgitation. There is no significant aortic valvular stenosis. Doppler and Color-flow revealed trace mitral regurgitation. Doppler and Color Flow revealed trace tricuspid regurgitation with an estimated PAP of 32 mmHg. There is a trace to small pericardial effusion with no evidence of hemodynamic significance. Objective: Assessment: 1. Sepsis 2. MRSA Bacteremia, 1/4 bottles at [facility], POA source left buttock skin lesion Repeat BC neg here ECHO noted 3. Leukocytosis and Bandemia. Improving 4. Severe right upper extremity swelling and pain. CTA negative for abscess Improving though slowly 5. Right upper extremity cellulitis. Improving 6. Diabetic ketoacidosis. 7. Abnormal LFTs. 8. Protein calorie malnutrition. 9. Neck pain with underlying chronic neck pain and back pain. Improved 10. High CK at outside hospital. Here within normal limits 11. Left buttock skin lesion, improving. No evidence of abscess. 12. History of allergies to penicillin has tolerated ceftriaxone well at outside hospital 13. Pneumonia, right pleural effusion,?Parapneumonic effusion 14. Mild CHF 2D echo noted Plan: Plan of Care DC Rt IJ Continue Daptomycin,Cefepime,flagyl,doxycycline, linezolid Follow-up repeat blood cultures here negative so far No thoracocentesis per pulm Encouraged to elevate right upper extremity. Encourage PT and OT as tolerated Continue local care. Maintain aspiration precautions. C diff neg Discussed with mother at bedside Discussed with CECIL EDWARDS MD Oct 07, 2020 08:20
[2020-10-07] MEDS: LABETALOL HCL 100 MG TABLET. PO SCH ×2 (08:36→21:52)
[2020-10-07] MEDS: LINEZOLID 600 MG TABLET PO SCH ×2 (08:37→21:51)
[2020-10-07] MEDS: DOXYCYCLINE HYCLATE 100 MG TABLET PO SCH ×2 (08:37→21:51)
[2020-10-07] MEDS: oxyCODONE/APAP 5/325 1 TAB TABLET PO PRN ×3 (08:37→21:52)
[2020-10-07] MEDS: LACTOBACILLUS RHAMNOSUS GG 1 CAPSULE. PO SCH ×2 (08:37→21:51)
[2020-10-07] MEDS: NYSTATIN TOPICAL POWDER 15GM BOTTLE. TP SCH ×2 (08:44→22:07)
[2020-10-07] MEDS: INSULIN LISPRO 300 UNITS/3 ML VIAL. SQ SCH ×3 (08:57→20:13)
[2020-10-07] MEDS: DAPTOmycin (GENERIC) IVPB 490 MG in IV NORMAL SALINE 50ML 50 ML IV SCH (09:37)
--- NOTE | 2020-10-07 10:21 | NUR ---
SW following. Discussed with RN, pt from home with spouse, 2L (does not use oxygen at home), ada diet. Pt requiring multiple abx. Therapy recommending home. SW will continue to follow.
[2020-10-07 11:00] VITALS: BP 107/56
--- NOTE | 2020-10-07 13:20 | PDOC ---
PULMONARY PROGRESS NOTES DATE: 10/07/20 TIME: 13:20 Subjective Patient is resting comfortably on 2 L nasal cannula, NO SOA or cough improved swelling and erythema of RUE Vitals Vital Signs Date Time Temp Pulse Resp B/P (MAP) Pulse Ox O2 Delivery O2 Flow Rate FiO2 10/07/20 11:23 94 Nasal Cannula 2.0 10/07/20 11:00 97.9 98 18 107/56 (73) 97.9 ROS: No Nausea, No Chest Pain, No Abdominal Pain, No Increase Cough General: Alert, Oriented X4, No acute distress Lungs: Clear Cardiovascular: S1, S2 Abdomen: Soft, Non-tender, Other (obese) Neuro Exam: Alert Extremities: Other (1+edema lower, right arm swelling) Skin: Warm Labs Laboratory Tests Test 10/05/20 17:02 10/05/20 20:13 10/06/20 07:25 10/06/20 11:42 Glucose (Fingerstick) 212 mg/dL (70-99) 213 mg/dL (70-99) 238 mg/dL (70-99) 238 mg/dL (70-99) Test 10/06/20 13:02 10/06/20 17:02 10/06/20 20:54 10/07/20 05:55 Sodium Level 134 mmol/L (136-145) 133 mmol/L (136-145) Potassium Level 4.7 mmol/L (3.5-5.1) 4.4 mmol/L (3.5-5.1) Chloride Level 100 mmol/L (98-107) 100 mmol/L (98-107) Carbon Dioxide Level 28 mmol/L (21-32) 28 mmol/L (21-32) Anion Gap 6 (6-14) 5 (6-14) Blood Urea Nitrogen 13 mg/dL (7-20) 11 mg/dL (7-20) Creatinine 0.7 mg/dL (0.6-1.0) 0.6 mg/dL (0.6-1.0) Estimated GFR (Cockcroft-Gault) 93.2 111.3 Glucose Level 274 mg/dL (70-99) 230 mg/dL (70-99) Calcium Level 8.3 mg/dL (8.5-10.1) 8.3 mg/dL (8.5-10.1) Glucose (Fingerstick) 233 mg/dL (70-99) 203 mg/dL (70-99) White Blood Count 14.9 x10^3/uL (4.0-11.0) Red Blood Count 3.76 x10^6/uL (3.50-5.40) Hemoglobin 11.7 g/dL (12.0-15.5) Hematocrit 35.0 % (36.0-47.0) Mean Corpuscular Volume 93 fL (79-100) Mean Corpuscular Hemoglobin 31 pg (25-35) Mean Corpuscular Hemoglobin Concent 34 g/dL (31-37) Red Cell Distribution Width 13.7 % (11.5-14.5) Platelet Count 335 x10^3/uL (140-400) Neutrophils (%) (Auto) 80 % (31-73) Lymphocytes (%) (Auto) 13 % (24-48) Monocytes (%) (Auto) 6 % (0-9) Eosinophils (%) (Auto) 1 % (0-3) Basophils (%) (Auto) 0 % (0-3) Neutrophils # (Auto) 11.9 x10^3/uL (1.8-7.7) Lymphocytes # (Auto) 1.9 x10^3/uL (1.0-4.8) Monocytes # (Auto) 0.9 x10^3/uL (0.0-1.1) Eosinophils # (Auto) 0.1 x10^3/uL (0.0-0.7) Basophils # (Auto) 0.1 x10^3/uL (0.0-0.2) Erythrocyte Sedimentation Rate > 130 (0-25) Test 10/07/20 07:21 10/07/20 11:25 Glucose (Fingerstick) 249 mg/dL (70-99) 261 mg/dL (70-99) Laboratory Tests Test 10/06/20 17:02 10/06/20 20:54 10/07/20 05:55 10/07/20 07:21 Glucose (Fingerstick) 233 mg/dL (70-99) 203 mg/dL (70-99) 249 mg/dL (70-99) White Blood Count 14.9 x10^3/uL (4.0-11.0) Red Blood Count 3.76 x10^6/uL (3.50-5.40) Hemoglobin 11.7 g/dL (12.0-15.5) Hematocrit 35.0 % (36.0-47.0) Mean Corpuscular Volume 93 fL (79-100) Mean Corpuscular Hemoglobin 31 pg (25-35) Mean Corpuscular Hemoglobin Concent 34 g/dL (31-37) Red Cell Distribution Width 13.7 % (11.5-14.5) Platelet Count 335 x10^3/uL (140-400) Neutrophils (%) (Auto) 80 % (31-73) Lymphocytes (%) (Auto) 13 % (24-48) Monocytes (%) (Auto) 6 % (0-9) Eosinophils (%) (Auto) 1 % (0-3) Basophils (%) (Auto) 0 % (0-3) Neutrophils # (Auto) 11.9 x10^3/uL (1.8-7.7) Lymphocytes # (Auto) 1.9 x10^3/uL (1.0-4.8) Monocytes # (Auto) 0.9 x10^3/uL (0.0-1.1) Eosinophils # (Auto) 0.1 x10^3/uL (0.0-0.7) Basophils # (Auto) 0.1 x10^3/uL (0.0-0.2) Erythrocyte Sedimentation Rate > 130 (0-25) Sodium Level 133 mmol/L (136-145) Potassium Level 4.4 mmol/L (3.5-5.1) Chloride Level 100 mmol/L (98-107) Carbon Dioxide Level 28 mmol/L (21-32) Anion Gap 5 (6-14) Blood Urea Nitrogen 11 mg/dL (7-20) Creatinine 0.6 mg/dL (0.6-1.0) Estimated GFR (Cockcroft-Gault) 111.3 Glucose Level 230 mg/dL (70-99) Calcium Level 8.3 mg/dL (8.5-10.1) Test 10/07/20 11:25 Glucose (Fingerstick) 261 mg/dL (70-99) Medications Active Scripts Medications Dose Route/Sig Max Daily Dose Days Date Category Zofran (Ondansetron Hcl) 4 Mg Tablet 4 Mg IVP PRN Q6HRS PRN 09/29/20 Reported Humalog (Insulin Lispro) 100 Unit/1 Ml Cartridge 20 Unit SQ QIDACHS 09/29/20 Reported Lantus Solostar (Insulin Glargine,Hum.rec.anlog) 100 Unit/1 Ml Insuln.pen 20 Unit SQ QHS 09/29/20 Reported Comments Chest x-ray reviewed, right infiltrate no change Impression . 1. Acute hypoxic respiratory failure secondary to right lung pneumonia, and small right-sided pleural effusion , likely parapneumonic. 2. Abnormal CT chest done on at [facility] with no evidence of central pulmonary emboli, but the contrast was poor and unable to see segmental and subsegmental pulmonary arteries. She has some asymmetric right septal thickening and also a right upper lobe bilobed opacity 1.4 cm in size. Now, her chest x-ray has shown increasing pleural effusion and pleural thickening and associated infiltrates. CT of right arm along with CT of the chest was reviewed dated 09/30. She has right lung infiltrate with effusion is small. 3. No significant tobacco history. 4. Right u ext cellulitis. Infectious Disease is following. 5. MRSA bacteremia, per ID 6. Encephalopathy multifactorial--resolved 7. Right upper extremity cellulitis--improving 8. Abnormal LFTs 9. Protein malnutrition Plan . PLAN: Continue supplemental oxygen to keep oxygen saturations greater than 92%, currently on [address] chest reviewed, no need for thoracentesis at this point in time I-S at bedside, encourage hourly use Will need repeat CT of chest in 6 to 8 weeks Continue PPN for nutritional support and additional to p.o. intake, encourage p.o. intake Follow infectious disease recommendations in regards to antibiotics, follow cultures,----MRSA bacteremia-- repeat BC NGTD DVT/GI prophylaxis Discussed with JAYSHREE COSTA MD Oct 07, 2020 13:20
[2020-10-07 15:00] VITALS: BP 127/78
--- NOTE | 2020-10-07 16:27 | NUR ---
Patient consult for Dr. Patiño was called in by this RN. Spoke with Yovanny TROY.
[2020-10-07 20:16] VITALS: BP 117/58
[2020-10-07] MEDS: DULoxetine HCL 30 MG CAPSULE.DR PO SCH (21:51)
[2020-10-07] MEDS: GABAPENTIN 300 MG CAPSULE. PO SCH (21:52)
[2020-10-07] MEDS: INSULIN GLARGINE SYRINGE. SQ SCH (22:07)
[2020-10-07 23:10] VITALS: BP 117/69
[2020-10-08] MEDS: AMINO AC 3%/ELECTROLYTE/GLYCER 1,000 ML IV SCH ×2 (00:21→06:10)
[2020-10-08] MEDS: metroNIDAZOLE 500 MG TABLET PO SCH ×2 (00:33→05:12)
[2020-10-08] MEDS: INSULIN LISPRO 300 UNITS/3 ML VIAL. SQ SCH ×5 (00:48→22:01)
[2020-10-08 03:50] VITALS: BP 113/64
--- NOTE | 2020-10-08 04:38 | PN ---
DATE: 10/07/2020 SUBJECTIVE: The patient is resting, slightly propped up in bed in no apparent distress. She continued to have pain, weakness on the right upper extremity. She continued to have poor appetite. Her pain is much better controlled. PHYSICAL EXAMINATION: GENERAL: When I examined her, she was pale. No jaundice, cyanosis or thyromegaly, jugular distention, no lower limb edema. VITAL SIGNS: Heart rate was 98, blood pressure 107/56, temperature 97.9, respiratory rate was 18 and oxygen saturation was 95% on 2 liters oxygen. HEAD, EYES, EARS, NOSE AND THROAT: Normocephalic, atraumatic. NECK: Supple. HEART: Normal first and second heart sounds. No gallop or murmur. CHEST: Clear to auscultation, no crepitation or rhonchi. ABDOMEN: Distended, soft, nontender. NEUROLOGIC: She was awake, alert, responding appropriately. She is actually able to ambulate and move from get out of the bed to the bedside to the chair. She is able to move her right upper extremity ____ continued to be markedly swollen. Her intake over the last 24 hours was 2750, output was 3265. LABORATORY DATA: This morning showed a white cell count is down to 14,900, hemoglobin 11.7, hematocrit 35, MCV 93, platelet count 335,000. Her sedimentation rate continued to be high at more than 130 mm per hour. Her chemistry showed a serum sodium 133, potassium 4.4, chloride 100, bicarbonate 28, anion gap of 5, BUN 11, creatinine 0.6. Estimated GFR was 111, blood sugar was 130 and calcium was 8.3. ASSESSMENT: 1. Acute hypoxic respiratory failure, improving and her oxygen requirement is down from 6 to 1-2 liters now. 2. Community-acquired pneumonia with questionable right-sided pleural effusion versus parapneumonic effusion. 3. Markedly swollen right upper extremity, possible cellulitis. However, venous Doppler ultrasound was negative for deep vein thrombosis. CT scan showed no evidence of drainable abscess. 4. Patient has an abscess in the left gluteal area. 5. The patient has poorly controlled type 2 diabetes. 6. Hypertension. 7. Hyperlipidemia. 8. Fatty liver. 9. Depression and anxiety. 10. Peripheral neuropathy. 11. Hypokalemia, has resolved. 12. Severe protein calorie malnutrition. Serum albumin is only 1.5 g/dL. PLAN: Continue with IV antibiotic. She is now on linezolid, Flagyl, doxycycline and daptomycin as well as cefepime. Continue with pain management. Continue to monitor blood sugar and adjust insulin as needed. Continue with TPN for nutritional support. Encourage oral intake. Continue with physical and occupational therapy. [place] DR: Kali TID: [id number]
[2020-10-08] MEDS: CEFEPIME HCL IV Push 2 GM VIAL. IVP SCH (05:13)
[2020-10-08 06:06] LABS: CALCIUM 8.6 mg/dL (8.5-10.1); CREATININE 0.7 mg/dL (0.6-1.0); GFR 93.2; POTASSIUM 4.2 mmol/L (3.5-5.1)
[2020-10-08 07:00] VITALS: BP 127/70
[2020-10-08] MEDS: IPRATROPIUM BROMIDE 0.5 MG/2.5 ML NEBU. NEB SCH ×4 (07:38→20:29)
--- NOTE | 2020-10-08 08:34 | PDOC ---
PULMONARY PROGRESS NOTES DATE: 10/08/20 TIME: 08:34 Subjective now on 1.5 liters NC NO SOA or cough no overnight events Vitals Vital Signs Date Time Temp Pulse Resp B/P (MAP) Pulse Ox O2 Delivery O2 Flow Rate FiO2 10/08/20 07:38 93 Nasal Cannula 2.0 10/08/20 03:50 98.2 99 16 113/64 (80) 98.2 ROS: No Nausea, No Chest Pain, No Abdominal Pain, No Increase Cough General: Alert, Oriented X4, No acute distress Lungs: Clear Cardiovascular: S1, S2 Abdomen: Soft, Non-tender, Other (obese) Neuro Exam: Alert Extremities: Other (1+edema lower, right arm swelling) Skin: Warm Labs Laboratory Tests Test 10/06/20 11:42 10/06/20 13:02 10/06/20 17:02 10/06/20 20:54 Glucose (Fingerstick) 238 mg/dL (70-99) 233 mg/dL (70-99) 203 mg/dL (70-99) Sodium Level 134 mmol/L (136-145) Potassium Level 4.7 mmol/L (3.5-5.1) Chloride Level 100 mmol/L (98-107) Carbon Dioxide Level 28 mmol/L (21-32) Anion Gap 6 (6-14) Blood Urea Nitrogen 13 mg/dL (7-20) Creatinine 0.7 mg/dL (0.6-1.0) Estimated GFR (Cockcroft-Gault) 93.2 Glucose Level 274 mg/dL (70-99) Calcium Level 8.3 mg/dL (8.5-10.1) Test 10/07/20 05:55 10/07/20 07:21 10/07/20 11:25 10/07/20 16:24 White Blood Count 14.9 x10^3/uL (4.0-11.0) Red Blood Count 3.76 x10^6/uL (3.50-5.40) Hemoglobin 11.7 g/dL (12.0-15.5) Hematocrit 35.0 % (36.0-47.0) Mean Corpuscular Volume 93 fL (79-100) Mean Corpuscular Hemoglobin 31 pg (25-35) Mean Corpuscular Hemoglobin Concent 34 g/dL (31-37) Red Cell Distribution Width 13.7 % (11.5-14.5) Platelet Count 335 x10^3/uL (140-400) Neutrophils (%) (Auto) 80 % (31-73) Lymphocytes (%) (Auto) 13 % (24-48) Monocytes (%) (Auto) 6 % (0-9) Eosinophils (%) (Auto) 1 % (0-3) Basophils (%) (Auto) 0 % (0-3) Neutrophils # (Auto) 11.9 x10^3/uL (1.8-7.7) Lymphocytes # (Auto) 1.9 x10^3/uL (1.0-4.8) Monocytes # (Auto) 0.9 x10^3/uL (0.0-1.1) Eosinophils # (Auto) 0.1 x10^3/uL (0.0-0.7) Basophils # (Auto) 0.1 x10^3/uL (0.0-0.2) Erythrocyte Sedimentation Rate > 130 (0-25) Sodium Level 133 mmol/L (136-145) Potassium Level 4.4 mmol/L (3.5-5.1) Chloride Level 100 mmol/L (98-107) Carbon Dioxide Level 28 mmol/L (21-32) Anion Gap 5 (6-14) Blood Urea Nitrogen 11 mg/dL (7-20) Creatinine 0.6 mg/dL (0.6-1.0) Estimated GFR (Cockcroft-Gault) 111.3 Glucose Level 230 mg/dL (70-99) Calcium Level 8.3 mg/dL (8.5-10.1) Glucose (Fingerstick) 249 mg/dL (70-99) 261 mg/dL (70-99) 193 mg/dL (70-99) Test 10/07/20 20:56 10/08/20 00:38 10/08/20 05:30 10/08/20 07:49 Glucose (Fingerstick) 263 mg/dL (70-99) 242 mg/dL (70-99) 222 mg/dL (70-99) Sodium Level 137 mmol/L (136-145) Potassium Level 4.2 mmol/L (3.5-5.1) Chloride Level 101 mmol/L (98-107) Carbon Dioxide Level 28 mmol/L (21-32) Anion Gap 8 (6-14) Blood Urea Nitrogen 14 mg/dL (7-20) Creatinine 0.7 mg/dL (0.6-1.0) Estimated GFR (Cockcroft-Gault) 93.2 Glucose Level 228 mg/dL (70-99) Calcium Level 8.6 mg/dL (8.5-10.1) Laboratory Tests Test 10/07/20 11:25 10/07/20 16:24 10/07/20 20:56 10/08/20 00:38 Glucose (Fingerstick) 261 mg/dL (70-99) 193 mg/dL (70-99) 263 mg/dL (70-99) 242 mg/dL (70-99) Test 10/08/20 05:30 10/08/20 07:49 Sodium Level 137 mmol/L (136-145) Potassium Level 4.2 mmol/L (3.5-5.1) Chloride Level 101 mmol/L (98-107) Carbon Dioxide Level 28 mmol/L (21-32) Anion Gap 8 (6-14) Blood Urea Nitrogen 14 mg/dL (7-20) Creatinine 0.7 mg/dL (0.6-1.0) Estimated GFR (Cockcroft-Gault) 93.2 Glucose Level 228 mg/dL (70-99) Calcium Level 8.6 mg/dL (8.5-10.1) Glucose (Fingerstick) 222 mg/dL (70-99) Medications Active Scripts Medications Dose Route/Sig Max Daily Dose Days Date Category Zofran (Ondansetron Hcl) 4 Mg Tablet 4 Mg IVP PRN Q6HRS PRN 09/29/20 Reported Humalog (Insulin Lispro) 100 Unit/1 Ml Cartridge 20 Unit SQ QIDACHS 09/29/20 Reported Lantus Solostar (Insulin Glargine,Hum.rec.anlog) 100 Unit/1 Ml Insuln.pen 20 Unit SQ QHS 09/29/[address] chest IMPRESSION: 1. No significant interval change in bilateral airspace disease. There is a moderate size loculated pleural effusion on the right, unchanged. 2. Mediastinal lymphadenopathy, also stable. 3. No new abnormality. Impression . 1. Acute hypoxic respiratory failure secondary to right lung pneumonia, and small right-sided pleural effusion , likely parapneumonic. 2. Abnormal CT chest done on at [facility] with no evidence of central pulmonary emboli, but the contrast was poor and unable to see segmental and subsegmental pulmonary arteries. She has some asymmetric right septal thickening and also a right upper lobe bilobed opacity 1.4 cm in size. Now, her chest x-ray has shown increasing pleural effusion and pleural thickening and associated infiltrates. CT of right arm along with CT of the chest was reviewed dated 09/30. She has right lung infiltrate with effusion is small. 3. No significant tobacco history. 4. Right u ext cellulitis. Infectious Disease is following. 5. MRSA bacteremia, per ID 6. Encephalopathy multifactorial--resolved 7. Right upper extremity cellulitis--improving 8. Abnormal LFTs 9. Protein malnutrition Plan . PLAN: Continue supplemental oxygen to keep oxygen saturations greater than 92%, currently on [address] chest 10/08/20 reviewed, no significant change in loculated effusion, discussed with ID and possible need for thoracentesis I-S at bedside, encourage hourly use Will need repeat CT of chest in 6 to 8 weeks Follow infectious disease recommendations in regards to antibiotics, follow cultures,----MRSA bacteremia-- repeat BC NGTD DVT/GI prophylaxis Discussed with RN, Infectious Disease and JAYSHREE Mcdermott MD Oct 08, 2020 08:34
[2020-10-08] MEDS: LACTOBACILLUS RHAMNOSUS GG 1 CAPSULE. PO SCH ×2 (08:40→21:48)
[2020-10-08] MEDS: DOXYCYCLINE HYCLATE 100 MG TABLET PO SCH (08:40)
[2020-10-08] MEDS: oxyCODONE/APAP 5/325 1 TAB TABLET PO PRN ×3 (08:40→22:22)
[2020-10-08] MEDS: LINEZOLID 600 MG TABLET PO SCH ×2 (08:40→21:47)
[2020-10-08] MEDS: LABETALOL HCL 100 MG TABLET. PO SCH ×2 (08:41→21:47)
[2020-10-08] MEDS: NYSTATIN TOPICAL POWDER 15GM BOTTLE. TP SCH ×2 (08:52→22:02)
[2020-10-08] MEDS: DAPTOmycin (GENERIC) IVPB 490 MG in IV NORMAL SALINE 50ML 50 ML IV SCH (10:49)
[2020-10-08 11:00] VITALS: BP 109/65
--- NOTE | 2020-10-08 11:12 | NUR ---
SW following. Discussed with RN, pt may need possible wound debridement per RN. Possibly stopping PPN today as pt's appetite has improved. Pt still on IV abx. Therapy recommending home, then now recommending Acute Rehab. SW will check how pt does with therapy today to determine if pt really needs acute rehab or not. Pt not ready for discharge. SW will continue to follow.
--- NOTE | 2020-10-08 11:36 | RAD ---
CT chest without contrast dated 10/08/2020. Comparison made to 10/04/2020. CLINICAL INDICATION: Chest pain. TECHNIQUE: There is axial imaging of the chest was performed without the administration of intravenous contrast. One or more of the following individualized dose reduction techniques were utilized for this examinat ion: 1. Automated exposure control 2. Adjustment of the mA and/or kV according to patient size 3. Use of iterative reconstruction technique FINDINGS: Heart size is upper limits of normal. No pericardial effusion. Scattered coronary calcifications. The re are mildly enlarged mediastinal lymph nodes, similar slightly increased from prior study. Lymph no de the precarinal region measures 11 mm short axis. Lymph nodes in the subcarinal region measures 1.3 cm. No axillary or supraclavicular lymphadenopathy. The thyroid gland is unremarkable. Central airways are patent. There is consolidation of the right lower lobe with air bronchograms, sim ilar to prior study. There is a moderate size pleural effusion on the right is partially loculated, u nchanged. Prominent linear markings in the right upper lobe and right middle lobe, similar to prior s tudy. There is also some patchy increased density in the left lower lobe, not significantly changed. No pneumothorax. Limited images of the upper abdomen are unremarkable. No acute bony abnormality. Multilevel spondylos is. IMPRESSION: 1. No significant interval change in bilateral airspace disease. There is a moderate size loculated p leural effusion on the right, unchanged. 2. Mediastinal lymphadenopathy, also stable. 3. No new abnormality. Electronically signed by: Juan Millan MD (10/08/2020 11:33 AM) [facility]
--- NOTE | 2020-10-08 11:42 | PDOC ---
Infectious Disease Note Subjective: Subjective Patient complains of right-sided chest pain. Also awaiting wound team evaluation for draining abscess on the buttock Right upper extremity swelling, redness and pain are improving though very slowly Denies any fever, nausea, vomiting, diarrhea Underwent CT Chest earlier this am Mother at bedside Vital Signs: Vital Signs Vital Signs Date Time Temp Pulse Resp B/P (MAP) Pulse Ox O2 Delivery O2 Flow Rate FiO2 10/08/20 10:49 Nasal Cannula 2.0 10/08/20 08:41 99 113/64 10/08/20 07:38 93 10/08/20 07:00 97.6 18 97.6 Physical Exam: PHYSICAL EXAM GENERAL: Alert, oriented x 3, sitting in chair comfortably, in no acute distress. Looks better HEENT: Normocephalic, atraumatic. Anicteric. No thrush. Oral mucosa dry on O2 by nasal cannula. NECK: Supple, no JVD, no lymphadenopathy. Right neck central line clean. LUNGS: Poor inspiratory effort, no wheezing. Decreased breath sounds at the bases. HEART: S1, S2, No murmurs. ABDOMEN: Soft, nontender, nondistended, no rebound or guarding. EXTREMITIES: Right upper extremity swelling extending from hand to shoulder, mild redness, diffuse erythema and tenderness though improving, Radial pulse palpable. Decreased range of motion due to extreme swelling. No wrist, elbow or shoulder Effusion noted DERMATOLOGIC: No other open skin wounds noted. No generalized rash except for above. Dry scab present over the left cheek and right forearm. No abscess, no fluctuance. NEUROLOGIC: Alert, oriented x 3, grossly nonfocal. PSYCHIATRIC: Cooperative, calm, somewhat flat affect. Medications: Inpatient Meds: Medications reviewed. Labs: Lab Laboratory Tests Test 10/07/20 16:24 10/07/20 20:56 10/08/20 00:38 10/08/20 05:30 Glucose (Fingerstick) 193 mg/dL (70-99) 263 mg/dL (70-99) 242 mg/dL (70-99) Sodium Level 137 mmol/L (136-145) Potassium Level 4.2 mmol/L (3.5-5.1) Chloride Level 101 mmol/L (98-107) Carbon Dioxide Level 28 mmol/L (21-32) Anion Gap 8 (6-14) Blood Urea Nitrogen 14 mg/dL (7-20) Creatinine 0.7 mg/dL (0.6-1.0) Estimated GFR (Cockcroft-Gault) 93.2 Glucose Level 228 mg/dL (70-99) Calcium Level 8.6 mg/dL (8.5-10.1) Test 10/08/20 07:49 Glucose (Fingerstick) 222 mg/dL (70-99) Micro RUN DATE: 10/02/20 [facility] *LIVE* PAGE 1 RUN TIME: 0930 Specimen Inquiry PATIENT: JONATAN SON ACCT: [id number] LOC: [address] [place] [address] U: [id number] AGE/SX: 40/F ROOM: 120 RE09/28/[address]: SAMM FOFANA MD : [id number] BED: A DIS: 09/29/20 STATUS: DIS IN TLOC: SPEC #: [id number] ABDOULAYE: 09/28/20-1813 STATUS: PHILL HOOKER #: [id number] RECD: 09/28/[address] [facility] [address]: ALVARO GALVIN APRN SOURCE: BLOOD ENTR: 09/30/20 [facility] DR: MELIZA ANDREW MD [facility]: ALVARO NUNEZ DO ORDERED: BLOOD CULT-LC Procedure Result BLOOD CULTURE LC Final Final GRAM POSITIVE COCCI FINAL ID= [STAPHYLOCOCCUS AUREUS (MRSA)] STAPHYLOCOCCUS AUREUS (MRSA) ANTIMICROBIAL SUSCEPTIBILITY Final Comment POS IVELISSE TYPE 38 STAPHYLOCOCCUS AUREUS (MRSA) ANTIBIOTIC RESULT INTERPRETATION AZITHROMYCIN >4 R CLINDAMYCIN <=0.25 S CEFOXITIN SCREEN >4 POS CIPROFLOXACIN <=1 S CEFTAROLINE <=0.5 S DAPTOMYCIN 1 S ERYTHROMYCIN >4 R GENTAMICIN <=4 S INDUCIBLE CLINDAMYCIN <=4/0.5 NEG LINEZOLID 2 S LEVOFLOXACIN <=1 S OXACILLIN >2 R PENICILLIN >2 R* RIFAMPIN <=1 S TRIMETHOPRIM/SULFAMETHOXAZOLE <=0.5/9.5 S TETRACYCLINE <=4 S VANCOMYCIN 1 S Unless otherwise specified, Testing Performed by: [address] [address] For Inquires, the Physician may contact the Microbiology department at [phone] <Conclusion> The left ventricle is normal size. The left ventricular systolic function is normal and the ejection fraction is within normal range. The Ejection Fraction is 55-60%. Doppler and Color Flow revealed no significant aortic regurgitation. There is no significant aortic valvular stenosis. Doppler and Color-flow revealed trace mitral regurgitation. Doppler and Color Flow revealed trace tricuspid regurgitation with an estimated PAP of 32 mmHg. There is a trace to small pericardial effusion with no evidence of hemodynamic significance. Objective: Assessment: 1. Sepsis 2. MRSA Bacteremia, 05/10 bottles at [facility], A source left buttock skin lesion Repeat BC neg here ECHO noted 3. Leukocytosis and Bandemia. Improving 4. Severe right upper extremity swelling and pain. CTA negative for abscess Improving though slowly 5. Right upper extremity cellulitis. Improving 6. Diabetic ketoacidosis. 7. Abnormal LFTs. 8. Protein calorie malnutrition. 9. Neck pain with underlying chronic neck pain and back pain. Improved 10. High CK at outside hospital. Here within normal limits 11. Left buttock skin lesion, improving. No evidence of abscess. 12. History of allergies to penicillin has tolerated ceftriaxone well at outside hospital 13. Pneumonia, RT Loculated Parapneumonic effusion 14. Mild CHF 2D echo noted Plan: Plan of Care DC Rt IJ DC Daptomycin,Cefepime,flagyl,doxycycline, Cont linezolid Start Ceftaroline. Pt has tolerated Cefepime well. Follow-up repeat blood cultures here negative so far May nee dthoracocentesis Encouraged to elevate right upper extremity. Encourage PT and OT as tolerated Continue local care. Maintain aspiration precautions. C diff neg Discussed with mother at bedside Discussed with CECIL EDWARDS MD Oct 08, 2020 11:42
[2020-10-08] MEDS: CEFTAROLINE FOSAMIL 600 MG in IV NORMAL SALINE 250ML 250 ML IV SCH ×2 (14:29→21:49)
[2020-10-08 15:00] VITALS: BP 113/65
[2020-10-08 15:26] LABS: BASO # 0.1 x10^3/uL (0.0-0.2); BASO % 1 % (0-3); EOS # 0.1 x10^3/uL (0.0-0.7); EOS % 1 % (0-3); HEMATOCRIT 32.1 % (36.0-47.0); HEMOGLOBIN 10.9 g/dL (12.0-15.5); LYMPH # 1.7 x10^3/uL (1.0-4.8); LYMPH % 17 % (24-48); MEAN CORPUSCULAR HEMOGLOBIN 32 pg (25-35); MEAN CORPUSCULAR HGB CONC 34 g/dL (31-37); MEAN CORPUSCULAR VOLUME 93 fL (79-100); MONO # 0.9 x10^3/uL (0.0-1.1); MONO % 9 % (0-9); NEUT # 7.4 x10^3/uL (1.8-7.7); NEUT % 73 % (31-73); PLATELET COUNT 359 x10^3/uL (140-400); RED BLOOD COUNT 3.46 x10^6/uL (3.50-5.40); RED CELL DISTRIBUTION WIDTH 13.5 % (11.5-14.5); WHITE BLOOD COUNT 10.2 x10^3/uL (4.0-11.0)
--- NOTE | 2020-10-08 15:45 | NUR ---
Wound Care Wound Type/Assessment: Pt seen for wound care consultation re: a left buttock wound, pt thinks possibly a spider bite. Pt seen with Dr. Doty for possible bedside debridement, wound assessed, cleaned and depth cultured. Wound bed is dusky red, sloughy, with necrotic tissue present, measuring over 3 cm in depth, draining purulent, serosanguinous drainage. Pt stated she has had these before. Treatment Recommendations/Plan: Dr. Doty ordered /" Iodoform packing, cover with gauze and tape, daily, and prn when soiled. Education provided: to pt and RN re: POC, and pt instructed not to get shower water into wound, pt v/u. Offloading surface/device: frequent repositioning and wedge Recommended Referrals/Tests: wound culture sent Discharge Recommendations for dressings: will f/u with pt on Sunday for re-evaluation.
[2020-10-08 15:49] LABS: ALBUMIN 1.5 g/dL (3.4-5.0); ALBUMIN/GLOBULIN RATIO 0.3 (1.0-1.7); CALCIUM 8.3 mg/dL (8.5-10.1); CREATININE 0.8 mg/dL (0.6-1.0); GFR 79.9; POTASSIUM 3.8 mmol/L (3.5-5.1); TOTAL BILIRUBIN 0.5 mg/dL (0.2-1.0); TOTAL PROTEIN 6.5 g/dL (6.4-8.2)
--- NOTE | 2020-10-08 16:32 | PDOC2 ---
Chief Complaint: Chief Complaint: Right buttock wound Problems: (1) Bacteremia due to methicillin resistant Staphylococcus aureus (2) Abscess Vital Signs: Vital Signs: Vital Signs Date Time Temp Pulse Resp B/P (MAP) Pulse Ox O2 Delivery O2 Flow Rate FiO2 10/07/20 07:00 97.9 95 18 116/73 (87) 95 Room Air 97.9 10/07/20 07:36 2.0 Vital Signs Date Time Temp Pulse Resp B/P (MAP) Pulse Ox O2 Delivery O2 Flow Rate FiO2 10/08/20 15:29 93 Nasal Cannula 2.0 10/08/20 15:00 97.9 100 18 113/65 (81) 97.9 Allergies: Allergies: Allergies Coded Allergies Type Severity Reaction Last Updated Verified Penicillins Allergy Intermediate Nausea and Vomiting 09/29/20 Yes Sulfa (Sulfonamide Antibiotics) Allergy Intermediate RASH, Nausea and Vomiting 10/01/20 Yes I S O L A T I O N *CONTACT* Allergy Unknown 10/05/20 Yes Medications: Home Meds Reported Medications Ondansetron Hcl (ZOFRAN) 4 Mg Tablet, 4 MG IVP PRN Q6HRS PRN for NAUSEA, TAB 09/29/20 Insulin Lispro (HUMALOG) 100 Unit/1 Ml Cartridge, 20 UNIT SQ QIDACHS for sugar, EACH 09/29/20 Insulin Glargine,Hum.rec.anlog (LANTUS SOLOSTAR) 100 Unit/1 Ml Insuln.pen, 20 UNIT SQ QHS for sugar, #15 ML 5 Refills 09/29/20 Date of Onset Ms. Leija is a 40 yo diabetic female pt admitted 09/30/20 with community acquired pneumonia with possible right-sided pleural effusion versus parapneumonic effusion. She developed acute hypoxic respiratory failure. She has a hx of staph skin infections and abscesses. Prior to admission she had a red lump on her left buttock with no drainage. Wound Care is consulted to evaluate a larger, draining wound at this site. She also has markedly swollen right upper extremity with negative venous Doppler ultrasound. CT scan showed no evidence of abscess of RUE. Physical Exam - Wound #1 Wound Exam Location of Modifier: Right Body Site: Buttocks Associated Signs/Symptoms: Pain, Drainage Drainage Amount: Scant Drainage Description: Serosanguineous Odor: None/Absent Surrounding Tissue Appearance: indurated A/P Right buttock abscess in pt with hx of MRSA skin infections and with MRSA bacteremia. Her diabetes is poorly controlled with blood sugars in the 200s and 300s during this admission. Serum albumin is only 1.5 g/dL. Treatment will be compromised by her hyperglycemia and severe protein malnutrition. Culture specimen sent to lab. Iodoform gauze packing. Change q 3 days or prn. Continue current antibiotics. MATILDE WICK MD Oct 08, 2020 16:32
[2020-10-08 19:00] VITALS: BP 111/61
[2020-10-08] MEDS: DULoxetine HCL 30 MG CAPSULE.DR PO SCH (21:48)
[2020-10-08] MEDS: GABAPENTIN 300 MG CAPSULE. PO SCH (21:48)
[2020-10-08] MEDS: INSULIN GLARGINE SYRINGE. SQ SCH (22:01)
--- NOTE | 2020-10-08 22:55 | PN ---
DATE: 10/08/2020 SUBJECTIVE: The patient is resting slightly propped up in bed, in no apparent respiratory distress. She has continued to complain of worsening right-sided chest pain. OBJECTIVE: GENERAL: When I examined her, she looked pale, but no jaundice, cyanosis or thyromegaly. No jugular venous distention, no lower limb edema. VITAL SIGNS: Heart rate was 99, blood pressure is 113/67, temperature 97.6, respiratory rate was 18 and oxygen saturation was 93% on 2 liters of oxygen by nasal cannula. HEAD, EYES, EARS, NOSE AND THROAT: Normocephalic, atraumatic. NECK: Supple. HEART: Showed normal first and second heart sounds, no gallop, murmur. CHEST: Shows central trachea, equal bilateral expansion, air entry, vesicular breath sounds with no crepitation or rhonchi anteriorly. She had dull percussion note and absent breath sounds posteriorly. I could not appreciate any rhonchi. ABDOMEN: Distended, soft, nontender. NEUROLOGIC: She was grossly intact. The patient is able now to ambulate, although her ability to move her right upper extremity continued to be not yet back to its normal. Her intake was 1900. No output. LABORATORY DATA: As of yesterday, her white cell count was 14,900, hemoglobin 12, hematocrit 35, MCV 93, and platelet count of 335,000. As of this morning, her chemistry, her serum sodium was 137, potassium 4.2, chloride 101, bicarbonate 28, anion gap of 8, BUN 14, creatinine 0.7. Estimated GFR was 93 mL per minute. Her glucose was 228 and calcium was 8.6. All her cultures are so far negative. ASSESSMENT: 1. Acute hypoxic respiratory failure, improving. Her oxygen requirement is down from 6 to 1-2 liters. 2. Community-acquired pneumonia with questionable right-sided pleural effusion versus parapneumonic effusion. 3. Markedly swollen right upper extremity with possible cellulitis; however, venous Doppler ultrasound was negative for deep vein thrombosis. CT scan showed no evidence of drainable abscesses. 4. The patient has an abscess in her left gluteal area. 5. The patient has poorly controlled type 2 diabetes mellitus. 6. Hypertension. 7. Hyperlipidemia. 8. Fatty liver. 9. Depression and anxiety. 10. Peripheral neuropathy. 11. Hypokalemia that has resolved. 12. Severe protein calorie malnutrition, serum albumin of 1.5 g/dL. PLAN: Continue with IV antibiotic in the form of linezolid, metronidazole, doxycycline and daptomycin. As the patient's oral intake has improved, I have discontinued her TPN. Meanwhile, continue with all other medication. Continue to monitor blood sugar and adjust insulin as needed. Continue with physical and occupational therapy. MARCOS DR: Kali TID: [id number]
[2020-10-08 23:00] VITALS: BP 119/67
[2020-10-09 03:00] VITALS: BP 103/57
[2020-10-09 07:00] VITALS: BP 126/66
--- NOTE | 2020-10-09 07:27 | PDOC ---
Infectious Disease Note Subjective: Subjective Patient feels much better today Right-sided chest pain is improving Buttock wound is improving Right upper extremity swelling, redness and pain are improving though very slowly Denies any fever, nausea, vomiting, diarrhea RN at bedside Vital Signs: Vital Signs Vital Signs Date Time Temp Pulse Resp B/P (MAP) Pulse Ox O2 Delivery O2 Flow Rate FiO2 10/09/20 03:00 98.1 99 18 103/57 (72) 95 Nasal Cannula 2.0 98.1 Physical Exam: PHYSICAL EXAM GENERAL: Alert, oriented x 3, sitting in chair comfortably, in no acute distress. Looks better HEENT: Normocephalic, atraumatic. Anicteric. No thrush. Oral mucosa dry on O2 by nasal cannula. NECK: Supple, no JVD, no lymphadenopathy. Right neck central line clean. LUNGS: Poor inspiratory effort, no wheezing. Decreased breath sounds at the bases. HEART: S1, S2, No murmurs. ABDOMEN: Soft, nontender, nondistended, no rebound or guarding. EXTREMITIES: Right upper extremity swelling extending from hand to shoulder, mild redness, diffuse erythema and tenderness though improving, Radial pulse palpable. Decreased range of motion due to extreme swelling. No wrist, elbow or shoulder Effusion noted DERMATOLOGIC: No other open skin wounds noted. No generalized rash except for above. Dry scab present over the left cheek and right forearm. No abscess, no fluctuance. NEUROLOGIC: Alert, oriented x 3, grossly nonfocal. PSYCHIATRIC: Cooperative, calm, somewhat flat affect. Medications: Inpatient Meds: Medications reviewed. Labs: Lab Laboratory Tests Test 10/08/20 07:49 10/08/20 11:45 10/08/20 15:15 10/08/20 16:52 Glucose (Fingerstick) 222 mg/dL (70-99) 228 mg/dL (70-99) 195 mg/dL (70-99) White Blood Count 10.2 x10^3/uL (4.0-11.0) Red Blood Count 3.46 x10^6/uL (3.50-5.40) Hemoglobin 10.9 g/dL (12.0-15.5) Hematocrit 32.1 % (36.0-47.0) Mean Corpuscular Volume 93 fL (79-100) Mean Corpuscular Hemoglobin 32 pg (25-35) Mean Corpuscular Hemoglobin Concent 34 g/dL (31-37) Red Cell Distribution Width 13.5 % (11.5-14.5) Platelet Count 359 x10^3/uL (140-400) Neutrophils (%) (Auto) 73 % (31-73) Lymphocytes (%) (Auto) 17 % (24-48) Monocytes (%) (Auto) 9 % (0-9) Eosinophils (%) (Auto) 1 % (0-3) Basophils (%) (Auto) 1 % (0-3) Neutrophils # (Auto) 7.4 x10^3/uL (1.8-7.7) Lymphocytes # (Auto) 1.7 x10^3/uL (1.0-4.8) Monocytes # (Auto) 0.9 x10^3/uL (0.0-1.1) Eosinophils # (Auto) 0.1 x10^3/uL (0.0-0.7) Basophils # (Auto) 0.1 x10^3/uL (0.0-0.2) Sodium Level 138 mmol/L (136-145) Potassium Level 3.8 mmol/L (3.5-5.1) Chloride Level 102 mmol/L (98-107) Carbon Dioxide Level 30 mmol/L (21-32) Anion Gap 6 (6-14) Blood Urea Nitrogen 13 mg/dL (7-20) Creatinine 0.8 mg/dL (0.6-1.0) Estimated GFR (Cockcroft-Gault) 79.9 BUN/Creatinine Ratio 16 (6-20) Glucose Level 221 mg/dL (70-99) Calcium Level 8.3 mg/dL (8.5-10.1) Total Bilirubin 0.5 mg/dL (0.2-1.0) Aspartate Amino Transf (AST/SGOT) 23 U/L (15-37) Alanine Aminotransferase (ALT/SGPT) 18 U/L (14-59) Alkaline Phosphatase 241 U/L (46-116) Total Protein 6.5 g/dL (6.4-8.2) Albumin 1.5 g/dL (3.4-5.0) Albumin/Globulin Ratio 0.3 (1.0-1.7) Test 10/08/20 20:40 Glucose (Fingerstick) 191 mg/dL (70-99) Micro RUN DATE: 10/02/20 [facility] LAB *LIVE* PAGE 1 RUN TIME: 929 Specimen Inquiry PATIENT: JONATAN SON ACCT: [id number] LOC: [address] [place] [address] U: [id number] AGE/SX: 40/F ROOM: 120 RE09/28/[address]: SAMM FOFANA MD : [id number] BED: A DIS: 09/29/20 STATUS: DIS IN TLOC: SPEC #: [id number] ABDOLUAYE: 09/28/20 STATUS: COMP REQ #: [id number] RECD: 09/28/[address]: ALVARO GALVIN APRN SOURCE: BLOOD ENTR: 09/30/[address]: MELIZA ANDREW MD SPDESC: ALVARO NUNEZ DO ORDERED: BLOOD CULT-LC Procedure Result BLOOD CULTURE LC Final Final GRAM POSITIVE COCCI FINAL ID= [STAPHYLOCOCCUS AUREUS (MRSA)] STAPHYLOCOCCUS AUREUS (MRSA) ANTIMICROBIAL SUSCEPTIBILITY Final Comment POS IVELISSE TYPE 38 STAPHYLOCOCCUS AUREUS (MRSA) ANTIBIOTIC RESULT INTERPRETATION AZITHROMYCIN >4 R CLINDAMYCIN <=0.25 S CEFOXITIN SCREEN >4 POS CIPROFLOXACIN <=1 S CEFTAROLINE <=0.5 S DAPTOMYCIN 1 S ERYTHROMYCIN >4 R GENTAMICIN <=4 S INDUCIBLE CLINDAMYCIN <=4/0.5 NEG LINEZOLID 2 S LEVOFLOXACIN <=1 S OXACILLIN >2 R PENICILLIN >2 R* RIFAMPIN <=1 S TRIMETHOPRIM/SULFAMETHOXAZOLE <=0.5/9.5 S TETRACYCLINE <=4 S VANCOMYCIN 1 S Unless otherwise specified, Testing Performed by: [address] [address] For Inquires, the Physician may contact the Microbiology department at [phone] <Conclusion> The left ventricle is normal size. The left ventricular systolic function is normal and the ejection fraction is within normal range. The Ejection Fraction is 55-60%. Doppler and Color Flow revealed no significant aortic regurgitation. There is no significant aortic valvular stenosis. Doppler and Color-flow revealed trace mitral regurgitation. Doppler and Color Flow revealed trace tricuspid regurgitation with an estimated PAP of 32 mmHg. There is a trace to small pericardial effusion with no evidence of hemodynamic significance. Objective: Assessment: 1. Sepsis 2. MRSA Bacteremia, / bottles at [facility], POA source left buttock skin lesion Repeat BC neg here ECHO noted 3. Leukocytosis and Bandemia. Improving 4. Severe right upper extremity swelling and pain. CTA negative for abscess Improving though slowly 5. Right upper extremity cellulitis. Improving 6. Diabetic ketoacidosis. 7. Abnormal LFTs. 8. Protein calorie malnutrition. 9. Neck pain with underlying chronic neck pain and back pain. Improved 10. High CK at outside hospital. Here within normal limits 11. Left buttock skin lesion, improving. No evidence of abscess. 12. History of allergies to penicillin has tolerated ceftriaxone well at outside hospital 13. Pneumonia, Moderate RT Loculated Parapneumonic effusion 14. Mild CHF 2D echo noted Plan: Plan of Care Limited choices for MRSA bacteremia and PNA and Parapneumonic effusion Off Daptomycin,Cefepime,flagyl,doxycycline, Cont Ceftaroline. 10/08 (tolerated Cefepime well) DC Linezolid Follow-up repeat blood cultures here negative from 09/29 Pulm team following, may need thoracocentesis for loculated rt pleural effusion Encouraged to elevate right upper extremity. Encourage PT and OT as tolerated Continue local care. Maintain aspiration precautions. C diff neg Discussed with RN D/W CECIL Castillo MD Oct 09, 2020 07:26
[2020-10-09] MEDS: CEFTAROLINE FOSAMIL 600 MG in IV NORMAL SALINE 250ML 250 ML IV SCH ×3 (07:38→21:56)
--- NOTE | 2020-10-09 07:53 | PDOC ---
PULMONARY PROGRESS NOTES DATE: 10/09/20 TIME: 07:51 Subjective on 1.5 liters NC denies sob has occ cough no overnight events Vitals Vital Signs Date Time Temp Pulse Resp B/P (MAP) Pulse Ox O2 Delivery O2 Flow Rate FiO2 10/09/20 03:00 98.1 99 18 103/57 (72) 95 Nasal Cannula 2.0 98.1 ROS: No Nausea, No Chest Pain, No Abdominal Pain, No Increase Cough General: Alert, Oriented X4, No acute distress Lungs: Clear Cardiovascular: S1, S2 Abdomen: Soft, Non-tender, Other (obese) Neuro Exam: Alert Extremities: Other (1+edema lower, right arm swelling) Skin: Warm Labs Laboratory Tests Test 10/07/20 11:25 10/07/20 16:24 10/07/20 20:56 10/08/20 00:38 Glucose (Fingerstick) 261 mg/dL (70-99) 193 mg/dL (70-99) 263 mg/dL (70-99) 242 mg/dL (70-99) Test 10/08/20 05:30 10/08/20 07:49 10/08/20 11:45 10/08/20 15:15 Sodium Level 137 mmol/L (136-145) 138 mmol/L (136-145) Potassium Level 4.2 mmol/L (3.5-5.1) 3.8 mmol/L (3.5-5.1) Chloride Level 101 mmol/L (98-107) 102 mmol/L (98-107) Carbon Dioxide Level 28 mmol/L (21-32) 30 mmol/L (21-32) Anion Gap 8 (6-14) 6 (6-14) Blood Urea Nitrogen 14 mg/dL (7-20) 13 mg/dL (7-20) Creatinine 0.7 mg/dL (0.6-1.0) 0.8 mg/dL (0.6-1.0) Estimated GFR (Cockcroft-Gault) 93.2 79.9 Glucose Level 228 mg/dL (70-99) 221 mg/dL (70-99) Calcium Level 8.6 mg/dL (8.5-10.1) 8.3 mg/dL (8.5-10.1) Glucose (Fingerstick) 222 mg/dL (70-99) 228 mg/dL (70-99) White Blood Count 10.2 x10^3/uL (4.0-11.0) Red Blood Count 3.46 x10^6/uL (3.50-5.40) Hemoglobin 10.9 g/dL (12.0-15.5) Hematocrit 32.1 % (36.0-47.0) Mean Corpuscular Volume 93 fL (79-100) Mean Corpuscular Hemoglobin 32 pg (25-35) Mean Corpuscular Hemoglobin Concent 34 g/dL (31-37) Red Cell Distribution Width 13.5 % (11.5-14.5) Platelet Count 359 x10^3/uL (140-400) Neutrophils (%) (Auto) 73 % (31-73) Lymphocytes (%) (Auto) 17 % (24-48) Monocytes (%) (Auto) 9 % (0-9) Eosinophils (%) (Auto) 1 % (0-3) Basophils (%) (Auto) 1 % (0-3) Neutrophils # (Auto) 7.4 x10^3/uL (1.8-7.7) Lymphocytes # (Auto) 1.7 x10^3/uL (1.0-4.8) Monocytes # (Auto) 0.9 x10^3/uL (0.0-1.1) Eosinophils # (Auto) 0.1 x10^3/uL (0.0-0.7) Basophils # (Auto) 0.1 x10^3/uL (0.0-0.2) BUN/Creatinine Ratio 16 (6-20) Total Bilirubin 0.5 mg/dL (0.2-1.0) Aspartate Amino Transf (AST/SGOT) 23 U/L (15-37) Alanine Aminotransferase (ALT/SGPT) 18 U/L (14-59) Alkaline Phosphatase 241 U/L (46-116) Total Protein 6.5 g/dL (6.4-8.2) Albumin 1.5 g/dL (3.4-5.0) Albumin/Globulin Ratio 0.3 (1.0-1.7) Test 10/08/20 16:52 10/08/20 20:40 10/09/20 07:37 Glucose (Fingerstick) 195 mg/dL (70-99) 191 mg/dL (70-99) 215 mg/dL (70-99) Laboratory Tests Test 10/08/20 11:45 10/08/20 15:15 10/08/20 16:52 10/08/20 20:40 Glucose (Fingerstick) 228 mg/dL (70-99) 195 mg/dL (70-99) 191 mg/dL (70-99) White Blood Count 10.2 x10^3/uL (4.0-11.0) Red Blood Count 3.46 x10^6/uL (3.50-5.40) Hemoglobin 10.9 g/dL (12.0-15.5) Hematocrit 32.1 % (36.0-47.0) Mean Corpuscular Volume 93 fL (79-100) Mean Corpuscular Hemoglobin 32 pg (25-35) Mean Corpuscular Hemoglobin Concent 34 g/dL (31-37) Red Cell Distribution Width 13.5 % (11.5-14.5) Platelet Count 359 x10^3/uL (140-400) Neutrophils (%) (Auto) 73 % (31-73) Lymphocytes (%) (Auto) 17 % (24-48) Monocytes (%) (Auto) 9 % (0-9) Eosinophils (%) (Auto) 1 % (0-3) Basophils (%) (Auto) 1 % (0-3) Neutrophils # (Auto) 7.4 x10^3/uL (1.8-7.7) Lymphocytes # (Auto) 1.7 x10^3/uL (1.0-4.8) Monocytes # (Auto) 0.9 x10^3/uL (0.0-1.1) Eosinophils # (Auto) 0.1 x10^3/uL (0.0-0.7) Basophils # (Auto) 0.1 x10^3/uL (0.0-0.2) Sodium Level 138 mmol/L (136-145) Potassium Level 3.8 mmol/L (3.5-5.1) Chloride Level 102 mmol/L (98-107) Carbon Dioxide Level 30 mmol/L (21-32) Anion Gap 6 (6-14) Blood Urea Nitrogen 13 mg/dL (7-20) Creatinine 0.8 mg/dL (0.6-1.0) Estimated GFR (Cockcroft-Gault) 79.9 BUN/Creatinine Ratio 16 (6-20) Glucose Level 221 mg/dL (70-99) Calcium Level 8.3 mg/dL (8.5-10.1) Total Bilirubin 0.5 mg/dL (0.2-1.0) Aspartate Amino Transf (AST/SGOT) 23 U/L (15-37) Alanine Aminotransferase (ALT/SGPT) 18 U/L (14-59) Alkaline Phosphatase 241 U/L (46-116) Total Protein 6.5 g/dL (6.4-8.2) Albumin 1.5 g/dL (3.4-5.0) Albumin/Globulin Ratio 0.3 (1.0-1.7) Test 10/09/20 07:37 Glucose (Fingerstick) 215 mg/dL (70-99) Medications Active Scripts Medications Dose Route/Sig Max Daily Dose Days Date Category Zofran (Ondansetron Hcl) 4 Mg Tablet 4 Mg IVP PRN Q6HRS PRN 09/29/20 Reported Humalog (Insulin Lispro) 100 Unit/1 Ml Cartridge 20 Unit SQ QIDACHS 09/29/20 Reported Lantus Solostar (Insulin Glargine,Hum.rec.anlog) 100 Unit/1 Ml Insuln.pen 20 Unit SQ QHS 09/29/[address] chest IMPRESSION: 1. No significant interval change in bilateral airspace disease. There is a moderate size loculated pleural effusion on the right, unchanged. 2. Mediastinal lymphadenopathy, also stable. 3. No new abnormality. Impression . 1. Acute hypoxic respiratory failure secondary to right lung pneumonia, and small right-sided pleural effusion , likely parapneumonic. 2. Abnormal CT chest done on at [facility] with no evidence of central pulmonary emboli, but the contrast was poor and unable to see segmental and subsegmental pulmonary arteries. She has some asymmetric right septal thickening and also a right upper lobe bilobed opacity 1.4 cm in size. Now, her chest x-ray has shown increasing pleural effusion and pleural thickening and associated infiltrates. CT of right arm along with CT of the chest was reviewed dated 09/30. She has right lung infiltrate with effusion is small. 3. No significant tobacco history. 4. Right u ext cellulitis. Infectious Disease is following. 5. MRSA bacteremia, per ID 6. Encephalopathy multifactorial--resolved 7. Right upper extremity cellulitis--improving 8. Abnormal LFTs 9. Protein malnutrition Plan . PLAN: 02 titration to keep sat 90%, 6 min walk at dc Cont linezolid 10/05, Cont Ceftaroline. 10/08 (tolerated Cefepime well) per id Follow-up repeat blood cultures here negative so far CT chest 10/08/20 reviewed, no significant change in loculated effusion, dr tamayo iscussed with ID and possible need for thoracentesis IS to use hourly Will need repeat CT of chest in 6 to 8 weeks Follow infectious disease recommendations in regards to antibiotics, follow cultures,----MRSA bacteremia-- repeat BC NGTD DVT/GI prophylaxis Discussed with RN, pt ISAAC COURTNEY MD Oct 09, 2020 07:53
[2020-10-09] MEDS: IPRATROPIUM BROMIDE 0.5 MG/2.5 ML NEBU. NEB SCH ×4 (08:13→19:48)
[2020-10-09] MEDS: LINEZOLID 600 MG TABLET PO SCH (08:55)
[2020-10-09] MEDS: LABETALOL HCL 100 MG TABLET. PO SCH ×2 (08:55→21:54)
[2020-10-09] MEDS: LACTOBACILLUS RHAMNOSUS GG 1 CAPSULE. PO SCH ×2 (08:55→21:53)
[2020-10-09] MEDS: NYSTATIN TOPICAL POWDER 15GM BOTTLE. TP SCH ×2 (09:00→21:55)
[2020-10-09] MEDS: INSULIN LISPRO 300 UNITS/3 ML VIAL. SQ SCH ×4 (09:06→22:27)
--- NOTE | 2020-10-09 09:52 | PN ---
DATE: 10/09/2020 SUBJECTIVE: The patient is resting, slightly propped up in bed, in no apparent distress. She stated that she has slept very well. Her chest pain is much better controlled. Denied any chills, rigors or fever. CT scan of the chest without contrast done yesterday showed that the patient has no significant interval change in bilateral airspace disease. There is a moderate size loculated pleural effusion on the right, mediastinal lymphadenopathy also stable. No new abnormality. PHYSICAL EXAMINATION: GENERAL: When I examined her, she looked somewhat pale, but no jaundice, cyanosis, no lymphadenopathy, no thyromegaly. No jugular venous distention, no lower limb edema. VITAL SIGNS: Heart rate was 101, blood pressure 126/66, temperature was 98.2, respiratory rate was 18 and oxygen saturation was 93% on 1.5 liters of oxygen. HEAD, EYES, EARS, NOSE AND THROAT: Normocephalic, atraumatic. NECK: Supple. HEART: Normal first and second heart sounds. No gallop or murmur. CHEST: Clear to auscultation. No no crepitation or rhonchi. ABDOMEN: Distended, soft, nontender. NEUROLOGIC: She is awake, alert, responding appropriately. All cranial nerves intact. She moves extremities without difficulty. Her intake over the last 24 hours was incompletely recorded. LABORATORY DATA: As of this morning, her white cell count is down to 10,000, hemoglobin 11, hematocrit 32, MCV 93 and platelet count 359,000. Her chemistry showed a serum sodium 138, potassium 3.8, chloride 102, bicarbonate 30, anion gap of 6, BUN of 13, creatinine 0.8, blood sugar 121, calcium was 8.3. Total bilirubin, AST, ALT were normal. Alkaline phosphatase slightly elevated. Total protein 6.5, albumin was 1.5. ASSESSMENT: 1. Acute hypoxic respiratory failure, improving. Her oxygen requirement is down from 6 to 1.5 liter. 2. Bilateral pneumonia with right-sided pleural effusion that is loculated. 3. Markedly swollen right upper extremity with cellulitis; however, venous Doppler ultrasound was negative for deep vein thrombosis. CT scan showed no evidence of drainable abscess. 4. The patient has a skin lesion in the left gluteal area that might be the source of her staph infection. 5. The patient is has poorly controlled type 2 diabetes mellitus. 6. Hypertension. 7. Hyperlipidemia. 8. Fatty liver with abnormal liver enzymes that has resolved. 9. Depression and anxiety. 10. Peripheral neuropathy. 11. Hyponatremia that has resolved. 12. Severe protein calorie malnutrition. Serum albumin is 1.5 g/dL. PLAN: To continue with IV antibiotic in the form of linezolid and ceftaroline. Her Flagyl, doxycycline and daptomycin were all discontinued. Continue with nutritional support. Continue pain management. Continue with physical and occupational therapy. MARCOS DR: Kali TID: [id number]
[2020-10-09 11:00] VITALS: BP 112/68
[2020-10-09] MEDS: ACETAMINOPHEN 325 MG TABLET. PO PRN (14:19)
[2020-10-09 15:00] VITALS: BP 122/70
[2020-10-09 19:57] VITALS: BP 120/61
[2020-10-09] MEDS: DULoxetine HCL 30 MG CAPSULE.DR PO SCH (21:53)
[2020-10-09] MEDS: INSULIN GLARGINE SYRINGE. SQ SCH (22:04)
[2020-10-09] MEDS: oxyCODONE/APAP 5/325 1 TAB TABLET PO PRN (22:14)
[2020-10-09] MEDS: GABAPENTIN 300 MG CAPSULE. PO SCH (22:15)
[2020-10-10 04:23] VITALS: BP 121/64
[2020-10-10] MEDS: CEFTAROLINE FOSAMIL 600 MG in IV NORMAL SALINE 250ML 250 ML IV SCH ×3 (06:32→22:16)
[2020-10-10 06:45] VITALS: BP 138/73
[2020-10-10] MEDS: IPRATROPIUM BROMIDE 0.5 MG/2.5 ML NEBU. NEB SCH ×4 (07:08→20:58)
--- NOTE | 2020-10-10 07:54 | PDOC ---
PULMONARY PROGRESS NOTES DATE: 10/10/20 TIME: 07:49 Subjective on 2 liters NC denies sob has occ cough has some shoulder pain Vitals Vital Signs Date Time Temp Pulse Resp B/P (MAP) Pulse Ox O2 Delivery O2 Flow Rate FiO2 10/10/20 07:08 92 Nasal Cannula 2.0 10/10/20 06:45 97.7 90 20 138/73 (94) 97.7 ROS: No Nausea, No Chest Pain, No Abdominal Pain, No Increase Cough General: Alert, Oriented X4, No acute distress HEENT: Other (nc at perrl ) Lungs: Clear Cardiovascular: S1, S2 Abdomen: Soft, Non-tender, Other (obese) Neuro Exam: Alert Extremities: Other (1+edema lower, right arm swelling) Skin: Warm Labs Laboratory Tests Test 10/08/20 11:45 10/08/20 15:15 10/08/20 16:52 10/08/20 20:40 Glucose (Fingerstick) 228 mg/dL (70-99) 195 mg/dL (70-99) 191 mg/dL (70-99) White Blood Count 10.2 x10^3/uL (4.0-11.0) Red Blood Count 3.46 x10^6/uL (3.50-5.40) Hemoglobin 10.9 g/dL (12.0-15.5) Hematocrit 32.1 % (36.0-47.0) Mean Corpuscular Volume 93 fL (79-100) Mean Corpuscular Hemoglobin 32 pg (25-35) Mean Corpuscular Hemoglobin Concent 34 g/dL (31-37) Red Cell Distribution Width 13.5 % (11.5-14.5) Platelet Count 359 x10^3/uL (140-400) Neutrophils (%) (Auto) 73 % (31-73) Lymphocytes (%) (Auto) 17 % (24-48) Monocytes (%) (Auto) 9 % (0-9) Eosinophils (%) (Auto) 1 % (0-3) Basophils (%) (Auto) 1 % (0-3) Neutrophils # (Auto) 7.4 x10^3/uL (1.8-7.7) Lymphocytes # (Auto) 1.7 x10^3/uL (1.0-4.8) Monocytes # (Auto) 0.9 x10^3/uL (0.0-1.1) Eosinophils # (Auto) 0.1 x10^3/uL (0.0-0.7) Basophils # (Auto) 0.1 x10^3/uL (0.0-0.2) Sodium Level 138 mmol/L (136-145) Potassium Level 3.8 mmol/L (3.5-5.1) Chloride Level 102 mmol/L (98-107) Carbon Dioxide Level 30 mmol/L (21-32) Anion Gap 6 (6-14) Blood Urea Nitrogen 13 mg/dL (7-20) Creatinine 0.8 mg/dL (0.6-1.0) Estimated GFR (Cockcroft-Gault) 79.9 BUN/Creatinine Ratio 16 (6-20) Glucose Level 221 mg/dL (70-99) Calcium Level 8.3 mg/dL (8.5-10.1) Total Bilirubin 0.5 mg/dL (0.2-1.0) Aspartate Amino Transf (AST/SGOT) 23 U/L (15-37) Alanine Aminotransferase (ALT/SGPT) 18 U/L (14-59) Alkaline Phosphatase 241 U/L (46-116) Total Protein 6.5 g/dL (6.4-8.2) Albumin 1.5 g/dL (3.4-5.0) Albumin/Globulin Ratio 0.3 (1.0-1.7) Test 10/09/20 07:37 10/09/20 11:09 10/09/20 16:59 10/09/20 20:11 Glucose (Fingerstick) 215 mg/dL (70-99) 188 mg/dL (70-99) 219 mg/dL (70-99) 210 mg/dL (70-99) Laboratory Tests Test 10/09/20 11:09 10/09/20 16:59 10/09/20 20:11 Glucose (Fingerstick) 188 mg/dL (70-99) 219 mg/dL (70-99) 210 mg/dL (70-99) Medications Active Scripts Medications Dose Route/Sig Max Daily Dose Days Date Category Zofran (Ondansetron Hcl) 4 Mg Tablet 4 Mg IVP PRN Q6HRS PRN 09/29/20 Reported Humalog (Insulin Lispro) 100 Unit/1 Ml Cartridge 20 Unit SQ QIDACHS 09/29/20 Reported Lantus Solostar (Insulin Glargine,Hum.rec.anlog) 100 Unit/1 Ml Insuln.pen 20 Unit SQ QHS 09/29/[address] chest IMPRESSION: 1. No significant interval change in bilateral airspace disease. There is a moderate size loculated pleural effusion on the right, unchanged. 2. Mediastinal lymphadenopathy, also stable. 3. No new abnormality. Impression . 1. Acute hypoxic respiratory failure secondary to right lung pneumonia, and small right-sided pleural effusion , likely parapneumonic. 2. Abnormal CT chest done on at [facility] with no evidence of central pulmonary emboli, but the contrast was poor and unable to see segmental and subsegmental pulmonary arteries. She has some asymmetric right septal thickening and also a right upper lobe bilobed opacity 1.4 cm in size. Now, her chest x-ray has shown increasing pleural effusion and pleural thickening and associated infiltrates. CT of right arm along with CT of the chest was reviewed dated 09/30. She has right lung infiltrate with effusion is small. 3. No significant tobacco history. 4. Right u ext cellulitis. Infectious Disease is following. 5. MRSA bacteremia, per ID 6. Encephalopathy multifactorial--resolved 7. Right upper extremity cellulitis--improving 8. Abnormal LFTs 9. Protein malnutrition Plan . PLAN: 02 titration to keep sat 90%, 6 min walk at dc Cont linezolid 10/05, Cont Ceftaroline. 10/08 (tolerated Cefepime well) per id Follow-up repeat blood cultures here negative so far CT chest 10/08/20 reviewed, no significant change in loculated effusion, dr tamayo discussed with ID and possible need for thoracentesis IS to use hourly Will need repeat CT of chest in 6 to 8 weeks Follow infectious disease recommendations in regards to antibiotics, follow cultures,----MRSA bacteremia-- repeat BC NGTD DVT/GI prophylaxis Discussed with RN, pt ISAAC COURTNEY MD Oct 10, 2020 07:54
[2020-10-10] MEDS: LABETALOL HCL 100 MG TABLET. PO SCH ×2 (08:31→20:26)
[2020-10-10] MEDS: oxyCODONE/APAP 5/325 1 TAB TABLET PO PRN ×2 (08:31→16:43)
[2020-10-10] MEDS: LACTOBACILLUS RHAMNOSUS GG 1 CAPSULE. PO SCH ×2 (08:31→20:25)
[2020-10-10] MEDS: INSULIN LISPRO 300 UNITS/3 ML VIAL. SQ SCH ×4 (08:35→21:00)
[2020-10-10] MEDS: INSULIN GLARGINE SYRINGE. SQ SCH ×2 (09:00→22:26)
--- NOTE | 2020-10-10 09:10 | PDOC ---
Infectious Disease Note Subjective: Subjective Patient feels better Right-sided chest pain is improving Buttock wound is improving Right upper extremity swelling, redness and pain are improving Denies any fever, nausea, vomiting, diarrhea Remains on 2 L O2 by nasal cannula Vital Signs: Vital Signs Vital Signs Date Time Temp Pulse Resp B/P (MAP) Pulse Ox O2 Delivery O2 Flow Rate FiO2 10/10/20 08:31 19 93 Nasal Cannula 2.0 10/10/20 08:31 90 121/64 10/10/20 06:45 97.7 97.7 Physical Exam: PHYSICAL EXAM GENERAL: Alert, oriented x 3, sitting in chair comfortably, in no acute distress. Looks better HEENT: Normocephalic, atraumatic. Anicteric. No thrush. Oral mucosa dry on O2 by nasal cannula. NECK: Supple, no JVD, no lymphadenopathy. Right neck central line clean. LUNGS: Poor inspiratory effort, no wheezing. Decreased breath sounds at the bases. HEART: S1, S2, No murmurs. ABDOMEN: Soft, nontender, nondistended, no rebound or guarding. EXTREMITIES: Right upper extremity swelling extending from hand to shoulder, mild redness, diffuse erythema and tenderness though improving, Radial pulse palpable. Decreased range of motion due to extreme swelling. No wrist, elbow or shoulder Effusion noted DERMATOLOGIC: No other open skin wounds noted. No generalized rash except for above. Dry scab present over the left cheek and right forearm. No abscess, no fluctuance. NEUROLOGIC: Alert, oriented x 3, grossly nonfocal. PSYCHIATRIC: Cooperative, calm, somewhat flat affect. Medications: Inpatient Meds: Medications reviewed. Labs: Lab Laboratory Tests Test 10/09/20 11:09 10/09/20 16:59 10/09/20 20:11 10/10/20 08:03 Glucose (Fingerstick) 188 mg/dL (70-99) 219 mg/dL (70-99) 210 mg/dL (70-99) 184 mg/dL (70-99) Micro RUN DATE: 10/02/20 [facility] LAB *LIVE* PAGE 1 RUN TIME: 929 Specimen Inquiry PATIENT: JONATAN SON ACCT: [id number] LOC: 1 [facility] U: [id number] AGE/SX: 40/F ROOM: 120 RE09/28/[address]: SAMM FOFANA MD : 1980 BED: A DIS: 09/29/20 STATUS: DIS IN TLOC: SPEC #: [id number] ABDOULAYE: 09/28/20 STATUS: COMP REQ #: [id number] RECD: 09/28/[address] [facility] [address]: ALVARO GALVIN APRN SOURCE: BLOOD ENTR: 09/30/20-[address] [facility] [address]: MELIZA ANDREW MD SPDESC: ALVARO NUNEZ DO ORDERED: BLOOD CULT-LC Procedure Result BLOOD CULTURE LC Final Final GRAM POSITIVE COCCI FINAL ID= [STAPHYLOCOCCUS AUREUS (MRSA)] STAPHYLOCOCCUS AUREUS (MRSA) ANTIMICROBIAL SUSCEPTIBILITY Final Comment POS IVELISSE TYPE 38 STAPHYLOCOCCUS AUREUS (MRSA) ANTIBIOTIC RESULT INTERPRETATION AZITHROMYCIN >4 R CLINDAMYCIN <=0.25 S CEFOXITIN SCREEN >4 POS CIPROFLOXACIN <=1 S CEFTAROLINE <=0.5 S DAPTOMYCIN 1 S ERYTHROMYCIN >4 R GENTAMICIN <=4 S INDUCIBLE CLINDAMYCIN <=4/0.5 NEG LINEZOLID 2 S LEVOFLOXACIN <=1 S OXACILLIN >2 R PENICILLIN >2 R* RIFAMPIN <=1 S TRIMETHOPRIM/SULFAMETHOXAZOLE <=0.5/9.5 S TETRACYCLINE <=4 S VANCOMYCIN 1 S Unless otherwise specified, Testing Performed by: [address] [address] For Inquires, the Physician may contact the Microbiology department at [phone] <Conclusion> The left ventricle is normal size. The left ventricular systolic function is normal and the ejection fraction is within normal range. The Ejection Fraction is 55-60%. Doppler and Color Flow revealed no significant aortic regurgitation. There is no significant aortic valvular stenosis. Doppler and Color-flow revealed trace mitral regurgitation. Doppler and Color Flow revealed trace tricuspid regurgitation with an estimated PAP of 32 mmHg. There is a trace to small pericardial effusion with no evidence of hemodynamic significance. Objective: Assessment: 1. Sepsis 2. MRSA Bacteremia, 05/10 bottles at [facility] source left buttock skin lesion Repeat BC neg here ECHO noted 3. Leukocytosis and Bandemia. Improving 4. Severe right upper extremity swelling and pain. CTA negative for abscess Improving though slowly 5. Right upper extremity cellulitis. Improving 6. Diabetic ketoacidosis. 7. Abnormal LFTs. 8. Protein calorie malnutrition. 9. Neck pain with underlying chronic neck pain and back pain. Improved 10. High CK at outside hospital. Here within normal limits 11. Left buttock skin lesion, improving. No evidence of abscess. 12. History of allergies to penicillin has tolerated ceftriaxone well at outside hospital 13. Pneumonia, Moderate RT Loculated Parapneumonic effusion 14. Mild CHF 2D echo noted Plan: Plan of Care Limited choices for MRSA bacteremia and PNA and Parapneumonic effusion Off Daptomycin,Cefepime,flagyl,doxycycline, Cont Ceftaroline. 10/08 (tolerated Cefepime well) DC Linezolid Follow-up repeat blood cultures here negative from 09/29 Pulm team following, may need thoracocentesis for loculated rt pleural effusion Encouraged to elevate right upper extremity. Encourage PT and OT as tolerated Continue local care. Maintain aspiration precautions. C diff neg DC central line if able Place PICC line Discussed with CECIL EDWARDS MD Oct 10, 2020 09:10
[2020-10-10 11:00] VITALS: BP 115/59
[2020-10-10] MEDS: NYSTATIN TOPICAL POWDER 15GM BOTTLE. TP SCH ×2 (11:41→20:27)
[2020-10-10 15:00] VITALS: BP 121/75
--- NOTE | 2020-10-10 18:38 | PN ---
DATE: 10/10/2020 SUBJECTIVE: The patient is resting, slightly propped up in bed, in no apparent distress. Continued to complain of pain in the right chest and her right upper extremity, generalized aches and pains. However, her appetite has improved. She is now eating more and has been up and about participate with physical therapy. PHYSICAL EXAMINATION: GENERAL: When I examined her, she looked well and was clearly in no apparent respiratory distress. She is pale, but no jaundice, cyanosis or thyromegaly. No jugular venous distention, no lower limb edema. VITAL SIGNS: Her heart rate was 90, blood pressure is 138/73, temperature 97.7, respiratory rate 20, and oxygen saturation was 91% on 2 liters of oxygen. The patient continued to desaturate without oxygen. HEENT: Examination of the head, eyes, ears, nose and throat, normocephalic, atraumatic. NECK: Supple. HEART: Normal first and second heart sounds, no gallop or murmur. CHEST: Shows central trachea, equal bilateral expansion, air entry , vesicular breath sounds. No crepitation or rhonchi anteriorly. The patient has dull percussion noted and absent breath sounds in the right side posteriorly. ABDOMEN: Distended, soft, nontender. NEUROLOGIC: She is grossly intact. Her intake and output, incompletely recorded. LABORATORY DATA: Her most recent white cell count was 10,000, hemoglobin 11, hematocrit 32, MCV 93 and platelet count 359,000. Serum sodium 138, potassium 3.8, chloride 102, bicarbonate 30, anion gap of 6, BUN 13, creatinine 0.8. Estimated GFR was 80 mL per minute. ASSESSMENT: 1. Acute hypoxic respiratory failure, improved; however, the patient continued to require oxygen as she desaturates dramatically without oxygen supplementation. She is now on 2 liters of oxygen, maintaining her oxygen saturation at 91%. 2. Bilateral pneumonia with right-sided pleural effusion that is loculated. 3. Markedly swollen right upper extremity with possible cellulitis; however, venous Doppler ultrasound showed no evidence of deep vein thrombosis. CT scan showed no evidence of drainable abscess. 4. The patient has skin lesion, left gluteal area, that might be the source of her staph infection. 5. The patient has poorly controlled type 2 diabetes mellitus. 6. Hypertension. 7. Hyperlipidemia. 8. Fatty liver with abnormal liver enzymes, has improved. 9. Depression and anxiety. 10. Peripheral neuropathy. 11. Hyponatremia that has resolved. 12. Severe protein calorie malnutrition with serum albumin is 1.5 g/dL. PLAN: Plan is to continue with IV ceftaroline 600 mg IV q.8 hourly. Continue with pain management. Continue to monitor blood sugar and adjust insulin as needed as her blood sugar continued to be somewhat high, I will increase her Lantus to 40 units at bedtime. ASHOK DR: Kali TID: [id number]
[2020-10-10 19:00] VITALS: BP 111/55
[2020-10-10] MEDS: GABAPENTIN 300 MG CAPSULE. PO SCH (20:26)
[2020-10-10] MEDS: DULoxetine HCL 30 MG CAPSULE.DR PO SCH (20:26)
[2020-10-10 23:06] VITALS: BP 117/63
[2020-10-11 03:16] VITALS: BP 110/56
[2020-10-11 04:56] LABS: HEMATOCRIT 30.4 % (36.0-47.0); HEMOGLOBIN 10.4 g/dL (12.0-15.5); RED BLOOD COUNT 3.27 x10^6/uL (3.50-5.40); RED CELL DISTRIBUTION WIDTH 13.3 % (11.5-14.5); WHITE BLOOD COUNT 7.6 x10^3/uL (4.0-11.0)
[2020-10-11 05:29] LABS: CALCIUM 8.4 mg/dL (8.5-10.1); CREATININE 0.6 mg/dL (0.6-1.0); GFR 111.3
[2020-10-11] MEDS: CEFTAROLINE FOSAMIL 600 MG in IV NORMAL SALINE 250ML 250 ML IV SCH ×3 (06:33→20:29)
[2020-10-11] MEDS: ACETAMINOPHEN 325 MG TABLET. PO PRN (06:42)
[2020-10-11 07:00] VITALS: BP 114/69
[2020-10-11] MEDS: IPRATROPIUM BROMIDE 0.5 MG/2.5 ML NEBU. NEB SCH ×4 (07:42→19:33)
--- NOTE | 2020-10-11 09:50 | PDOC ---
PULMONARY PROGRESS NOTES DATE: 10/11/20 TIME: 09:50 Subjective Pt. remains on 2 liters NC no increased SOB or cough RUE edema Vitals Vital Signs Date Time Temp Pulse Resp B/P (MAP) Pulse Ox O2 Delivery O2 Flow Rate FiO2 10/11/20 07:44 91 Nasal Cannula 2.0 10/11/20 07:00 97.7 18 114/69 (84) 97.7 10/11/20 03:16 91 ROS: No Nausea, No Chest Pain, No Abdominal Pain, No Increase Cough General: Alert, Oriented X4, No acute distress HEENT: Other Lungs: Crackles (RLL) Cardiovascular: S1, S2 Abdomen: Soft, Non-tender, Other (obese) Neuro Exam: Alert Extremities: Other (RUE ) Skin: Warm, Dry Labs Laboratory Tests Test 10/09/20 11:09 10/09/20 16:59 10/09/20 20:11 10/10/20 08:03 Glucose (Fingerstick) 188 mg/dL (70-99) 219 mg/dL (70-99) 210 mg/dL (70-99) 184 mg/dL (70-99) Test 10/10/20 11:20 10/10/20 16:40 10/10/20 20:33 10/11/20 04:50 Glucose (Fingerstick) 220 mg/dL (70-99) 164 mg/dL (70-99) 134 mg/dL (70-99) White Blood Count 7.6 x10^3/uL (4.0-11.0) Red Blood Count 3.27 x10^6/uL (3.50-5.40) Hemoglobin 10.4 g/dL (12.0-15.5) Hematocrit 30.4 % (36.0-47.0) Mean Corpuscular Volume 93 fL (79-100) Mean Corpuscular Hemoglobin 32 pg (25-35) Mean Corpuscular Hemoglobin Concent 34 g/dL (31-37) Red Cell Distribution Width 13.3 % (11.5-14.5) Platelet Count 480 x10^3/uL (140-400) Sodium Level 139 mmol/L (136-145) Potassium Level 4.0 mmol/L (3.5-5.1) Chloride Level 104 mmol/L (98-107) Carbon Dioxide Level 27 mmol/L (21-32) Anion Gap 8 (6-14) Blood Urea Nitrogen 9 mg/dL (7-20) Creatinine 0.6 mg/dL (0.6-1.0) Estimated GFR (Cockcroft-Gault) 111.3 Glucose Level 205 mg/dL (70-99) Calcium Level 8.4 mg/dL (8.5-10.1) Test 10/11/20 07:46 Glucose (Fingerstick) 178 mg/dL (70-99) Laboratory Tests Test 10/10/20 11:20 10/10/20 16:40 10/10/20 20:33 10/11/20 04:50 Glucose (Fingerstick) 220 mg/dL (70-99) 164 mg/dL (70-99) 134 mg/dL (70-99) White Blood Count 7.6 x10^3/uL (4.0-11.0) Red Blood Count 3.27 x10^6/uL (3.50-5.40) Hemoglobin 10.4 g/dL (12.0-15.5) Hematocrit 30.4 % (36.0-47.0) Mean Corpuscular Volume 93 fL (79-100) Mean Corpuscular Hemoglobin 32 pg (25-35) Mean Corpuscular Hemoglobin Concent 34 g/dL (31-37) Red Cell Distribution Width 13.3 % (11.5-14.5) Platelet Count 480 x10^3/uL (140-400) Sodium Level 139 mmol/L (136-145) Potassium Level 4.0 mmol/L (3.5-5.1) Chloride Level 104 mmol/L (98-107) Carbon Dioxide Level 27 mmol/L (21-32) Anion Gap 8 (6-14) Blood Urea Nitrogen 9 mg/dL (7-20) Creatinine 0.6 mg/dL (0.6-1.0) Estimated GFR (Cockcroft-Gault) 111.3 Glucose Level 205 mg/dL (70-99) Calcium Level 8.4 mg/dL (8.5-10.1) Test 10/11/20 07:46 Glucose (Fingerstick) 178 mg/dL (70-99) Medications Active Scripts Medications Dose Route/Sig Max Daily Dose Days Date Category Zofran (Ondansetron Hcl) 4 Mg Tablet 4 Mg IVP PRN Q6HRS PRN 09/29/20 Reported Humalog (Insulin Lispro) 100 Unit/1 Ml Cartridge 20 Unit SQ QIDACHS 09/29/20 Reported Lantus Solostar (Insulin Glargine,Hum.rec.anlog) 100 Unit/1 Ml Insuln.pen 20 Unit SQ QHS 09/29/[address] chest IMPRESSION: 1. No significant interval change in bilateral airspace disease. There is a moderate size loculated pleural effusion on the right, unchanged. 2. Mediastinal lymphadenopathy, also stable. 3. No new abnormality. Impression . 1. Acute hypoxic respiratory failure secondary to right lung pneumonia, and small right-sided pleural effusion , likely parapneumonic. 2. Abnormal CT chest done on at [facility] with no evidence of central pulmonary emboli, but the contrast was poor and unable to see segmental and subsegmental pulmonary arteries. She has some asymmetric right septal thickening and also a right upper lobe bilobed opacity 1.4 cm in size. Now, her chest x-ray has shown increasing pleural effusion and pleural thickening and associated infiltrates. CT of right arm along with CT of the chest was reviewed dated 09/30. She has right lung infiltrate with effusion is small. 3. No significant tobacco history. 4. Right u ext cellulitis. Infectious Disease is following. 5. MRSA bacteremia, per ID 6. Encephalopathy multifactorial--resolved 7. Right upper extremity cellulitis--improving 8. Abnormal LFTs 9. Protein malnutrition Plan . PLAN: Continue supplemental oxygen to keep sats above 92%, on 2 liters NC 6 min walk before Discharge Follow ID recs for ABX-- MRSA bacteremia Follow Cardiology recs-- NPO after midnight for CYNTHIA IR consult for right side thoracentesis Obtain RUE U/S IS to use hourly Will need repeat CT of chest in 6 to 8 weeks DVT/GI prophylaxis Discussed with JAYSHREE COSTA MD Oct 11, 2020 09:50
[2020-10-11] MEDS: LACTOBACILLUS RHAMNOSUS GG 1 CAPSULE. PO SCH ×2 (10:25→20:31)
[2020-10-11] MEDS: NYSTATIN TOPICAL POWDER 15GM BOTTLE. TP SCH ×2 (10:25→21:00)
[2020-10-11] MEDS: LABETALOL HCL 100 MG TABLET. PO SCH ×2 (10:25→20:30)
[2020-10-11] MEDS: INSULIN LISPRO 300 UNITS/3 ML VIAL. SQ SCH ×4 (10:31→21:00)
--- NOTE | 2020-10-11 10:57 | PDOC ---
Infectious Disease Note Subjective Subjective feeling better ROS ROS no n/v/d/sob Vital Sign Vital Signs Vital Signs Date Time Temp Pulse Resp B/P (MAP) Pulse Ox O2 Delivery O2 Flow Rate FiO2 10/11/20 10:25 106 114/69 10/11/20 07:44 91 Nasal Cannula 2.0 10/11/20 07:00 97.7 18 97.7 Physical Exam PHYSICAL EXAM GENERAL: Alert, oriented x 3, sitting in chair comfortably, in no acute distress. Looks better HEENT: Normocephalic, atraumatic. Anicteric. No thrush. Oral mucosa dry on O2 by nasal cannula. NECK: Supple, no JVD, no lymphadenopathy. Right neck central line clean. LUNGS: Poor inspiratory effort, no wheezing. Decreased breath sounds at the bases. HEART: S1, S2, No murmurs. ABDOMEN: Soft, nontender, nondistended, no rebound or guarding. EXTREMITIES: Right upper extremity swelling extending from hand to shoulder, mild redness, diffuse erythema and tenderness though improving, Radial pulse palpable. Decreased range of motion due to extreme swelling. No wrist, elbow or shoulder Effusion noted DERMATOLOGIC: No other open skin wounds noted. No generalized rash except for above. Dry scab present over the left cheek and right forearm. No abscess, no fluctuance. NEUROLOGIC: Alert, oriented x 3, grossly nonfocal. PSYCHIATRIC: Cooperative, calm, somewhat flat affect. Labs Lab Laboratory Tests Test 10/10/20 11:20 10/10/20 16:40 10/10/20 20:33 10/11/20 04:50 Glucose (Fingerstick) 220 mg/dL (70-99) 164 mg/dL (70-99) 134 mg/dL (70-99) White Blood Count 7.6 x10^3/uL (4.0-11.0) Red Blood Count 3.27 x10^6/uL (3.50-5.40) Hemoglobin 10.4 g/dL (12.0-15.5) Hematocrit 30.4 % (36.0-47.0) Mean Corpuscular Volume 93 fL (79-100) Mean Corpuscular Hemoglobin 32 pg (25-35) Mean Corpuscular Hemoglobin Concent 34 g/dL (31-37) Red Cell Distribution Width 13.3 % (11.5-14.5) Platelet Count 480 x10^3/uL (140-400) Sodium Level 139 mmol/L (136-145) Potassium Level 4.0 mmol/L (3.5-5.1) Chloride Level 104 mmol/L (98-107) Carbon Dioxide Level 27 mmol/L (21-32) Anion Gap 8 (6-14) Blood Urea Nitrogen 9 mg/dL (7-20) Creatinine 0.6 mg/dL (0.6-1.0) Estimated GFR (Cockcroft-Gault) 111.3 Glucose Level 205 mg/dL (70-99) Calcium Level 8.4 mg/dL (8.5-10.1) Test 10/11/20 07:46 Glucose (Fingerstick) 178 mg/dL (70-99) Micro Microbiology 10/08/20 Gram Stain - Final, Resulted 10/08/20 Aerobic and Anaerobic Culture - Preliminary, Resulted 10/07/20 Gram Stain Evaluation - Final, Complete 10/07/20 Respiratory Culture - Final, Complete 09/29/20 Urine Culture - Final, Complete 09/29/20 Blood Culture - Final, Complete NO GROWTH AFTER 5 DAYS Objective Assessment 1. Sepsis 2. MRSA Bacteremia, / bottles at [facility], A source left buttock skin lesion Repeat BC neg here ECHO noted 3. Leukocytosis and Bandemia. Improving 4. Severe right upper extremity swelling and pain. CTA negative for abscess Improving though slowly 5. Right upper extremity cellulitis. Improving 6. Diabetic ketoacidosis. 7. Abnormal LFTs. 8. Protein calorie malnutrition. 9. Neck pain with underlying chronic neck pain and back pain. Improved 10. High CK at outside hospital. Here within normal limits 11. Left buttock skin lesion, improving. No evidence of abscess. 12. History of allergies to penicillin has tolerated ceftriaxone well at outside hospital 13. Pneumonia, Moderate RT Loculated Parapneumonic effusion 14. Mild CHF 2D echo noted Plan Plan of Care Limited choices for MRSA bacteremia and PNA and Parapneumonic effusion Cont Ceftaroline. 10/08 (tolerated Cefepime well) Follow-up repeat blood cultures here negative from 09/29 Pulm team following, Encouraged to elevate right upper extremity. Encourage PT and OT as tolerated Continue local care. Maintain aspiration precautions. C diff neg Place PICC line Discussed with JAZZY EDWARDS MD Oct 11, 2020 10:57
[2020-10-11 11:00] VITALS: BP 122/68
--- NOTE | 2020-10-11 13:22 | PN ---
DATE: 10/11/2020 SUBJECTIVE: The patient is resting, slightly propped up in bed, in no apparent respiratory distress. She is awake, alert, responding appropriately. She is generally feeling better, continued to have some pain in her right chest and right upper extremity; however, she is afebrile. Her white cell count is down to 7600. OBJECTIVE: GENERAL: When I examined her, she was somewhat pale, but no jaundice, cyanosis or thyromegaly. No jugular distention. No edema. VITAL SIGNS: Heart rate was 91, blood pressure is 114/69, temperature 97.7, respiratory rate was 18 and oxygen saturation was 91% on 2 liters of oxygen. HEAD, EYES, EARS, NOSE AND THROAT: Normocephalic, atraumatic. NECK: Supple. HEART: Showed normal first and second heart sounds, no gallop, murmur. CHEST: Showed central trachea, equal bilateral expansion, air entry, vesicular breath sounds. No crepitation or rhonchi anteriorly. She had dull percussion noted and absent breath sounds posteriorly. ABDOMEN: Distended, soft, nontender. NEUROLOGIC: She is grossly intact. Her intake over the last 24 hours and output incompletely recorded. LABORATORY DATA: This morning showed a white cell count 7600, hemoglobin 10, hematocrit 30, MCV 93, and platelet count of 180,000. Her chemistry showed a serum sodium of 139, potassium 4, chloride 104, bicarbonate 27, anion gap of 8, BUN 9, creatinine 0.6. Estimated GFR was 111 mL per minute. Her glucose was 105, calcium was 8.4. ASSESSMENT: 1. Acute hypoxic respiratory failure, improved. The patient continued to require oxygen. She saturates dramatically without oxygen supplementation. She is now on 2 liters of oxygen, maintaining her oxygen saturation of 91%. 2. Bilateral pneumonia with right-sided pleural effusion that is loculated. 3. Markedly swollen right upper extremity with possible cellulitis. However, her venous Doppler ultrasound showed no evidence of deep vein thrombosis. CT scan showed no evidence of drainable abscess. 4. The patient has a skin lesion in the left gluteal area that might be the source of her staph infection. 5. The patient has poorly controlled type 2 diabetes mellitus. 6. Hypertension. 7. Hyperlipidemia. 8. Fatty liver with abnormal liver enzymes that has improved. 9. Depression and anxiety. 10. Peripheral neuropathy. 11. Hyponatremia, resolved. 12. Severe protein calorie malnutrition. Serum albumin is only 1.5 g/dL. PLAN: Continue with IV cefazolin 600 mg IV q.8 hourly. Continue with pain management. Continue to monitor blood sugar and adjust insulin as needed. Continue with DVT prophylaxis. Continue with physical and occupational therapy. MELISSA/MONTY DR: Kali TID: [id number]
--- NOTE | 2020-10-11 14:13 | NUR ---
SW following. Discussed with RN, pt from home with spouse, 2L. SW attempted to meet with pt to discuss acute rehab, however pt was out of the room getting PICC line placed. Pt also had a CYNTHIA today. SW will attempt again later. Awaiting confirmation of IV abx needed. SW will continue to follow.
[2020-10-11 14:48] VITALS: BP 126/62
--- NOTE | 2020-10-11 15:03 | RAD ---
Exam: Fluoroscopic and ultrasound guided peripheral central venous catheter placement. Indication: Consent: The procedure was explained in its entirety to the patient or the patients designated repres entative by a member of the treatment team, including a discussion of the risks, benefits and commonl y accepted alternatives to the procedure, as well as the expected consequences of no therapy whatsoev er. Discussion of the risks included, but was not limited to, those that are most frequent and thos e that are rare but possibly severe or life-threatening, as well as the possibility of unforeseen com plications. Discussion: A timeout procedure was performed. The patient was prepped and draped using maximum sterile techniq ue, including the use of: Current guideline approved cutaneous antisepsis, a large sterile sheet to e stablish a sterile field. Additionally the veneer slicing machine operator wore a hat, mask, sterile gloves, a sterile gown during the procedure as well as practiced acceptable hand hygiene prior to placing the line. 1% lidocaine was administered for local and a seizure. Ultrasound evaluation demonstrates a patent le ft cephalic vein. Reference images were saved in the medical record. The selected vein is accessed us ing micropuncture technique. A guidewire was advanced centrally. The PICC line was cut to length, and advanced through peel-away sheath such that it's tip resides at the cavoatrial junction. The cathete r was secured in place. Sterile dressings were applied. No immediate complications were identified. Fluoroscopy time: 0.7 minutes Dose area product: 3 Gycm2 Impression: Successful placement of left upper extremity PICC line Electronically signed by: Darin Robbins MD (10/11/2020 3:01 PM) [id number]
--- NOTE | 2020-10-11 16:01 | PDOC ---
Provider Note Date of Service: DATE: 10/11/20 TIME: 15:59 Provider Note CYNTHIA requested by ID due to MRSA bacteremia R/b/a discussed with patient. She would like to discuss further with mother prior to making a decision. Will tentatively plan for tomorrow morning Keep NPO p [place] COVID negative at [facility] Supportive care Justifications for Admission Other Justification JAMAL HOWELL APRN Oct 11, 2020 16:01
[2020-10-11] MEDS: oxyCODONE/APAP 5/325 1 TAB TABLET PO PRN ×2 (16:24→20:31)
[2020-10-11] MEDS: LORazepam 0.5 MG TABLET PO PRN ×2 (16:24→20:31)
--- NOTE | 2020-10-11 16:28 | EKG ---
[facility] [address] [place] [address] Test Date: 2020-10-11 Test Time: 16:23:47 Pat Name: JONATAN SON Department: Room: [facility] Gender: F Vender: WILFRID : 1980 Requested By: SAMM FOFANA Order Number: [id number] Reading MD: Measurements Intervals [place] Rate: 97 P: 31 UT: 152 QRS: -23 QRSD: 92 T: 39 QT: 352 QTc: 451 Interpretive Statements SINUS RHYTHM LEFTWARD AXIS OTHERWISE NORMAL ECG RI6.02 Compared to ECG 09/30/2020 05:53:36 Sinus tachycardia no longer present Left anterior fascicular block no longer present
--- NOTE | 2020-10-11 16:37 | NUR ---
Upon arrival pt reports a fluttering in her chest and the RN report pt had a 8 beat run of v tach. Pt report just had picc line placed an hour ago. Reviewed engine monitor and it showed multiple PVC's since the PICC line was placed. Stat CXR ordered to review placement. Pt given medications as per orders. Family updated. Addendum: 10/11/20 at 1642 by ROSALINA VELARDE RN Amended: Links added.
--- NOTE | 2020-10-11 17:00 | NUR ---
Around 1630 patient stated reporting flutterers and chest pain, this RN was in room and IJ central line had been discontinued per ID orders 5 minutes prior. Patient was asked when the flutter and chest pain stated, patient stated when she was getting her PICC line in her left upper arm down in IR. rn patient care alarmed 7-8 beat of Vtach. Rapid response was called. Nursing Rad Tech, MIRROR FINISHING MACHINE OPERATOR, RT, civil cad tech all arrived. Patient did feel like she was having a little anxiety. Pain and anxiety medications were administered. Chest Xray was ordered STAT to check placement of PICC. Patient feeling better by dinner time. Pain had calmed down and anxiety was better. Lesly MEDICAL ADMINISTRATIVE with cardiology was page and made aware of patients symptoms. RN received orders for Mag and TSH levels. Chest xray stated PICC was in adequate place, Uma RN looked at the chest xray. No need to pull out PICC any further. Patient is comfortable in bed with call light within reach with mom and at bedside. Will keel monitoring patient.
--- NOTE | 2020-10-11 17:06 | RAD ---
EXAM: AP View of the chest DATE: 10/11/2020 4:42 PM INDICATION: Reason: PICC line placement / Spl. Instructions: / History: COMPARISON: 10/04/2020 10/02/2020 FINDINGS/ IMPRESSION: Left upper extremity PICC tip is seen to the level of the mid SVC, distal tip is not seen given motio n artifact. Consider repeat imaging for more accurate evaluation of the distal tip. Cardiomediastinal silhouette is stable. Right-sided parenchymal opacities are mildly progressed. Small right pleural effusion. No left pleura l effusion. No pneumothorax. Electronically signed by: Favian Negron MD (10/11/2020 5:03 PM) JOSEMANUEL
[2020-10-11 19:48] VITALS: BP 142/65
[2020-10-11] MEDS: DULoxetine HCL 30 MG CAPSULE.DR PO SCH (20:30)
[2020-10-11] MEDS: GABAPENTIN 300 MG CAPSULE. PO SCH (20:31)
[2020-10-11] MEDS: INSULIN GLARGINE SYRINGE. SQ SCH (21:00)
[2020-10-11 23:31] VITALS: BP 126/60
[2020-10-12] VITALS (8 sets, daily range): BP systolic 116–151; BP diastolic 57–95
[2020-10-12] MEDS: CEFTAROLINE FOSAMIL 600 MG in IV NORMAL SALINE 250ML 250 ML IV SCH ×3 (05:51→20:40)
[2020-10-12] MEDS ORDERED: IV RINGERS,LACTATED 1000ML 1,000 ML IV SCH (07:00)
[2020-10-12] MEDS: IPRATROPIUM BROMIDE 0.5 MG/2.5 ML NEBU. NEB SCH ×4 (07:25→20:00)
[2020-10-12] MEDS ORDERED: LIDOCAINE 2% VISCOUS 15 ML SOLUTION. SWSW ONE (07:30)
[2020-10-12] MEDS ORDERED: BENZOCAINE ONE 20% MUCOSAL SPRAY. MM (07:30)
[2020-10-12] MEDS: INSULIN LISPRO 300 UNITS/3 ML VIAL. SQ SCH ×5 (07:30→20:34)
[2020-10-12] MEDS ORDERED: LIDOCAINE 2% TOPICAL JELLY 30GM TUBE. TP ONE (07:30)
[2020-10-12] MEDS: LABETALOL HCL 100 MG TABLET. PO SCH ×2 (08:23→20:39)
[2020-10-12] MEDS: LACTOBACILLUS RHAMNOSUS GG 1 CAPSULE. PO SCH ×2 (09:00→20:39)
[2020-10-12] MEDS ORDERED: fentaNYL PF VIAL 100 MCG/2 ML VIAL ONE (09:07)
[2020-10-12] MEDS: NYSTATIN TOPICAL POWDER 15GM BOTTLE. TP SCH ×2 (09:30→20:41)
[2020-10-12] MEDS ORDERED: fentaNYL PF VIAL 100 MCG/2 ML VIAL IVP ONE (09:30)
--- NOTE | 2020-10-12 09:30 | NUR ---
Pt down to IR for R thoracentesis. Unable to extract fluid using sono guidance so pt taken to CT. Pt given dose of fentanyl for pain management. Decision made by Itzel ROSADO to stop procedure after consulting pulmonology and new imaging. Pt alert and oriented, voices understanding of situation, VSS. MICHAEL TROY
--- NOTE | 2020-10-12 10:14 | PDOC ---
PULMONARY PROGRESS NOTES DATE: 10/12/20 TIME: 10:13 Subjective Patient not more short of air, continues to be on 2 L Slept well, appetite is adequate no increased SOB or cough RUE edema Vitals Vital Signs Date Time Temp Pulse Resp B/P (MAP) Pulse Ox O2 Delivery O2 Flow Rate FiO2 10/12/20 09:20 99 15 146/93 (110) 96 Nasal Cannula 2.0 10/12/20 07:51 98.3 98.3 ROS: No Nausea, No Chest Pain, No Abdominal Pain, No Increase Cough General: Alert, Oriented X4, No acute distress HEENT: Other Lungs: Crackles (RLL) Cardiovascular: S1, S2 Abdomen: Soft, Non-tender, Other (obese) Neuro Exam: Alert Extremities: Other (RUE ) Skin: Warm, Dry Labs Laboratory Tests Test 10/10/20 11:20 10/10/20 16:40 10/10/20 20:33 10/11/20 04:50 Glucose (Fingerstick) 220 mg/dL (70-99) 164 mg/dL (70-99) 134 mg/dL (70-99) White Blood Count 7.6 x10^3/uL (4.0-11.0) Red Blood Count 3.27 x10^6/uL (3.50-5.40) Hemoglobin 10.4 g/dL (12.0-15.5) Hematocrit 30.4 % (36.0-47.0) Mean Corpuscular Volume 93 fL (79-100) Mean Corpuscular Hemoglobin 32 pg (25-35) Mean Corpuscular Hemoglobin Concent 34 g/dL (31-37) Red Cell Distribution Width 13.3 % (11.5-14.5) Platelet Count 480 x10^3/uL (140-400) Sodium Level 139 mmol/L (136-145) Potassium Level 4.0 mmol/L (3.5-5.1) Chloride Level 104 mmol/L (98-107) Carbon Dioxide Level 27 mmol/L (21-32) Anion Gap 8 (6-14) Blood Urea Nitrogen 9 mg/dL (7-20) Creatinine 0.6 mg/dL (0.6-1.0) Estimated GFR (Cockcroft-Gault) 111.3 Glucose Level 205 mg/dL (70-99) Calcium Level 8.4 mg/dL (8.5-10.1) Magnesium Level 2.1 mg/dL (1.8-2.4) Thyroid Stimulating Hormone (TSH) 1.559 uIU/mL (0.358-3.74) Test 10/11/20 07:46 10/11/20 11:43 10/11/20 15:29 10/11/20 21:06 Glucose (Fingerstick) 178 mg/dL (70-99) 216 mg/dL (70-99) 178 mg/dL (70-99) 103 mg/dL (70-99) Test 10/12/20 07:27 Glucose (Fingerstick) 136 mg/dL (70-99) Laboratory Tests Test 10/11/20 11:43 10/11/20 15:29 10/11/20 21:06 10/12/20 07:27 Glucose (Fingerstick) 216 mg/dL (70-99) 178 mg/dL (70-99) 103 mg/dL (70-99) 136 mg/dL (70-99) Medications Active Scripts Medications Dose Route/Sig Max Daily Dose Days Date Category Zofran (Ondansetron Hcl) 4 Mg Tablet 4 Mg IVP PRN Q6HRS PRN 09/29/20 Reported Humalog (Insulin Lispro) 100 Unit/1 Ml Cartridge 20 Unit SQ QIDACHS 09/29/20 Reported Lantus Solostar (Insulin Glargine,Hum.rec.anlog) 100 Unit/1 Ml Insuln.pen 20 Unit SQ QHS 09/29/[address] chest IMPRESSION: 1. No significant interval change in bilateral airspace disease. There is a moderate size loculated pleural effusion on the right, unchanged. 2. Mediastinal lymphadenopathy, also stable. 3. No new abnormality. Impression . 1. Acute hypoxic respiratory failure secondary to right lung pneumonia, and small right-sided pleural effusion , likely parapneumonic. 2. Abnormal CT chest possible pneumonia with parapneumonic effusion, 3. No significant tobacco history. 4. Right u ext cellulitis. Infectious Disease is following. 5. MRSA bacteremia, per ID 6. Encephalopathy multifactorial--resolved 7. Right upper extremity cellulitis--improving 8. Abnormal LFTs 9. Protein malnutrition 10. Possible empyema Plan . Updated 10/12 Discussed with interventional radiologist, not enough to fluid to drain, no indication for chest tube drainage. Small amount of fluid was sent for culture Discussed with Dr. Germain from infectious disease service, suspect patient may require thoracotomy and decortication. I have initiated the possible transfer to [facility]. I spoke with the transfer center. The above was relayed to the patient, she is aware, I answered all questions. Mother was at the bedside. We will continue current antibiotics for now. CYNTHIA results of pending. PLAN: Continue supplemental oxygen to keep sats above 92%, on 2 liters NC 6 min walk before Discharge Follow ID recs for ABX-- MRSA bacteremia Follow Cardiology recs-- NPO after midnight for CYNTHIA IR consult for right side thoracentesis Obtain RUE U/S IS to use hourly Will need repeat CT of chest in 6 to 8 weeks DVT/GI prophylaxis Discussed with JAYSHREE COSTA MD Oct 12, 2020 10:14
--- NOTE | 2020-10-12 10:24 | PDOC ---
Infectious Disease Note Subjective Subjective feeling better just back from thoracentesis, 1 ml was only came out ROS ROS no n/v/d/sob Vital Sign Vital Signs Vital Signs Date Time Temp Pulse Resp B/P (MAP) Pulse Ox O2 Delivery O2 Flow Rate FiO2 10/12/20 09:20 99 15 146/93 (110) 96 Nasal Cannula 2.0 10/12/20 07:51 98.3 98.3 Physical Exam PHYSICAL EXAM GENERAL: Alert, oriented x 3, in no acute distress. Looks better HEENT: Normocephalic, atraumatic. Anicteric. No thrush. Oral mucosa dry on O2 by nasal cannula. NECK: Supple, no JVD, no lymphadenopathy. Right neck central line clean. LUNGS: Poor inspiratory effort, no wheezing. Decreased breath sounds at the bases. HEART: S1, S2, No murmurs. ABDOMEN: Soft, nontender, nondistended, no rebound or guarding. EXTREMITIES: Right upper extremity swelling extending from hand to shoulder, mild redness, diffuse erythema and tenderness though improving, Radial pulse palpable. Decreased range of motion due to extreme swelling. No wrist, elbow or shoulder Effusion noted DERMATOLOGIC: No other open skin wounds noted. No generalized rash except for above. Dry scab present over the left cheek and right forearm. No abscess, no fluctuance. NEUROLOGIC: Alert, oriented x 3, grossly nonfocal. PSYCHIATRIC: Cooperative, calm, somewhat flat affect. Labs Lab Laboratory Tests Test 10/11/20 11:43 10/11/20 15:29 10/11/20 21:06 10/12/20 07:27 Glucose (Fingerstick) 216 mg/dL (70-99) 178 mg/dL (70-99) 103 mg/dL (70-99) 136 mg/dL (70-99) Micro Microbiology 10/08/20 Gram Stain - Final, Resulted 10/08/20 Aerobic and Anaerobic Culture - Preliminary, Resulted 10/07/20 Gram Stain Evaluation - Final, Complete 10/07/20 Respiratory Culture - Final, Complete 09/29/20 Urine Culture - Final, Complete 09/29/20 Blood Culture - Final, Complete NO GROWTH AFTER 5 DAYS Objective Assessment 1. Sepsis 2. MRSA Bacteremia, 1/ bottles at [facility], POA source left buttock skin lesion Repeat BC neg here ECHO noted 3. Leukocytosis and Bandemia. Improving 4. Severe right upper extremity swelling and pain. CTA negative for abscess Improving though slowly 5. Right upper extremity cellulitis. Improving 6. Diabetic ketoacidosis. 7. Abnormal LFTs. 8. Protein calorie malnutrition. 9. Neck pain with underlying chronic neck pain and back pain. Improved 10. High CK at outside hospital. Here within normal limits 11. Left buttock skin lesion, improving. MRSA 12. History of allergies to penicillin has tolerated ceftriaxone well at outside hospital 13. Pneumonia, Moderate RT Loculated Parapneumonic effusion s/p Thoracentesis 14. Mild CHF 2D echo noted,, CYNTHIA today Plan Plan of Care Limited choices for MRSA bacteremia and PNA and Parapneumonic effusion Cont Ceftaroline. 10/08 (tolerated Cefepime well) Follow-up repeat blood cultures here negative from 09/29 Pulm team following, Encouraged to elevate right upper extremity. Encourage PT and OT as tolerated Continue local care. Maintain aspiration precautions. C diff neg Place PICC line Discussed with RN d/w mother CYNTHIA today JAZZY OBRIEN MD Oct 12, 2020 10:24
[2020-10-12 11:25] LABS: U PREG PATIENT NEGATIVE (NEG)
[2020-10-12] MEDS ORDERED: MIDAZOLAM HCL/PF 2 MG/2 ML VIAL. ONE (12:26)
[2020-10-12] MEDS ORDERED: MIDAZOLAM HCL/PF 2 MG/2 ML VIAL. IV ONE (13:00)
--- NOTE | 2020-10-12 14:09 | NUR ---
SW following. Discussed with RN, pt from home with spouse, 2L, NPO. GURJIT met with pt, pt would like to do outpatient infusion and outpatient wound care at [facility]. Pt would prefer appointments be stacked. SW attempting to coordinate wound care and infusion time. Clinicals faxed to outpatient infusion [facility] script for abx. Dr. Germain stated this morning it would be Dapto Q24 and oral Zyvox. Unsure of when pt will be ready for discharge. Pt had a thoracentesis this morning and a CYNTHIA this afternoon. RN notified. GURJIT will continue to follow. Addendum: 10/12/20 at [address] Steen requesting a [facility] transfer. GURJIT faxed clinicals, provided phone number for the floor so [facility] can give the decision this evening when SW is not here. Packet and transfer request form provided to RN. Pt agreeable for transfer. GURJIT will continue to follow.
--- NOTE | 2020-10-12 16:18 | CARD ---
MR#: [id number] Date of Study: 10/12/2020 Ordering Physician: CECIL BORIEN, Referring Physician: CECIL OBRINE Tech: Marybel Kidd ELIAS APPROVED REPORT EXAM: Transesophageal echocardiogram with color flow Doppler. INDICATION RISK FACTORS Hypertension Obesity Reason For Test : Rule out endocarditis. PROCEDURE After obtaining informed consent, patient underwent transesophageal echo in the PACU. Type of Sedation : General Anesthesia Sedation was administered by Anesthesia service. Sedation was achieved with Propofol 160 intravenously. Transesophageal probe was inserted and advanced into esophagus by Abhinav Muro MD. The CYNTHIA was performed without complications. Throughout the procedure, the blood pressure, pulse oximetry, cardiac rhythm, and rate were monitored . The patient tolerated the procedure without adverse effects. Recovery from general anesthesia was une ventful and vital signs were stable. LEFT VENTRICLE The left ventricle is normal size. There is normal left ventricular wall thickness. The left ventricu lar systolic function is normal and the ejection fraction is within normal range. Estimated ejection fraction 60%. There is normal LV segmental wall motion. No left ventricle thrombus noted on this stud y. There is no ventricular septal defect visualized. There is no left ventricular aneurysm. There is no mass noted in the left ventricle. RIGHT VENTRICLE The right ventricle is normal size. There is normal right ventricular wall thickness. The right ventr icular systolic function is normal. ATRIA The left atrium size is normal. The right atrium size is normal. The interatrial septum is intact wit h no evidence for an atrial septal defect or patent foramen ovale as noted on 2-D or Doppler imaging. There is no thrombus noted in the left atrial appendage. AORTIC VALVE The aortic valve is normal in structure and function. Doppler and Color Flow revealed no significant aortic regurgitation. There is no significant aortic valvular stenosis. There is no aortic valvular v egetation. MITRAL VALVE The mitral valve is normal in structure and function. There is no evidence of mitral valve prolapse. There is no mitral valve stenosis. Doppler and Color Flow revealed no mitral valve regurgitation note d. TRICUSPID VALVE The tricuspid valve is normal in structure and function. Doppler and Color Flow revealed no tricuspid valve regurgitation noted. There is no tricuspid valve prolapse or vegetation. There is no tricuspid valve stenosis. PULMONIC VALVE The pulmonary valve is normal in structure and function. Doppler and Color Flow revealed no pulmonic valvular regurgitation. There is no pulmonic valvular stenosis. GREAT VESSELS The aortic root is normal in size. The ascending aorta is normal in size. A venous catheter is seen i n the SVC without any clear evidence of thrombus on infection. Critical Notification Critical Value: No <Conclusion> The left ventricular systolic function is normal and the ejection fraction is within normal range. E stimated ejection fraction 60%. There is normal LV segmental wall motion. A venous catheter is seen in the SVC without any clear evidence of thrombus on infection. No evidence of endocarditis on the visualized cardiac structures. Signed by : Vinny Muro, Electronically Approved : 10/12/2020 16:17:36
[2020-10-12] MEDS: oxyCODONE/APAP 5/325 1 TAB TABLET PO PRN (20:38)
[2020-10-12] MEDS: LORazepam 0.5 MG TABLET PO PRN (20:39)
[2020-10-12] MEDS: GABAPENTIN 300 MG CAPSULE. PO SCH (20:39)
[2020-10-12] MEDS: DULoxetine HCL 30 MG CAPSULE.DR PO SCH (20:39)
[2020-10-12] MEDS: INSULIN GLARGINE SYRINGE. SQ SCH (20:50)
[2020-10-13] MEDS: oxyCODONE/APAP 5/325 1 TAB TABLET PO PRN ×2 (01:05→12:13)
[2020-10-13 03:00] VITALS: BP 118/67
[2020-10-13] MEDS: CEFTAROLINE FOSAMIL 600 MG in IV NORMAL SALINE 250ML 250 ML IV SCH ×2 (06:00→14:45)
[2020-10-13 07:00] VITALS: BP 121/79
[2020-10-13 07:06] LABS: ALBUMIN 1.9 g/dL (3.4-5.0); ALBUMIN/GLOBULIN RATIO 0.4 (1.0-1.7); CALCIUM 8.5 mg/dL (8.5-10.1); CREATININE 0.7 mg/dL (0.6-1.0); GFR 93.2; POTASSIUM 3.8 mmol/L (3.5-5.1); TOTAL BILIRUBIN 0.6 mg/dL (0.2-1.0); TOTAL PROTEIN 7.3 g/dL (6.4-8.2)
[2020-10-13 07:26] LABS: HEMOGLOBIN 10.4 g/dL (12.0-15.5); RED BLOOD COUNT 3.22 x10^6/uL (3.50-5.40); RED CELL DISTRIBUTION WIDTH 13.2 % (11.5-14.5)
[2020-10-13] MEDS: INSULIN LISPRO 300 UNITS/3 ML VIAL. SQ SCH ×2 (07:30→11:30)
[2020-10-13] MEDS: IPRATROPIUM BROMIDE 0.5 MG/2.5 ML NEBU. NEB SCH (08:00)
[2020-10-13] MEDS: LACTOBACILLUS RHAMNOSUS GG 1 CAPSULE. PO SCH (08:26)
[2020-10-13] MEDS: NYSTATIN TOPICAL POWDER 15GM BOTTLE. TP SCH (08:26)
[2020-10-13] MEDS: LABETALOL HCL 100 MG TABLET. PO SCH (08:26)
--- NOTE | 2020-10-13 09:53 | PDOC ---
PULMONARY PROGRESS NOTES DATE: 10/13/20 TIME: 09:53 Subjective Patient, continues to be on 2 L no increased SOB or cough RUE edema, more painful and swollen today Vitals Vital Signs Date Time Temp Pulse Resp B/P (MAP) Pulse Ox O2 Delivery O2 Flow Rate FiO2 10/13/20 08:26 101 121/79 10/13/20 07:00 97.5 18 92 Nasal Cannula 2.0 97.5 ROS: No Nausea, No Chest Pain, No Abdominal Pain, No Increase Cough General: Alert, Oriented X4, No acute distress HEENT: Other Lungs: Crackles (RLL) Cardiovascular: S1, S2 Abdomen: Soft, Non-tender, Other (obese) Neuro Exam: Alert Extremities: Other (RUE ) Skin: Warm, Dry Labs Laboratory Tests Test 10/11/20 11:43 10/11/20 15:29 10/11/20 21:06 10/12/20 07:27 Glucose (Fingerstick) 216 mg/dL (70-99) 178 mg/dL (70-99) 103 mg/dL (70-99) 136 mg/dL (70-99) Test 10/12/20 11:10 10/12/20 11:28 10/12/20 14:52 10/12/20 16:05 Urine Test Negative (NEG) Glucose (Fingerstick) 146 mg/dL (70-99) 150 mg/dL (70-99) SARS-CoV-2 Antigen (Rapid) Negative (NEGATIVE) Test 10/12/20 20:05 10/13/20 04:30 10/13/20 08:05 Glucose (Fingerstick) 123 mg/dL (70-99) 136 mg/dL (70-99) White Blood Count 7.0 x10^3/uL (4.0-11.0) Red Blood Count 3.22 x10^6/uL (3.50-5.40) Hemoglobin 10.4 g/dL (12.0-15.5) Hematocrit 30.0 % (36.0-47.0) Mean Corpuscular Volume 93 fL (79-100) Mean Corpuscular Hemoglobin 32 pg (25-35) Mean Corpuscular Hemoglobin Concent 35 g/dL (31-37) Red Cell Distribution Width 13.2 % (11.5-14.5) Platelet Count 541 x10^3/uL (140-400) Sodium Level 139 mmol/L (136-145) Potassium Level 3.8 mmol/L (3.5-5.1) Chloride Level 104 mmol/L (98-107) Carbon Dioxide Level 29 mmol/L (21-32) Anion Gap 6 (6-14) Blood Urea Nitrogen 6 mg/dL (7-20) Creatinine 0.7 mg/dL (0.6-1.0) Estimated GFR (Cockcroft-Gault) 93.2 BUN/Creatinine Ratio 9 (6-20) Glucose Level 133 mg/dL (70-99) Calcium Level 8.5 mg/dL (8.5-10.1) Total Bilirubin 0.6 mg/dL (0.2-1.0) Aspartate Amino Transf (AST/SGOT) 21 U/L (15-37) Alanine Aminotransferase (ALT/SGPT) 17 U/L (14-59) Alkaline Phosphatase 271 U/L (46-116) Total Protein 7.3 g/dL (6.4-8.2) Albumin 1.9 g/dL (3.4-5.0) Albumin/Globulin Ratio 0.4 (1.0-1.7) Laboratory Tests Test 10/12/20 11:10 10/12/20 11:28 10/12/20 14:52 10/12/20 16:05 Urine Test Negative (NEG) Glucose (Fingerstick) 146 mg/dL (70-99) 150 mg/dL (70-99) SARS-CoV-2 Antigen (Rapid) Negative (NEGATIVE) Test 10/12/20 20:05 10/13/20 04:30 10/13/20 08:05 Glucose (Fingerstick) 123 mg/dL (70-99) 136 mg/dL (70-99) White Blood Count 7.0 x10^3/uL (4.0-11.0) Red Blood Count 3.22 x10^6/uL (3.50-5.40) Hemoglobin 10.4 g/dL (12.0-15.5) Hematocrit 30.0 % (36.0-47.0) Mean Corpuscular Volume 93 fL (79-100) Mean Corpuscular Hemoglobin 32 pg (25-35) Mean Corpuscular Hemoglobin Concent 35 g/dL (31-37) Red Cell Distribution Width 13.2 % (11.5-14.5) Platelet Count 541 x10^3/uL (140-400) Sodium Level 139 mmol/L (136-145) Potassium Level 3.8 mmol/L (3.5-5.1) Chloride Level 104 mmol/L (98-107) Carbon Dioxide Level 29 mmol/L (21-32) Anion Gap 6 (6-14) Blood Urea Nitrogen 6 mg/dL (7-20) Creatinine 0.7 mg/dL (0.6-1.0) Estimated GFR (Cockcroft-Gault) 93.2 BUN/Creatinine Ratio 9 (6-20) Glucose Level 133 mg/dL (70-99) Calcium Level 8.5 mg/dL (8.5-10.1) Total Bilirubin 0.6 mg/dL (0.2-1.0) Aspartate Amino Transf (AST/SGOT) 21 U/L (15-37) Alanine Aminotransferase (ALT/SGPT) 17 U/L (14-59) Alkaline Phosphatase 271 U/L (46-116) Total Protein 7.3 g/dL (6.4-8.2) Albumin 1.9 g/dL (3.4-5.0) Albumin/Globulin Ratio 0.4 (1.0-1.7) Medications Active Scripts Medications Dose Route/Sig Max Daily Dose Days Date Category Zofran (Ondansetron Hcl) 4 Mg Tablet 4 Mg IVP PRN Q6HRS PRN 09/29/20 Reported Humalog (Insulin Lispro) 100 Unit/1 Ml Cartridge 20 Unit SQ QIDACHS 09/29/20 Reported Lantus Solostar (Insulin Glargine,Hum.rec.anlog) 100 Unit/1 Ml Insuln.pen 20 Unit SQ QHS 09/29/[address] chest IMPRESSION: 1. No significant interval change in bilateral airspace disease. There is a moderate size loculated pleural effusion on the right, unchanged. 2. Mediastinal lymphadenopathy, also stable. 3. No new abnormality. Impression . 1. Acute hypoxic respiratory failure secondary to right lung pneumonia, and small right-sided pleural effusion , likely parapneumonic. 2. Abnormal CT chest possible pneumonia with parapneumonic effusion, S/P thoracentesis on 10/11/20-- fluid neg for culture 3. No significant tobacco history. 4. Right u ext cellulitis. Infectious Disease is following. 5. MRSA bacteremia, per ID 6. Encephalopathy multifactorial--resolved 7. Right upper extremity cellulitis--improving 8. Abnormal LFTs 9. Protein malnutrition 10. Possible empyema Plan . Updated 10/13/20 Continue supplemental oxygen to keep sats above 92%, on 2 liters NC S/P thoracentesis 10/11/20-- small amount fluid sent for culture NGTD CYNTHIA negative Follow ID recs for ABX Will need MRI of RUE, CT was negative ongoing RUE erythema and edema Transfer to [facility] for thoracotomy and decortication. DVT/GI PPX D/W RN and PT Updated 10/12 Discussed with interventional radiologist, not enough to fluid to drain, no indication for chest tube drainage. Small amount of fluid was sent for culture Discussed with Dr. Germain from infectious disease service, suspect patient may require thoracotomy and decortication. I have initiated the possible transfer to [facility]. I spoke with the transfer center. The above was relayed to the patient, she is aware, I answered all questions. Mother was at the bedside. We will continue current antibiotics for now. CYNTHIA results of pending. PLAN: Continue supplemental oxygen to keep sats above 92%, on 2 liters NC 6 min walk before Discharge Follow ID recs for ABX-- MRSA bacteremia Follow Cardiology recs-- NPO after midnight for CYNTHIA IR consult for right side thoracentesis Obtain RUE U/S IS to use hourly Will need repeat CT of chest in 6 to 8 weeks DVT/GI prophylaxis Discussed with JAYSHREE COSTA MD Oct 13, 2020 09:53
--- NOTE | 2020-10-13 10:08 | PDOC ---
Infectious Disease Note Subjective Subjective Patient is feeling good although her right forearm has started swelling and painful again ROS ROS No nausea vomiting diarrhea chest pain shortness of breath or fever Vital Sign Vital Signs Vital Signs Date Time Temp Pulse Resp B/P (MAP) Pulse Ox O2 Delivery O2 Flow Rate FiO2 10/13/20 08:26 101 121/79 10/13/20 07:00 97.5 18 92 Nasal Cannula 2.0 97.5 Physical Exam PHYSICAL EXAM GENERAL: Alert, oriented x 3, in no acute distress. Looks better HEENT: Normocephalic, atraumatic. Anicteric. No thrush. Oral mucosa dry on O2 by nasal cannula. NECK: Supple, no JVD, no lymphadenopathy. Right neck central line clean. LUNGS: Poor inspiratory effort, no wheezing. Decreased breath sounds at the bases. HEART: S1, S2, No murmurs. ABDOMEN: Soft, nontender, nondistended, no rebound or guarding. EXTREMITIES: Right upper extremity swelling extending from hand to shoulder, mild redness, diffuse erythema and tenderness though improving, Radial pulse palpable. Decreased range of motion due to extreme swelling. No wrist, elbow or shoulder Effusion noted DERMATOLOGIC: No other open skin wounds noted. No generalized rash except for above. Dry scab present over the left cheek and right forearm. No abscess, no fluctuance. NEUROLOGIC: Alert, oriented x 3, grossly nonfocal. PSYCHIATRIC: Cooperative, calm, somewhat flat affect. Labs Lab Laboratory Tests Test 10/12/20 11:10 10/12/20 11:28 10/12/20 14:52 10/12/20 16:05 Urine Test Negative (NEG) Glucose (Fingerstick) 146 mg/dL (70-99) 150 mg/dL (70-99) SARS-CoV-2 Antigen (Rapid) Negative (NEGATIVE) Test 10/12/20 20:05 10/13/20 04:30 10/13/20 08:05 Glucose (Fingerstick) 123 mg/dL (70-99) 136 mg/dL (70-99) White Blood Count 7.0 x10^3/uL (4.0-11.0) Red Blood Count 3.22 x10^6/uL (3.50-5.40) Hemoglobin 10.4 g/dL (12.0-15.5) Hematocrit 30.0 % (36.0-47.0) Mean Corpuscular Volume 93 fL (79-100) Mean Corpuscular Hemoglobin 32 pg (25-35) Mean Corpuscular Hemoglobin Concent 35 g/dL (31-37) Red Cell Distribution Width 13.2 % (11.5-14.5) Platelet Count 541 x10^3/uL (140-400) Sodium Level 139 mmol/L (136-145) Potassium Level 3.8 mmol/L (3.5-5.1) Chloride Level 104 mmol/L (98-107) Carbon Dioxide Level 29 mmol/L (21-32) Anion Gap 6 (6-14) Blood Urea Nitrogen 6 mg/dL (7-20) Creatinine 0.7 mg/dL (0.6-1.0) Estimated GFR (Cockcroft-Gault) 93.2 BUN/Creatinine Ratio 9 (6-20) Glucose Level 133 mg/dL (70-99) Calcium Level 8.5 mg/dL (8.5-10.1) Total Bilirubin 0.6 mg/dL (0.2-1.0) Aspartate Amino Transf (AST/SGOT) 21 U/L (15-37) Alanine Aminotransferase (ALT/SGPT) 17 U/L (14-59) Alkaline Phosphatase 271 U/L (46-116) Total Protein 7.3 g/dL (6.4-8.2) Albumin 1.9 g/dL (3.4-5.0) Albumin/Globulin Ratio 0.4 (1.0-1.7) Micro Microbiology 10/08/20 Gram Stain - Final, Resulted 10/08/20 Aerobic and Anaerobic Culture - Preliminary, Resulted 10/07/20 Gram Stain Evaluation - Final, Complete 10/07/20 Respiratory Culture - Final, Complete 09/29/20 Urine Culture - Final, Complete 09/29/20 Blood Culture - Final, Complete NO GROWTH AFTER 5 DAYS Objective Assessment 1. Sepsis 2. MRSA Bacteremia, 1/4 bottles at [facility], A source left buttock skin lesion Repeat BC neg here ECHO noted 3. Leukocytosis and Bandemia. Improving 4. Severe right upper extremity swelling and pain. CTA negative for abscess Improving though slowly 5. Right upper extremity cellulitis. Improving 6. Diabetic ketoacidosis. 7. Abnormal LFTs. 8. Protein calorie malnutrition. 9. Neck pain with underlying chronic neck pain and back pain. Improved 10. High CK at outside hospital. Here within normal limits 11. Left buttock skin lesion, improving. MRSA 12. History of allergies to penicillin has tolerated ceftriaxone well at outside hospital 13. Pneumonia, Moderate RT Loculated Parapneumonic effusion s/p Thoracentesis 14. Mild CHF 2D echo noted,, CYNTHIA today Plan Plan of Care Limited choices for MRSA bacteremia and PNA and Parapneumonic effusion Cont Ceftaroline. 10/08 (tolerated Cefepime well) Follow-up repeat blood cultures here negative from 09/29 Pulm team following, Encouraged to elevate right upper extremity. Encourage PT and OT as tolerated Continue local care. Maintain aspiration precautions. C diff neg CYNTHIA negative Place PICC line Patient will likely need right forearm MRI ,last CT here was negative Patient is going to for CT surgery help Discussed with JAZZY EDWARDS MD Oct 13, 2020 10:08
--- NOTE | 2020-10-13 10:15 | NUR ---
SW following. Discussed with RN, pt from home with spouse, 2L (does not use at home), NPO, rapid COVID-19 negative. [facility] had a bed for pt last night at 1030pm, per RN pt did not want to go that late. GURJIT spoke with [facility] transfer this morning, they do not have a bed yet but will call when they have one. GURJIT will continue to follow. Addendum: 10/13/20 at 1451 by DALIA CAGLE [facility] called with a bed assignment for pt. Bed [id number]. Report number [id number]. Dr. Rueda admitting doctor. Transportation arranged with [facility] for 1500. RN notified. Transfer request already completed last night. No further SW needs.
[2020-10-13 11:00] VITALS: BP 120/64
--- NOTE | 2020-10-13 13:13 | RAD ---
Ultrasound guided Thoracentesis 10/11/2020 8:46 AM Clinical History: Loculated appearing right pleural effusion. Technique: Relative benefits risks and alternatives were discussed with the patient and/or their rep resentative. Written informed consent was obtained. The patient was placed in seated position. A bhaskar eout procedure was performed. Ultrasound evaluation demonstrates a small right pleural effusion. Effusion appears complex. A site f or skin entry was selected, and subsequently prepped and draped using sterile barrier technique. 1% lidocaine without epinepherine was administered for local anesthesia to the skin and subcutaenous tis sues. A 5 Pashto sheathed needle was passed into the pleural space only a few cc of turbid fluid was aspira barbie. This was sent for culture. Sheath was removed. Manual pressure was held. Impression: Attempted ultrasound-guided thoracentesis revealing only a few cc of fluid, which was sen t for culture Electronically signed by: Darin Robbins MD (10/13/2020 1:11 PM) [id number]
--- NOTE | 2020-10-13 15:20 | NUR ---
Report and pt packet given to EMS transport team. Pt discharging with left upper arm PICC line. Wound cleansed at redressed. Pt transported to [facility] by stretcher with her belongings. Randy from transfer center called and notified that pt is on the way with EMS. Report then called to SYDNI Ingram at and contact information given if RN has further questions.
--- NOTE | 2020-10-13 17:04 | NUR ---
Wound Care: Pt is discharging to [facility] for treatment. Enedina TROY reports that DC pics have already been taken.
--- NOTE | 2020-10-14 04:40 | PN ---
DATE: 10/13/2020 SUBJECTIVE: The patient is resting, slightly propped up in bed. She is awake, alert, complaining of pain in her right elbow and right forearm is more swollen, tender today. The swelling in the dorsum of the right hand and arm is much less and she apparently has had a transesophageal echocardiogram, which showed no evidence of any vegetation on her cardiac valves and it showed that she has normal left ventricular systolic function with normal ejection fraction, normal left ventricular segmental wall motion. The venous catheter is seen in superior vena cava without any clear evidence of thrombus or infection. No evidence of endocarditis on the visualized cardiac structures. An attempt at thoracentesis was done, but apparently there was not enough fluid and a decision currently was made to transfer the patient to [facility], the bed becomes available last night, but the patient declined transfer. We are waiting to get a bed for her from to be evaluated by the cardiothoracic surgeon for decortication. PHYSICAL EXAMINATION: GENERAL: When I examined her today, she looked well and was clearly in no apparent respiratory distress. She was pale, but no jaundice, cyanosed or thyromegaly. No jugular venous distention. No limb edema. VITAL SIGNS: Her heart rate was 101, blood pressure is 121/79, temperature was 97.5, respiratory rate was 18 and oxygen saturation was 92% on 2 liters of oxygen. The rest of the exam is stable. Her right forearm is more swollen and tender today. I did arrange for another venous Doppler ultrasound. LABORATORY DATA: Her lab work this morning showed a white cell count 7000, hemoglobin 10, hematocrit 30, MCV 93 and platelet count 541,000. Her chemistry showed a serum sodium 139, potassium 3.8, chloride 104, bicarbonate 29, anion gap of 6, BUN 6 and creatinine 0.7. Estimated GFR was 93 mL per minute. Her glucose 133, calcium was 8.5. Total bilirubin, AST and ALT were normal. Alkaline phosphatase slightly elevated. Total protein 7.3 and albumin is 1.9. ASSESSMENT: 1. Acute hypoxic respiratory failure. The patient continued to require oxygen. She desaturates without oxygen and she is now on 2 liters by nasal cannula, maintaining her oxygen saturation of 91-92%. 2. Bilateral pneumonia with right-sided pleural effusion that is loculated. 3. Markedly swollen right upper extremity with possible cellulitis. Her venous Doppler ultrasound showed no evidence of deep vein thrombosis. CT scan showed no evidence of drainable abscess. 4. The patient has a skin lesion in the left gluteal area that might be the source of her Staph infection. 5. The patient has poorly controlled type 2 diabetes mellitus, much better now. 6. Hypertension. 7. Hyperlipidemia. 8. Fatty liver. Abnormal liver enzymes that has improved. 9. Depression and anxiety. 10. Peripheral neuropathy. 11. Hyponatremia that has resolved. 12. Severe protein-calorie malnutrition. Serum albumin is 1.5 g/dL. 13. The patient has marked pleural thickening and she was referred, in fact was accepted by the cardiothoracic surgeon at [facility]. We are waiting for the bed available for her to be transferred for evaluation and perhaps decortication by the cardiothoracic surgeon. MELISSA/SINDY/ANNA DR: Kali TID: [id number]
== END 2020-10-13 15:28 | disposition short-term general hospital (02) | DRG 871 ==
LOC: 1 WEST ICU 15:00 → 6 SOUTH 10-05 16:49
PROVIDERS: ADMIT Internal Medicine; ATTEND Internal Medicine
PROC: 02H633Z Insertion of Infusion Device into Right Atrium, Percutaneous Approach (ICD-10-PCS; 2020-09-29)
PROC: B548ZZA Ultrasonography of Superior Vena Cava, Guidance (ICD-10-PCS; 2020-09-29)
PROC: 0W993ZZ Drainage of Right Pleural Cavity, Percutaneous Approach (ICD-10-PCS; principal; 2020-10-11)
PROC: 02HV33Z Insertion of Infusion Device into Superior Vena Cava, Percutaneous Approach (ICD-10-PCS; 2020-10-11)
PROC: B5181ZA Fluoroscopy of Superior Vena Cava using Low Osmolar Contrast, Guidance (ICD-10-PCS; 2020-10-11)
PROC: B548ZZA Ultrasonography of Superior Vena Cava, Guidance (ICD-10-PCS; 2020-10-11)
PROC: B24BZZ4 Ultrasonography of Heart with Aorta, Transesophageal (ICD-10-PCS; 2020-10-12)
DX: A41.9 Sepsis, unspecified organism (principal); E11.10 Type 2 diabetes mellitus with ketoacidosis without coma; J96.01 Acute respiratory failure with hypoxia; E43 Unspecified severe protein-calorie malnutrition; J15.6 Pneumonia due to other Gram-negative bacteria; J15.9 Unspecified bacterial pneumonia; E87.1 Hypo-osmolality and hyponatremia; G93.40 Encephalopathy, unspecified; L03.113 Cellulitis of right upper limb; L02.31 Cutaneous abscess of buttock; E78.5 Hyperlipidemia, unspecified; E87.6 Hypokalemia; F32.9 Major depressive disorder, single episode, unspecified; F41.9 Anxiety disorder, unspecified; G62.9 Polyneuropathy, unspecified; G89.4 Chronic pain syndrome; I11.0 Hypertensive heart disease with heart failure; I50.9 Heart failure, unspecified; K76.0 Fatty (change of) liver, not elsewhere classified; L02.92 Furuncle, unspecified; R65.20 Severe sepsis without septic shock; Z20.822 Contact with and (suspected) exposure to COVID-19; Z83.3 Family history of diabetes mellitus; Z87.891 Personal history of nicotine dependence; Z88.0 Allergy status to penicillin; Z91.19 Patient's noncompliance with other medical treatment and regimen; R94.5 Abnormal results of liver function studies; E66.9 Obesity, unspecified; Z68.34 Body mass index [BMI] 34.0-34.9, adult
CPT/HCPCS: 32555; 36415; 36556; 36573; 36600; 71045; 71250; 71260; 73020; 73060; 73070; 73200; 73201; 74177; 76937; 77001; 80048; 80053; 80202; 81001; 81025; 82550; 82805; 82962; 83605; 83735; 83880; 84100; 84443; 85007; 85025; 85027; 85651; 86140; 86666; 87040; 87070; 87071; 87075; 87077; 87086; 87106; 87186; 87205; 87426; 87493; 93005; 93306; 93312; 94640; 94760; C1751; C1892; J0692; J0712; J0878; J1170; J1815; J1940; J2250; J2270; J2997; J3010; J3370; J3490; J7030; J7040; J7050; Q9967; U0003; U0005; 97110-GO; 97110-GP; 97116-GP; 97530-GO; 97530-GP; 97535-GO; G0378; J7644